=== PATIENT | female | born 1980 | race Caucasian/White ===

== ENCOUNTER 2023-06-19 21:17 | Outpatient (CLI) | payer MEDICARE, OTHER, SELFPAY ==
--- OUTSIDE RECORDS SUMMARY | 2023-06-19 21:21 | XMS_ITS | Encounter Summary ---
Author Name Unknown Organization [facility] Address [address] [place] [address] Care Team Providers Care General Farm Manager Name Role Phone Lesley Valencia M.D. Primary Care Provider Encounter Details Date Type Department Care Team (Late st Contact Info) Description 05/26/2023 Clinical Communication Department of Obstetrics and Gynecology in [place], [place] [address] [place] [phone] Negrita Robertson, KIRSTEN, C.N.P. [address] [phone] Social History Tobacco Use Types Packs/Day Years Used Date Smoking Tobacco: Heavy Smoker Cigarettes 1.5 Smokeless Tobacco: Never Alcohol Use Standard Drinks/Week Comments No 0 (1 standard drink = 0.6 oz pure alcohol) diagnossed with alcohol abuse in 2007 Overall Financial Resource Strain (CARDIA) Answe r Date Recorded How hard is it for you to pa y for the very basics like food, housing, medical care, and heating? Somewhat hard 03/29/2023 Exercise Vital Sign Answer Date Recorde d On average, how many days pe r week do you engage in moderate to strenuous exercise (like a brisk walk)? 1 day 03/29/2023 On average, how many minutes do you engage in exercise at this level? 10 min 03/29/2023 Hunger Vital Sign Answer Date Recorded Within the past 12 months, y ou worried that your food would run out before you got the money to buy more. Sometimes true Within the past 12 months, t he food you bought just didn't last and you didn't have money to get more. Never true PRAPARE - Transportation Answer Date Re corded In the past 12 months, has l ack of transportation kept you from medical appointments or from getting medications? No 03/12 In the past 12 months, has l ack of transportation kept you from meetings, work, or from getting things needed for daily living? No 03/29/2023 Nutrition Answer Date Recorded Nutrition: EVOO Fat Source Unknown 03/29 On average, how many serving s of fruits and vegetables do you eat per day (serving size is equal to 1 cup or approximately the size of a tennis ball)? 0-2 03/29/2023 Dental Answer Date Recorded Dental: Regular Dentist Yes 03/29/20 Employment Answer Date Recorded Employment status Permanently disabled Housing Stability Answer Date Recorded What is your living situation today? I have a [facility] place to live 03/29/2023 Sex and Gender Information Value Date Recorded Sex Assigned at Female 03/29/2023 10:01 AM CDT Gender Identity Female 03/29/2023 10:01 AM CDT Sexual Orientation Lesbian or Gill 03/29/2023 10 :01 AM CDT documented as of this encounter Miscellaneous Notes * Telephone Encounter - Maria D Church R.N. - 05/29/2023 8:23 AM LITHOGRAPHIC PROOFER APPRENTICE Patient notified of Negrita's recommendations.Questions when to take the medication. Advised the prescription states daily. She will read prescription insert and notify if any questions. OGRAPHIC PROOFER APPRENTICE * Telephone Encounter - Kristian Garcia R.N. - 05/26/2023 4:45 PM LITHOGRAPHIC PROOFER APPRENTICE Detailed message left to start the Veozah and discontinue taking the black cohosh. Encouraged patient to call back with any side effects or additional questions. OGRAPHIC PROOFER APPRENTICE documented in this encounter Plan of Treatment Upcoming Encounters Date Type Department Care Team (Latest Contact Info) Description 07/18/2023 8:30 AM LITHOGRAPHIC PROOFER APPRENTICE Procedure visit Department of Obstetrics and Gynecology in [place], [place] [address] [place] [phone] Negrita Robertson APRN, C.N.P. [address] [phone] Discharge Disposition: Home or Self Care documented as of this encounter Visit Diagnoses Not on filedocumented in this encounter Care Teams General Farm Manager Relationship Specialty Start Date End Date Lesley Valencia M.D. [address] [place] [phone] PCP - General Family Medicine 03/17/22 documented as of this encounter
--- OUTSIDE RECORDS SUMMARY | 2023-06-19 21:21 | XMS_ITS | Encounter Summary ---
Author Name Unknown Organization [facility] Address [address] [place] [address] Care Team Providers Care Brilliandeer Lopper Name Role Phone Lesley Valencia M.D. Primary Care Provider Encounter Details Date Type Department Care Team (Late st Contact Info) Description 05/25/2023 Orders Only Pharmacy Prior Auth [phone] Sonja Renee Social History Tobacco Use Types Packs/Day Years [...] your living situation today? I have a [facility] place to live 03/29/2023 Sex and Gender Information Value Date Recorded Sex Assigned at Female 03/29/2023 10:01 AM CDT Gender Identity Female 03/29/2023 10:01 AM CDT Sexual Orientation Lesbian or Gill 03/29/2023 10 :01 AM CDT documented as of this encounter Plan of Treatment Upcoming Encounters Date Type Department Care Team (Latest Contact Info) Description 07/18/2023 8:30 AM CAR PUSHER Procedure visit Department of Obstetrics and Gynecology in [place], [place] [address] [place] [phone] Negrita Robertson, FULLER BRUSH WORKER, C.N.P. [address] [phone] Discharge Disposition: Home or Self Care documented as of this encounter Visit Diagnoses Not on filedocumented in this encounter Care Teams Brilliandeer Lopper Relationship Specialty Start Date End Date Lesley Valencia M.D. [address] [place] [phone] PCP - General Family Medicine 03/17/22 documented as of this encounter
--- OUTSIDE RECORDS SUMMARY | 2023-06-19 21:21 | XMS_ITS | Clinical Summary ---
Author Name Unknown Organization [facility] Address [place], [place] [address] Care Team Providers Care Pharmacy Buyer Name Role Phone Oliver Herrera MD Unavailable Mariano Velazco MD Primary Care Provider Vikki Cross MD Unavailable Claudy Hurtado RN Unavailable Екатерина Dumont TRAY LINE SUPERVISOR Unavailable Allergies Active Allergy Reactions Criticality Noted Date Comments Adhesive Tape-Silicones Rash 03/04/2022 Bupropion Hcl Seizures High 08/27/2021 Buspirone Intolerance-Can't Take 09/04/2018 Suicidal ideation Varenicline Intolerance-Can't Take 09/04/2018 Suicidal ideation Clonidine Hcl Rash Low 12/23/2021 Lurasidone Other - Describe In Comment Field 04/07/2023 Increase cravings for nicotine Fluoxetine Other - Describe In Comment Field 02/09/2022 Weird dreams Quetiapine Fumarate Other - Describe In Comment Field 03/04/2022 Quetiapine Vestibular Toxicity High 12/27/2021 Ketorolac Itching 03/11/2022 Tramadol Itching 11/04/2022 States she had med around a year ago, that caused itching. Varenicline Tartrate Intolerance-Can't Take 01/31/2023 Medications Medication Sig Dispensed Refills Start Date End Date Status CaneIndications:Ch ronic bilateral low back pain without sciatica Single Point Cane for home use. 1 Device 0 06/22/19 19 Active Shower ChairIndications:C hronic bilateral low back pain without sciatica,Bulge of lumbar disc without myelopathy,Pseudos eizures For home use. 1 Each 0 04/27/20 21 Active albuterol (PROVENTIL) 0.083 % neb solutionIndication s:Moderate persistent asthma with acute exacerbation Inhale 3 mL (2.5 mg) via a nebulizer every 4 hours if needed for Cough 1st choice or Shortness of Breath 1st choice. 75 mL 09/14/19 22 Active albuterol-ipratrop ium (DUONEB) (2.5-0.5 mg) in 3 mL NEBULIZATION solutionIndication s:Moderate persistent asthma, unspecified whether complicated Inhale 3 mL via a nebulizer 4 times daily if needed for Shortness of Breath 1st choice (shortness of breath). 75 mL 0 11/30/19 22 Active NebulizerIndicatio ns:Moderate persistent asthma with acute exacerbation Nebulizer, disposable neb kit x 4, reuseable neb kit x 1, mask x 1, filters x 1. Frequency of use: daily; Medication: Albuterol and Duonebs. Length of need: lifelong months 1 Each 0 02/10/20 22 Active SUMAtriptan (IMITREX) 100 mg tabletIndications: Migraine syndrome Take 1 Tablet (100 mg) by mouth every 2 hours if needed for Migraine. Give at minimum 2hrs apart. Max Dose: 200mg per 24hrs. 10 Tablet 3 02/10/20 22 Active acetaminophen (TYLENOL EXTRA STRGTH) 500 mg tabletIndications: Chronic midline low back pain without sciatica,Chronic radicular cervical pain Take 2 Tablets (1,000 mg) by mouth every 6 hours if needed for Pain. Max acetaminophen dose: 4000mg in 24 hrs. 60 Tablet 6 03/09/20 22 Active fluticasone (50 mcg per actuation) nasal solution (FLONASE)Indicatio ns:Acute maxillary sinusitis, recurrence not specified Inhale 1 [place] into affected nostril(s) once daily. 16 g 0 03/23/20 22 Active cyclobenzaprine (FLEXERIL) 10 mg tabletIndications: Chronic low back pain without sciatica, unspecified back pain laterality TAKE 1 TABLET (10 MG) BY MOUTH 3 TIMES DAILY IF NEEDED FOR MUSCLE SPASM. 90 Tablet 3 05/23/20 Active blood-glucose meterIndications:P rediabetes As directed. Dispense meter covered by pt ins. E11.9 NIDDM type II - Test 1 time/day 1 Each 0 07/27/19 Active blood sugar diagnostic (Blood Glucose Test) stripIndications:P rediabetes Test 1 times per day. 100 Each 07/27/19 Active lancetsIndications :Prediabetes As directed. Test 1 times per day. 100 Each 07/27/19 Active melatonin 10 mg tabIndications:Ins omnia, unspecified type Take 2 Tablets (20 mg) by mouth at bedtime. 0 08/04/19 Active TENS unit and electrodes cmpkIndications:Ch ronic midline low back pain without sciatica As directed. She has the unit, but needs electrodes and pads. Use the Tens unit on the low back as needed. 1 Each 0 08/11/19 Active dicyclomine (BENTYL) 20 mg tabletIndications: Chronic bilateral low back pain without sciatica TAKE 1 TABLET BY MOUTH FOUR TIMES A DAY NEEDED FOR ABDOMINAL PAIN. 30 Tablet 0 08/31/19 Active ibuprofen (ADVIL; MOTRIN) 200 mg tabletIndications: Acute pain of left knee TAKE 2 TABLETS (400 MG) BY MOUTH EVERY 4 HOURS IF NEEDED FOR PAIN. 720 Tablet 1 09/24/19 Active metoprolol succinate (TOPROL XL) 50 mg sustained-release tabletIndications: Tachycardia Take 1 Tablet (50 mg) by mouth once daily. 90 Tablet 3 10/20/19 Active OLANzapine (ZYPREXA, FILM COATED TABLET,) 10 mg tabletIndications: Bipolar 1 disorder (HC) 1 Tablet nightly as needed for manic symptoms (decreased sleep, increased energy, impulsivity) 30 Tablet 2 12/24/19 Active Walker - 4 wheelsIndications: Traumatic brain injury, without loss of consciousness, sequela (HC),Chronic bilateral low back pain without sciatica Repair walker. 1 Each 0 01/25/20 Active dextroamphetamine- amphetamine (AdderalL) 20 mg tabletIndications: ADHD (attention deficit hyperactivity disorder), combined type Take 1 Tablet (20 mg) by mouth two times daily. 60 Tablet 0 10/23/20 23 Active propranoloL (INDERAL) 20 mg tabletIndications: Anxiety disorder, unspecified type Take 1-2 Tablets (20-40 mg) by mouth 3 times daily if needed (anxiety/panic symptoms). 180 Tablet 5 02/01/20 23 Active loperamide (IMODIUM) 2 mg capsuleIndications :Abdominal pain, unspecified abdominal location,Loose stools Take 2 capsules (4mg) orally with 1st loose stool, then 1 capsule (2mg) with other loose stools. Max 16 mg in 24 hrs. 20 Capsule 0 02/16/20 23 Active diphenhydrAMINE (BENADRYL) 25 mg tabletIndications: Withdrawal from other psychoactive substance (HC) Take 1 Tablet (25 mg) by mouth every 6 hours if needed for Sleep. 15 Tablet 0 03/20/20 23 Active cetirizine (ZYRTEC) 10 mg tabletIndications: Congestion of right ear TAKE 1 TABLET (10 MG) BY MOUTH ONCE DAILY. 90 Tablet 3 03/21/20 23 Active atorvastatin (LIPITOR) 10 mg tabletIndications: Dyslipidemia TAKE 1 TABLET BY MOUTH AT BEDTIME 90 Tablet 3 03/21/20 23 Active durable medical equipment (DME)Indications:R ight carpal tunnel syndrome Quickfit wrist II, univ, rt 1 Each 0 03/24/20 23 Active Mucus-ER MAX 1,200 mg [id number]:Ac [place] sal[place] maxillary sinusitis, recurrence not specified TAKE 1 TABLET BY MOUTH EVERY 12 HOURS NEEDED FOR EXPECTORATION 14 Tablet 5 04/07/20 23 Active furosemide (LASIX) 20 mg tabletIndications: Bilateral lower extremity edema TAKE 1 TABLET BY MOUTH EVERY MORNING 30 Tablet 11 04/07/20 23 Active ARIPiprazole (ABILIFY) 10 mg tabletIndications: Bipolar 1 disorder (HC) Take 1 Tablet (10 mg) by mouth once daily. 90 Tablet 1 04/10/20 23 Active traZODone (DESYREL) 100 mg tabletIndications: Insomnia, unspecified type Take 2 Tablets (200 mg) by mouth at bedtime. 180 Tablet 1 04/10/20 23 Active dextroamphetamine- amphetamine (AdderalL) 20 mg tabletIndications: ADHD (attention deficit hyperactivity disorder), combined type Take 1 Tablet (20 mg) by mouth two times daily. 60 Tablet 0 07/01/19 24 Active ipratropium-albute roL (COMBIVENT RESPIMAT) (20-100 mcg each actuation) mist inhalerIndications :Moderate persistent asthma with acute exacerbation Inhale 1 Puff by mouth four times daily. 1 Each 11 04/19/20 23 Active levalbuterol (XOPENEX HFA) 45 mcg/actuation inhalerIndications :Moderate persistent asthma with acute exacerbation Inhale 1-2 Puffs by mouth every 4 hours if needed for Wheezing. 15 g 6 04/19/20 23 Active fluticasone furoate (Arnuity Ellipta) 200 mcg/actuation inhalerIndications :Moderate persistent asthma with acute exacerbation Inhale 1 Puff by mouth once daily. 1 Each 11 04/19/20 23 Active metFORMIN (GLUCOPHAGE XR) 500 mg Extended-Release tabletIndications: Class 2 severe obesity with body mass index (BMI) of 35 to 39.9 with serious comorbidity (HC) Take 2 Tablets (1,000 mg) by mouth once daily. 180 Tablet 3 04/24/20 Active bisacodyL (DULCOLAX) 5 mg delayed release tabletIndications: Generalized abdominal pain,Constipation by delayed colonic transit TAKE 1 TABLET (5 MG) BY MOUTH ONCE DAILY. 90 Tablet 3 05/08/20 23 Active pregabalin (LYRICA) 150 mg capsuleIndications :Chronic bilateral low back pain without sciatica,Chronic pain syndrome TAKE ONE CAPSULE BY MOUTH THREE TIMES A DAY 90 Capsule 5 05/16/20 23 Active sulfacetamide-sulf ur , 10 - 5%, (SULFACET-R) 10-5 % (w/w) clsrIndications:Hi dradenitis suppurativa wash affected area(s) daily. 340 g 2 05/23/20 23 Active clindamycin 1% (CLEOCIN-T) 1 % gelIndications:Hid radenitis suppurativa Apply to affected areas 2 times a day . 60 g 3 05/23/20 23 Active doxycycline (VIBRAMYCIN) 100 mg capsuleIndications :Hidradenitis suppurativa take 1 by mouth two times daily with full glass of water and food. 20 Capsule 0 05/23/20 23 Active acetaminophen-code ine (TYLENOL #3) 300-30 mg per tabletIndications: Nondisplaced fracture of medial malleolus of left tibia, subsequent encounter for closed fracture with routine healing,Muscle strain of left lower leg, initial encounter Take 1 Tablet by mouth every 4 hours if needed for Pain. Max acetaminophen dose: 4000mg in 24 hrs. 20 Tablet 0 05/23/20 23 Active ondansetron (ZOFRAN ODT) 4 mg disintegrating tabletIndications: Withdrawal from other psychoactive substance (HC) PLACE 2 TABLETS (8 MG) ON THE TONGUE EVERY 8 HOURS IF NEEDED FOR NAUSEA/VOMITING. 10 Tablet 0 05/30/20 23 Active dextroamphetamine- amphetamine (AdderalL) 20 mg tabletIndications: ADHD (attention deficit hyperactivity disorder), combined type Take 1 Tablet (20 mg) by mouth two times daily. 60 Tablet 0 05/30/20 23 Active acetaminophen-code ine (TYLENOL #3) 300-30 mg per tabletIndications: Nondisplaced fracture of medial malleolus of left tibia, subsequent encounter for closed fracture with routine healing,Muscle strain of left lower leg, initial encounter Take 1 Tablet by mouth every 4 hours if needed for Pain. Max acetaminophen dose: 4000mg in 24 hrs. 20 Tablet 0 05/30/20 23 Active lansoprazole (PREVACID) 30 mg capsuleIndications :Gastroesophageal reflux disease, unspecified whether esophagitis present Take 1 Capsule (30 mg) by mouth two times daily before meals. 60 Capsule 11 06/13/19 24 Active codeine-guaiFENesi n (ROBITUSSIN AC) 10-100 mg/5 mL liquidIndications: Cough, unspecified type Take 5 mL by mouth every 6 hours if needed for Cough. Max dose 60 mL per 24 hrs. 280 mL 0 06/13/19 24 Active acetaminophen-code ine (TYLENOL #3) 300-30 mg per tabletIndications: Nondisplaced fracture of medial malleolus of left tibia, subsequent encounter for closed fracture with routine healing,Muscle strain of left lower leg, initial encounter Take 1 Tablet by mouth every 4 hours if needed for Pain. Max acetaminophen dose: 4000mg in 24 hrs. 20 Tablet 0 06/14/19 24 Active diclofenac (VOLTAREN) 75 mg delayed-release tabletIndications: Patellofemoral syndrome of both knees,Fibromyalgia ,Chronic pain of right knee Take 1 Tablet (75 mg) by mouth two times daily with meals. 60 Tablet 1 06/14/19 24 Active esomeprazole (NEXIUM) 40 mg capsule Take 1 Capsule by mouth once daily. 0 01/28/20 22 024 Discontinued(*M ed complete/Regime n complete/Level of care change) lansoprazole (PREVACID) 30 mg capsuleIndications :Gastroesophageal reflux disease, unspecified whether esophagitis present TAKE 1 CAPSULE BY MOUTH EVERY DAY 30 Capsule 11 08/27/19 23 024 Discontinued(Re order (E-cancel not sent)) ondansetron (ZOFRAN ODT) 4 mg disintegrating tabletIndications: Withdrawal from other psychoactive substance (HC) Place 2 Tablets (8 mg) on the tongue every 8 hours if needed for Nausea/Vomiting. 10 Tablet 0 03/20/20 23 023 Discontinued dextroamphetamine- amphetamine (AdderalL) 20 mg tabletIndications: ADHD (attention deficit hyperactivity disorder), combined type Take 1 Tablet (20 mg) by mouth two times daily. 60 Tablet 0 05/02/20 23 023 dextroamphetamine- amphetamine (AdderalL) 20 mg tabletIndications: ADHD (attention deficit hyperactivity disorder), combined type Take 1 Tablet (20 mg) by mouth two times daily. 60 Tablet 0 06/01/20 23 023 Discontinued(*M edication adjustment) oxyCODONE (ROXICODONE) 5 mg immediate release tabletIndications: Primary osteoarthritis of both knees Take 1 Tablet (5 mg) by mouth every 4 hours if needed for Pain. 20 Tablet 0 04/11/20 23 024 Discontinued(*P atient states no longer taking) oxyCODONE-acetamin ophen (PERCOCET) 5-325 mg per tabletIndications: S/P carpal tunnel release TAKE 1 TABLET BY MOUTH EVERY 6 HOURS IF NEEDED FOR PAIN. MAX ACETAMINOPHEN DOSE: 4000MG IN 24 HRS. 10 Tablet 0 05/08/20 23 024 Discontinued(*P atient states no longer taking) oxyCODONE (ROXICODONE) 5 mg immediate release tabletIndications: S/P carpal tunnel release Take 1 Tablet (5 mg) by mouth every 4 hours if needed for Pain. 20 Tablet 0 05/15/20 23 024 Discontinued(*P atient states no longer taking) Active Problems Problem Noted Date Diagnosed Date Carpal tunnel syndrome of right wrist 04/24/2023 Subacromial impingement of right shoulder 2022 Subacromial impingement of left shoulder 023 Subacromial bursitis of both shoulders 3 Tendinitis of both rotator cuffs 04/10/2023 S/P left carpal tunnel release 03/07/2023 S/P left cubital tunnel release 03/07/2023 Gastroesophageal reflux disease 01/27/2023 Hyperlipidemia 01/27/2023 Bipolar disorder, mixed 11/23/2022 Carpal tunnel syndrome of left wrist 09/19/2022 Cubital tunnel syndrome on left 09/19/2022 Right carpal tunnel syndrome 09/19/2022 Opioid dependence, uncomplicated 08/10/2022 Traumatic brain injury, with out loss of consciousness, sequela 08/10/2022 Encounter for routine checki ng of intrauterine contraceptive device 03/15/2022 Overview: Pelvic ultrasound 03/28/2022 indicates IUD is within the uterine canal, in the fundus of the uterus. Encouraged ibuprofen and Tylenol on a scheduled basis for pain management. Menorrhagia 03/10/2022 Overview: Initiated Mirena IUD and 03/10/2022 for management. She will follow-up in 6 weeks or string check. Esophageal dysphagia 02/05/2022 Nausea & vomiting 12/31/2021 Depressed level of consciousness 12/31/2021 Leukocytosis 12/31/2021 Volume depletion 12/31/2021 Hypokalemia 12/31/2021 Controlled substance agreement signed 12/15/2021 Overview: 12/07/21 Vikki Cross MD/psychiatry COPD exacerbation 05/26/2021 Hydronephrosis with urinary obstruction due to ureteral calculus 11/28/2020 Asthma 11/27/2020 Urinary tract obstruction due to kidney stone Bulge of L5-S1 lumbar disc without myelopathy ASCUS of cervix with negative high risk HPV 02/2021 Overview: 07/21/2020 ASCUS/HPV Negative. PLAN: Pap/HPV testing due 07/2023 HOLLY 04/15/2019 AHI-11 04/30/2019 Chronic insomnia 04/30/2019 Intractable vomiting with nausea 02/01/2019 Epigastric pain 02/01/2019 Marijuana abuse, continuous 02/01/2019 Hypokalemia 02/01/2019 Personal history of urinary calculi 10/11/2018 ADHD (attention deficit hype ractivity disorder), combined type 06/08/2018 Chronic pain syndrome 03/12/2018 Fibromyalgia 03/20/2017 Dyslipidemia 04/01/2015 Closed fracture of fifth metacarpal bone of righ t hand 03/18/2015 Moderate persistent asthma with acute exacerbati on 01/02/2015 Bilateral low back pain without sciatica 015 Tobacco use disorder 01/02/2015 Morbid obesity 01/02/2015 Ongoing leg pain 10/15/2013 Pseudoseizures 06/21/2013 Neuropathic pain 06/21/2013 Spells of trembling 06/09/2013 Substance abuse 04/27/2013 Hearing voices 04/26/2013 Allergic rhinitis 04/23/2013 Seizure grand mal 02/21/2013 TBI (traumatic brain injury) 02/18/2013 Ureteral stricture 02/03/2012 Overview: Normal CT abd/pelvis 07/10/18 Esthela He MD. Reviewing her records shows she has seen Urology. They found stones that were not obstructing. They did note she has right hydronephrosis from a ureteral stricture, but she never followed up for this. She needs to see Urology to likely have surgery or a stent. I worry she will lose her kidney if this is not treated.Recheck here PRN. Pt presents with complaints of right flank and side pain for the last 2 weeks. It is getting worse over time. She was originally worked up for urinary obstruction and none was found. She was found to have ureteral stricture, but Urology told her there is no obstruction and they will not see her. She has to sit different to try to get comfortable. Alcohol abuse, episodic drinking behavior 2009 Generalized anxiety disorder 04/19/2009 Borderline personality disorder 12/30/2008 Panic disorder without agoraphobia Posttraumatic stress disorder Resolved Problems Problem Noted Date Diagnosed Date Resolved Date Drug-seeking behavior 08/10/20182022 Controlled substance agreement signed 06/28/2018 12/15/2021 Overview: 12/23/2020 Vikki Cross MD/psychiatry Bilateral pneumonia 03/11/2018 02/02/20 19 Acute respiratory failure with hypoxia 03/11/2018 06/08/2018 Acute respiratory failure with hypoxia 03/10/2018 02/01/2019 Sebaceous cyst 03/08/2017 02/01/2019 Sinus tachycardia 01/02/2015 02/01/2019 Mood disorder 01/02/2015 06/08/2018 Mood disorder 04/27/2013 05/22/2015 Borderline personality disorder 04/27/2013 05/22/2015 Chest pain 04/26/2013 03/17/2018 Asthma 04/23/2013 05/22/2015 Overdose 02/21/2013 04/26/2013 Acute respiratory failure 02/21/2013 Chronic back pain 02/13/2013 11/13/2018 Allergic rhinitis 11/19/2012 05/22/2015 Depression 09/30/2011 11/23/2022 Overdose 09/30/2011 04/26/2013 Respiratory failure 09/30/2011 12/08/19 12 Suicidal intent 09/30/2011 12/08/2011 ADD (attention deficit disorder) 03/09/2010 02/01/2019 Recurrent major depression i n partial remission 04/19/2009 09/14/2011 Major depressive disorder, r ecurrent episode, moderate 12/19/2008 04/19/2009 MAJOR DEPRESSION, SINGLE 12/11/200807/2008 Anxiety with somatic features 12/18/2006 04/07/2009 Tobacco use disorder 015 Bipolar disorder, current ep isode mixed, moderate 07/07/2022 Encounters Date Type Department Care Team Description 06/16/2023 8:26 AM RADIATION MONITOR - 06/16/2023 11:59 PM RADIATION MONITOR Hospital Encounter [facility] [place] [address] [place] [address] Morgan Pendleton PA Rein, Erik, PT 06/16/2023 Travel 06/14/2023 8:00 AM RADIATION MONITOR Office Visit [facility] [place] [address] [facility] [address] [place] [phone] Morgan Pendleton PA Follow Up (right knee) 06/13/2023 8:50 AM RADIATION MONITOR Telemedicine [facility] [address] [place] [address] Mariano Velazco MD Indigestion; Cough; Telehealth (No vitals/) 06/13/[address] [phone] Mariano Velazco MD Prior Authorization (codeine-guaiFENesin (ROBITUSSIN AC) 10-100 mg/5 mL liquid (DENIED/EXCLUDED)) 06/13/2023 Travel 06/09/2023 Telephone [facility] [address] [phone] Tunde Wright MD CALL BACK (wrist pain ) 06/06/[address] [address] Mariano Velazco MD Refill Request (acetaminophen-codei ne (TYLENOL #3) 300-30 mg per tablet) 06/06/2023 Telephone [facility] [address] [phone] Morgan Pendleton PA Refill Request 06/01/2023 8:18 AM RADIATION MONITOR - 06/01/2023 11:59 PM RADIATION MONITOR Hospital Encounter [facility] [address] [place] [address] Morgan Pendleton PA Rein, Erik, PT Right knee pain, unspecified chronicity; Patellofemoral syndrome of both knees; Primary osteoarthritis of both knees 06/01/2023 Travel 05/30/2023 Refill [facility] [address] [place] [address] Mariano Velazco MD Refill Request (Ondansetron) 05/30/2023 Telephone [facility] [address] [place] [address] Vikki Cross MD Medication Management (dextroamphetamine-a mphetamine (AdderalL) 20 mg tablet) 05/30/2023 Telephone [facility] [address] [phone] Morgan Pendleton PA Refill Request 05/26/2023 Telephone [facility] [address] [place] [address] Vikki Cross MD Medication Management (ANXIETY MED) 05/24/2023 Telephone [facility] [address] [address] Namrata Mccloud PA Medication Management (sulfacetamide-sulfu r , 10 - 5%, (SULFACET-R) 10-5 % (w/w) clsr) 05/23/2023 9:50 AM RADIATION MONITOR Office Visit [facility] [address] [phone] Namrata Mccloud PA Derm Problem 05/23/2023 Travel 05/17/2023 8:00 AM RADIATION MONITOR Office Visit [facility] [address] [place] [address] [address] [place] [address] Angélica Mcrae PA Follow Up 05/17/2023 Travel 05/15/2023 8:13 AM RADIATION MONITOR - 05/15/2023 11:59 PM RADIATION MONITOR Hospital Encounter [address] [address] Morgan Pendleton PA Henry, Lori J, LEAD [employer] SOFTWARE ENGINEER 05/15/2023 8:00 AM RADIATION MONITOR Office Visit [facility] [address] [place] [phone] Morgan Pendleton PA Hand Pain/problem (p/o 2 week s/p carpal tunnel release right) 05/15/2023 Refill [facility] [address] [facility] [address] Mariano Velazco MD Refill Request (Pregabalin) 05/15/2023 Travel 05/11/2023 8:16 AM RADIATION MONITOR - 05/11/2023 11:59 PM RADIATION MONITOR Hospital Encounter [facility] [place] [address] [facility] [address] Morgan Pendleton, Suleiman Maya, PT 05/11/2023 Travel 05/09/2023 8:00 AM RADIATION MONITOR Office Visit [address] [place] [address] Christine Duenas NP Follow Up 05/09/2023 Travel 05/08/2023 Patient Outreach [facility] [address] [place] [address] Maritza Monaco RN Primary RN Care Management (Abdominal pain/ED Risk 81%/05/07/23); ER Follow up (05/07/23) 05/08/2023 Refill [facility] [address] [facility] [place] [address] Mariano Velazco MD Refill Request (Bisacodyl) 05/08/2023 Refill [facility] [address] [facility] [address] [place] [address] Tunde Wright MD Refill Request (Oxycodone-acetamino phen) 05/07/2023 11:08 AM RADIATION MONITOR - 05/07/2023 2:32 PM RADIATION MONITOR Emergency [facility] [address] [facility] [place] [address] Renata Mariano NP Abdominal pain, unspecified abdominal location (Primary Dx) Discharge Disposition: Home Self Care 05/07/2023 10:50 AM RADIATION MONITOR Office Visit [facility] [address] [facility] [place] [address] Abdominal Pain 05/07/2023 Travel 05/03/2023 8:00 AM RADIATION MONITOR Office Visit [facility] [address] [place] [phone] Morgan Pendleton PA Follow Up (right knee) 05/03/2023 Telephone [facility] [place] [address] Hilton Hernandez MD sleep study and sooner appt 05/03/2023 Refill [facility] [place] [address] [facility] [address] [place] [phone] Tunde Wright MD Refill Request 05/03/2023 Travel 04/28/2023 Orders Only [facility] [address] [place] [phone] Tunde Wright MD <No scans attached> 04/27/2023 8:35 AM RADIATION MONITOR - 04/27/2023 9:25 AM RADIATION MONITOR Surgery [facility] [address] [place] [address] Tunde Wright MD CARPAL TUNNEL RELEASE - RT WRIST 04/27/2023 7:19 AM RADIATION MONITOR - 04/27/2023 9:50 AM RADIATION MONITOR Hospital Encounter [facility] [address] [place] [address] Tunde Wright MD S/P left carpal tunnel release (Primary Dx); S/P carpal tunnel release Discharge Disposition: Home Self Care 04/27/2023 Telephone [facility] [address] [facility] [address] [place] [id number] [facility] Appointment (Patient had a referral for being seen for knee pain.//Patient can be scheduled for office visit.//Any provider but Angélica, per patient in last encounter 04/24.//Left message for patient, and placed on waitlist.) 04/26/2023 9:19 AM RADIATION MONITOR - 04/26/2023 11:59 PM RADIATION MONITOR Hospital Encounter [facility] - [address] [address] Morgan Pendleton PA Rein, Erik, PT 04/26/2023 Travel 04/24/2023 8:20 AM RADIATION MONITOR Office Visit [facility]ine [address] 1 [place] [address] Tunde Wright MD Follow Up (right hand) 04/24/2023 Telephone [facility] [address] [place] [address] [address] [place] [address] Angélica Mcrae PA Referral (Pt has a referral for knee pain, she is already a patient here. Do you need her to fill out another packet for this or just a follow up ) 04/24/[address] [address] Екатерина Dumont NP Refill Request (Metformin) 04/24/2023 Travel 04/22/[address] [address] Екатерина Dumont TRAY LINE SUPERVISOR Refill Request (Metformin) 04/19/2023 7:50 AM RADIATION MONITOR Office Visit [address] [address] Mariano Velazco MD Medication Management (inhalers); Cough; Physical 04/19/2023 Travel 04/18/2023 1:40 PM RADIATION MONITOR Office Visit [facility] Clinic [address] 1 [place] [address] Tunde Wright MD Consult (Bilateral Subacromial shoulder injection ) 04/17/2023 8:00 AM RADIATION MONITOR Office Visit [facility] Clinic [address] 1 [place] [address] Morgan Pendleton PA Knee Pain/problem (bilateral knee pain/) 04/17/2023 Telephone [facility] [place] [address] [facility] 1 [place] [phone] Morgan Pendleton PA Need Meds (acetaminophen-codei ne (TYLENOL #3) 300-30 mg per tablet) 04/17/2023 Travel 04/13/2023 12:44 PM CDT - 04/13/2023 11:59 PM CDT Hospital Encounter [facility] [address] [facility] [place] [address] Encounter for screening mammogram for malignant neoplasm of breast 04/13/2023 Refill [facility] [address] [facility] [place] [address] Екатерина Dumont NP Refill Request (Metformin) 04/12/2023 8:10 AM CDT Procedure Only [facility] [address] [facility] 100 [place] [address] Norberto Rasmussen, Procedure (Bilateral SI ) 04/12/2023 7:55 AM CDT - 04/12/2023 11:59 PM CDT Hospital Encounter [facility] [address] [place] [address] Norberto Rasmussen, 04/12/2023 Travel 04/11/2023 10:46 AM CDT - 04/11/2023 11:59 PM CDT Hospital Encounter [facility] [address] [address] Morgan Pendleton PA Henry, Lori J, LAKEISHA 04/11/2023 Telephone [facility] [address] [place] [address] Morgan Pendleton PA Need Meds 04/10/2023 2:15 PM CDT Ancillary Procedure [facility] [address] [facility] 1 [place] [address] 04/10/2023 2:00 PM CDT Ancillary Procedure [facility] Clinic [address] [phone] 04/10/2023 1:40 PM CDT Office Visit [facility] [address] [place] [address] Tunde Wright MD Consult (Bilateral Shoulder) 04/10/2023 7:45 AM CDT Telemedicine [facility] [address] [place] [address] Vikki Cross MD Telehealth; Follow Up 04/10/2023 Travel 04/08/2023 Travel 04/06/2023 Refill [facility] [address] [place] [address] Vikki Cross MD Refill Request (Aripiprazole) 04/06/2023 Refill [facility] [address] [place] [address] Mariano Velazco MD Refill Request (Mucus-er Max, Furosemide) 04/05/2023 8:23 AM CDT - 04/05/2023 11:59 PM CDT Hospital Encounter [address] [address] Morgan Pendleton PA Rein, Erik, PT Right knee pain, unspecified chronicity; Primary osteoarthritis of both knees 04/05/2023 Telephone [facility] [address] [place] [address] [address] [place] [address] Norberto Rasmussen DO Rigging Helper Plan (Preprocedure call) 04/05/2023 Travel 04/03/2023 8:00 AM CDT Office Visit [facility] [address] 1 [place] [address] Morgan Pendleton PA Knee Pain/problem (f/u right knee) 04/03/2023 Travel 03/30/2023 Telephone [facility] Clinic [address] [address] Morgan Pendleton PA Medication Management (HYDROcodone-acetami nophen ([place]) (5-325 mg/tablet) //) 03/30/2023 Refill [facility] [address] [place] [address] Mariano Velazco MD Refill Request (Bisacodyl) 03/29/2023 Telephone [facility] [address] [address] Angélica Mcrae PA Biofeedback Therapy (NO PA REQUIRED BY [facility] FOR BIOFEEDBACK) 03/27/2023 3:00 PM CDT Office Visit [facility] [address] [place] [address] Hilton Hernandez MD Sleep Consult 03/27/2023 Travel 03/27/2023 Telephone [facility] [address] [address] Morgan Pendleton PA Knee Pain/problem (PAIN MANAGEMENT) 03/24/2023 10:20 AM CDT Office Visit [facility] [address] [address] Tunde Wright MD Recheck (Right hand/wrist) 03/24/2023 Travel 03/24/[address] [address] Angélica Mcrae PA Appointment (Patient called wondering if she can schedule her Biofeedback and/or her SI Joint, this financial writer informed the patient that we will have to check with insurance and we will give her a call when she is ready to be scheduled.); Prior Authorization (No PA required for ordered injection) 03/22/2023 9:00 AM CDT Office Visit [facility] [address] [address] Angélica Mcrae PA Consult; Lab 03/22/2023 Patient Outreach [facility] 100 [place] [address] Mariano Velazco MD Primary RN Care Management (Hot flashes; N/V); Ed F/u (03/21/2023) 03/22/2023 Travel 03/21/2023 3:14 AM CDT - 03/21/2023 5:33 AM CDT Emergency [facility] 200 [place] [address] Lucian Zarate MD Hot flashes (Primary Dx); Nausea and vomiting, unspecified vomiting type; Hyperglycemia Discharge Disposition: Home Self Care 03/20/2023 5:11 AM CDT - 03/20/2023 7:46 AM CDT Emergency [facility] 200 [facility] [place] [address] Jesus Maldonado MD Withdrawal from other psychoactive substance (HC) (Primary Dx) Discharge Disposition: Home Self Care 03/20/2023 Refill [facility] 100 [facility] [place] [address] Mariano Velazco MD Refill Request (Cetirizine, Atorvastatin) 03/20/2023 Travel from Last 3 Months Immunizations Name Administration Dates Next Due AMB INFLUENZA, IIV4 (AGE=>6M OS) MDV (Flu Clinic Only) 03/26/2020 Hepatitis B (Adult) 01/30/2013,08/03/2012,2011 Influenza Intradermal PF 18-64 yrs 03/03/2016, Influenza Virus, Unspecified 02/20/2018, 03/03/2016,03/31/2015,2011,04/12/2005 Influenza, IIV3 (Age 6-35 mos) 03/30/2015,2004 Influenza, IIV3 (Age >=3 years) 03/10/20 14,03/08/2013,02/24/2013,2011,02/12/2009,04/27/2005,04/12/2005 Influenza, IIV4 03/06/2023, 2,03/26/2019,2017,03/03/2016,03/31/2015,03/10/2014 Pneumococcal Conj 20-valent (Prevnar 20) 01/27/2023 Pneumococcal Poly,23-Valent (Pneumovax) 01/22/2013 Td (Age >=7 Years) 02/29/2008,11/10/2004, 004 Td, Preservative Free (age > = 7 Years) 11/10/2004 Tdap 01/16/2014,11/13/2013,06/04/2012 Family History Medical History Relation Name Comments Stroke Maternal Grandmother Diabetes Mother Heart Disease Mother OR at age 61 Hyperlipidemia Mother Hypertension Mother Obesity Mother Cancer-breast Paternal Grandmother Cancer-colon No Family History Relation Name Status Comments Brother 1 infection age: 40s Brother 2 OD trazodone Brother 3 ETOH and druga Brother 4 Alive 1/2 brother Father unknown Maternal Grandmother Mother Type 2 diabetes heart disease Paternal Grandmother Sister 1 Alive 1/2 sister Sister 2 Alive 1/2 sister Son Alive Social History Tobacco Use Types Packs/Day Years Used Date Smoking Tobacco: Every Day Cigarettes 1 26 Started: 06/12/1997 Passive Smoke Exposure: Never Smokeless Tobacco: Never Tobacco Cessation:Ready to Q uit: Yes; Counseling Given: Yes Comments:tried chantix and bad side effects from it- wants to Varenicline Trying to quit 08/15/22 upped it to 1.5 packs 11/23/22. Quit smoking on 06/12/2023 Alcohol Use Standard Drinks/Week Comments No 0 (1 standard drink = 0.6 oz pure alcohol) diagnossed with alcohol abuse in 2007, last use was 6 months ago PHQ-2 Answer Date Recorded PHQ-2 TOTAL SCORE 1 04/10/2023 Social Connections Answer Date Recorded Frequency of Communication with Friends and Fami ly 0 03/06/2023 Alcohol Use Answer Date Recorded How often do you have a drink containing alcohol ? 0 11/15/2021 Average Number of Drinks Not on file 022 Frequency of Binge Drinking Not on file 11/2021 Financial Resource Strain Answer Date R ecorded Difficulty of Paying Living Expenses 2 03/06/2023 Difficulty of Paying Living Expenses 1 03/06/2023 Food Insecurity Answer Date Recorded Worried About Running Out of Food in the Last Ye ar 1 03/06/2023 Transportation Needs Answer Date Record ed Lack of Transportation (Medical) 1 03/06/2023 Housing Stability Answer Date Recorded Unable to Pay for Housing in the Last Year 1 03/06/2023 Sex and Gender Information Value Date Recorded Sex Assigned at Female 11/06/2020 7:13 AM CDT Gender Identity Female 11/06/2020 7:13 AM CDT Sexual Orientation Lesbian or Gill 05/29/2022 5: 19 PM RADIATION MONITOR Obstetrics History Para Term AB IAB SAB Ectopic Multiple Livin g Live Births 0 0 0 0 0 0 0 0 0 0 Last Filed Vital Signs Vital Sign Reading Time Taken Comments Blood Pressure 122/76 05/17/2023 7:48 AM RADIATION MONITOR Pulse 94 05/17/2023 7:48 AM RADIATION MONITOR Temperature 36.6 ??C (97.9 ??F) 05/09/2023 7:46 AM CS T Respiratory Rate 12 05/17/2023 7:48 AM RADIATION MONITOR Oxygen Saturation 96% 05/17/2023 7:48 AM RADIATION MONITOR Inhaled Oxygen Concentration - - Weight 98 kg (216 lb) 05/07/2023 11:16 AM RADIATION MONITOR Height 157.5 cm (5' 2) 04/27/2023 7:54 AM RADIATION MONITOR Body Mass Index 39.51 04/27/2023 7:54 AM RADIATION MONITOR Plan of Treatment Upcoming Encounters Date Type Department Care Team (Late st Contact Info) Description 06/20/2023 9:30 AM RADIATION MONITOR Appointment [facility] 35 [place] [address] Imani Lawton PTA 35 [place] [address] 06/21/2023 9:00 AM RADIATION MONITOR Office Visit [facility] [address] [place] [address] Hilton Hernandez MD [address] [place] [address] 06/23/2023 7:45 AM RADIATION MONITOR Telemedicine [facility] [address] [place] [address] Vikki Cross MD [address] [place] [address] 06/23/2023 9:30 AM RADIATION MONITOR Appointment [address] [address] Suleiman Renee, PT 35 [place] [address] 06/23/2023 1:15 PM RADIATION MONITOR Office Visit [facility]ry [facility] Spine [address] [place] [phone] Tunde Wright MD [address] [address] 06/26/2023 8:00 AM RADIATION MONITOR Office Visit [facility]ry [facility]ine [address] [phone] Howard Isaac PA [address] [place] [address] [address] [place] [address] 06/28/2023 3:45 PM RADIATION MONITOR Appointment [address] [address] Suleiman Renee, PT [address] [place] [address] 07/05/2023 2:15 PM RADIATION MONITOR Appointment [address] [address] Suleiman Renee, PT [address] [place] [address] 07/11/2023 7:45 AM RADIATION MONITOR Telemedicine [facility] [address] [place] [address] Vikki Cross MD [address] [place] [address] 07/12/2023 8:00 AM RADIATION MONITOR Appointment [facility] [address] [address] Suleiman Renee, PT [address] [place] [address] 07/19/2023 8:00 AM RADIATION MONITOR Appointment [facility] [address] [address] Suleiman Renee, PT [address] [place] [address] 07/20/2023 10:30 AM RADIATION MONITOR Office Visit [facility]ine [address] [address] Ravindra Jett DPM [address] [place] [address] 07/21/2023 9:00 AM RADIATION MONITOR Office Visit [address] [address] Екатерина Dumont NP [address] [place] [address] 07/21/2023 10:00 AM RADIATION MONITOR Nutrition/Lead Ramp Agent [address] [address] [place] [address] 07/27/2023 8:00 AM RADIATION MONITOR Office Visit [facility] [address] [place] [address] Morgan Pendleton PA [address] [address] 08/18/2023 8:00 AM RADIATION MONITOR Office Visit [facility] [place] [address] [phone] Tunde Wright MD [address] [address] 08/22/2023 8:30 AM CDT Office Visit [facility] [address] [facility] [address] [place], [place] [address] Namrata Mccloud PA [address] [facility] [address] [place], [place] [address] 11/27/2023 8:30 AM CDT Office Visit [facility] 100 [place] [address] Mariano Velazco MD [address] [place] [address] Health Maintenance Due Date Last Done Comments COVID-19 vaccine series (#1) 1982 Pap test for age 21-65 07/21/2023 , 07/21/2020, 01/02/2017, Additional history exists Tetanus booster 01/17/2024 01/16/2014, 0609/2013, 06/04/2012, Additional history exists BMI (ht and wt on same day) for age 18+ 03/27/2024 03/27/2023, 01/27/2023, 01/26/2023, Additional history exists Depression screening for age 12+ 04/18/2024 04/18/2023, 04/13/2023, 04/12/2023, Additional history exists HIV for age 15-65 Completed 02/12/2009 Hepatitis C screening for ag e 18-79 Completed 02/12/2009 Tdap Completed 01/16/2014, 09/2013, 06/04/2012 Pneumococcal series for age 6-64 Completed 01/28/20 23, 01/22/2013 Influenza for age 9-49 Completed 3, 03/09/2022, 03/26/2020, Additional history exists Procedures Procedure Name Priority Date/Time Associated Diagnosis Comments URINE CULTURE KALEB 05/07/2023 1:56 PM RADIATION MONITOR URINALYSIS MICROSCOPIC Timed 05/07/2023 1:56 PM RADIATION MONITOR UA W/ SEDIMENT EXAM REFLEXED PER CRITERIA Today 05/07/2023 1:56 PM RADIATION MONITOR INFLUENZA A/B PCR STAT 05/07/2023 12: 38 PM RADIATION MONITOR COVID-19 MOLECULAR STAT 05/07/2023 12 :38 PM RADIATION MONITOR ,SERUM KALEB 05/07/2023 11:30 AM RADIATION MONITOR C-REACTIVE PROTEIN KALEB 05/07/2023 11 :30 AM RADIATION MONITOR CBC WITH AUTO DIFFERENTIAL STAT 05/07/2023 11:30 AM RADIATION MONITOR LACTATE VENOUS Today 05/07/2023 11:30 AM RADIATION MONITOR COMP METABOLIC PANEL STAT 05/07/2023 11:30 AM RADIATION MONITOR CBC WITH AUTO DIFFERENTIAL STAT 05/07/2023 11:30 AM RADIATION MONITOR RELEASE CARPAL TUNNEL Elective 04/27/2023 8:07 AM RADIATION MONITOR Carpal tunnel syndrome of right wrist Case Notes HOWARD WILL BE THERENO REP Special Needs POST OP APPT XR MAMMO DARNELL BILAT SCREEN Routine 04/13/2023 1:15 PM CDT Encounter for screening mammogram for malignant neoplasm of breast [facility] CNTR IMAGE STORAGE Routine 04/11/2023 10:46 AM CDT XR SHOULDER 4 VIEWS LEFT Routine 04/10/2023 1:45 PM CDT Left shoulder pain, unspecified chronicity XR SHOULDER 1 VIEW RIGHT Routine 04/10/2023 1:34 PM CDT Right shoulder pain, unspecified chronicity COMPLIANCE DRUG ANALYSIS Routine 03/22/2023 9:00 AM CDT Encounter for therapeutic drug monitoring CBC WITH AUTO DIFFERENTIAL STAT 03/21/2023 4:02 AM CDT LIPASE STAT 03/21/2023 4:02 AM CDT COMP METABOLIC PANEL STAT 03/21/2023 4:02 AM CDT CBC WITH AUTO DIFFERENTIAL STAT 03/21/2023 4:02 AM CDT ISTAT CHEM 8 CLINIC ONLY AND [facility] Timed 03/20/2023 7:33 AM CDT CBC WITH AUTO DIFFERENTIAL STAT 03/20/2023 5:43 AM CDT CBC WITH AUTO DIFFERENTIAL STAT 03/20/2023 5:43 AM CDT EKG 12 LEAD STAT 03/20/2023 5:31 AM CDT from Last 3 Months Results * (ABNORMAL) URINALYSIS MICROSCOPIC (05/07/2023 1:56 PM RADIATION MONITOR) RBC 0-2 0-2, None Seen /HPF 05/07/2023 2:27 PM RADIATION MONITOR [facility] WBC 0-2 0-2, 3-5, None Seen /HPF 05/07/2023 2:27 PM RADIATION MONITOR [facility] BACTERIA Moderate(A) None Seen, Rare, Few Bacteria/ HPF 05/07/2023 2:27 PM RADIATION MONITOR [facility] EPITHELIAL CELLS Few None Seen, Few Epi/HPF 05/07/2023 2:27 PM RADIATION MONITOR [facility] Mucus Present 05/07/2023 2:27 PM [facility] Urine URINE SPECIMEN / Unknown Non-Blood / Unknown 05/07/2023 1:56 PM RADIATION MONITOR 05/07/2023 2:16 PM RADIATION MONITOR Bree Patterson MD URINE Performing Organization Address City/[facility]/ZIP Co de Phone Number [facility] [address] [place] [address] * URINE CULTURE (05/07/2023 1:56 PM RADIATION MONITOR) CULTURE 10-50,000 CFU/mL of multiple organisms, probable contaminants 05/08/2023 1:20 PM [facility] Urine URINE SPECIMEN / Unknown Non-Blood / Unknown 05/07/2023 1:56 PM RADIATION MONITOR 05/07/2023 2:16 PM RADIATION MONITOR Renata Mariano TRAY LINE SUPERVISOR MICROBIOLOG Y Performing Organization Address City/[facility]/ZIP Co de Phone Number [facility] [address] [place] [address], * (ABNORMAL) UA W/ SEDIMENT EXAM REFLEXED PER CRITERIA (05/07/2023 1:56 PM RADIATION MONITOR) COLOR Yellow Yellow Color 05/07/2023 2:23 PM [facility] CLARITY Clear Clear Clarity 05/07/2023 2:23 PM [facility] SPECIFIC GRAVITY,URINE 1.020 1.010, 1.015, 1.020, 1.025 05/07/2023 2:23 PM [facility] PH,URINE 5.5 6.0, 7.0, 8.0, 5.5, 6.5, 7.5, 8.5 05/07/2023 2:23 PM [facility] UROBILINOGEN, QUALITATIVE Normal Normal EU/dl 05/07/2023 2:23 PM [facility] PROTEIN, URINE Negative Negative mg/dL 05/07/2023 2:23 PM RADIATION MONITOR [facility] GLUCOSE, URINE Negative Negative mg/dL 05/07/2023 2:23 PM [facility] KETONES,URINE Negative Negative mg/dL 05/07/2023 2:23 PM [facility] BILIRUBIN,URI NE Negative Negative 05/07/2023 2:23 PM [facility] OCCULT BLOOD,URINE Negative Negative 05/07/2023 2:23 PM [facility] NITRITE Negative Negative 05/07/2023 2:23 PM [facility] LEUKOCYTE ESTERASE Trace(A) Negative 05/07/2023 2:23 PM [facility] Urine URINE SPECIMEN / Unknown Non-Blood / Unknown 05/07/2023 1:56 PM RADIATION MONITOR 05/07/2023 2:16 PM RADIATION MONITOR Bree Patterson MD URINE [facility] [address] [place] [address] * COVID-19 MOLECULAR (05/07/2023 12:38 PM RADIATION MONITOR) Pathologist [facility] COVID 19 [place] MOLECULAR Not detected Not detected 05/07/2023 1:15 PM [facility] TESTING LABORATORY [facility] 05/07/2023 1:15 PM [facility] Comment:Specimen submitted t o [facility] for testing. Other SPECIMEN FROM NASOPHARYNGEAL STRUCTURE / Unknown Non-Blood / Unknown 05/07/2023 12:38 PM RADIATION MONITOR 05/07/2023 12:48 PM RADIATION MONITOR [facility] - 05/07/2023 1:15 PM RADIATION MONITOR This test has been authorized by FDA under an Emergency Use Authorization (EUA). This test is only authorized for the duration of time the declaration that circumstances exist justifying the authorization of the emergency use of in vitro diagnostic tests for detection of SARS-CoV-2 virus and/or diagnosis of COVID-19 infection under section 564(b)(1) of the Act, 21 U.S.C. 360bbb-3(b) (1), unless the authorization is terminated or revoked sooner. Renata Mariano NP MICROBIOLOG Y Performing Organization Address City/[facility]/ZIP Co de Phone Number [facility] [address] [place] [address] * INFLUENZA A/B PCR (05/07/2023 12:38 PM RADIATION MONITOR) [facility] INFLUENZA A PCR NOT Detected 05/07/2023 1:15 PM RADIATION MONITOR [facility] INFLUENZA B PCR NOT Detected 05/07/2023 1:15 PM [facility] Other SPECIMEN FROM NASOPHARYNGEAL STRUCTURE / Unknown Non-Blood / Unknown 05/07/2023 12:38 PM RADIATION MONITOR 05/07/2023 12:48 PM RADIATION MONITOR Renata Mariano NP MICROBIOLOG Y Performing Organization Address [facility] de Phone Number [facility] [address] [place] [address] * (ABNORMAL) CBC WITH AUTO DIFFERENTIAL (05/07/2023 11:30 AM RADIATION MONITOR) Only the most recent of3 resultswithin the time period is included. [facility] WHITE BLOOD COUNT 11.5(H) 4.5 - 11.0 thou/cu mm 05/07/2023 11:37 AM [facility] RED BLOOD COUNT 4.88 4.00 - 5.20 mil/cu mm 05/07/2023 11:37 AM [facility] HEMOGLOBIN 14.9 12.0 - 16.0 g/dL 05/07/2023 11:37 AM [facility] HEMATOCRIT 44.6 33.0 - 51.0 % 05/07/2023 11:37 AM [facility] MCV 91 80 - 100 fL 05/07/2023 11:37 AM [facility] MCH 30.5 26.0 - 34.0 pg 05/07/2023 11:37 AM [facility] MCHC 33.4 32.0 - 36.0 g/dL 05/07/2023 11:37 AM [facility] RDW 18.3(H) 11.5 - 15.5 % 05/07/2023 11:37 AM [facility] PLATELET COUNT 212 140 - 440 thou/cu mm 05/07/2023 11:37 AM [facility] MPV 10.4 6.5 - 11.0 fL 05/07/2023 11:37 AM [facility] % NEUT 71.2 % 05/07/2023 11:37 AM [facility] % LYMPH 22.8 % 05/07/2023 11:37 AM [facility] % MONO 5.6 % 05/07/2023 11:37 AM [facility] % EOS 0.1 % 05/07/2023 11:37 AM [facility] % BASO 0.3 % 05/07/2023 11:37 AM [facility] ABSOLUTE NEUTROPHILS 8.2(H) 1.7 - 7.0 thou/cu mm 05/07/2023 11:37 AM [facility] ABSOLUTE LYMPHOCYTES 2.6 0.9 - 2.9 thou/cu mm 05/07/2023 11:37 AM [facility] ABSOLUTE MONOCYTES 0.7 <0.9 thou/cu mm 05/07/2023 11:37 AM [facility] ABSOLUTE EOSINOPHILS 0.0 <0.5 thou/cu mm 05/07/2023 11:37 AM [facility] ABSOLUTE BASOPHILS 0.0 <0.3 thou/cu mm 05/07/2023 11:37 AM [facility] Blood BLOOD SPECIMEN / Unknown Venipuncture / Unknown 05/07/2023 11:30 AM [facility] 05/07/2023 11:34 AM RADIATION MONITOR Bree Patterson MD HEMATOLOG Y [facility] [address] [place] [address] * LACTATE VENOUS (05/07/2023 11:30 AM RADIATION MONITOR) [facility] LACTATE,VENOUS 0.9 0.5 - 2.0 mmol/L 05/07/2023 11:54 AM RADIATION MONITOR [facility] Blood BLOOD SPECIMEN / Unknown Venipuncture / Unknown 05/07/2023 11:30 AM RADIATION MONITOR 05/07/2023 11:34 AM RADIATION MONITOR Bree Patterson MD CHEMISTRY [facility] [address] [place] [address] * ,SERUM (05/07/2023 11:30 AM RADIATION MONITOR) [facility] ,SERU M Negative Negative 05/07/2023 12:38 PM RADIATION MONITOR [facility] Blood BLOOD SPECIMEN / Unknown Venipuncture / Unknown 05/07/2023 11:30 AM RADIATION MONITOR 05/07/2023 11:34 AM RADIATION MONITOR Renata Mariano NP CHEMISTRY Performing Organization Address City/[facility]/ZIP Co de Phone Number [facility] [address] [place] [address] * (ABNORMAL) C-REACTIVE PROTEIN (05/07/2023 11:30 AM RADIATION MONITOR) [facility] C-REACTIVE PROTEIN 0.6(H) <0.5 mg/dL 05/07/2023 12:33 PM RADIATION MONITOR [facility] Blood BLOOD SPECIMEN / Unknown Venipuncture / Unknown 05/07/2023 11:30 AM RADIATION MONITOR 05/07/2023 11:34 AM RADIATION MONITOR Renata Mariano NP CHEMISTRY Performing Organization Address City/[facility]/ZIP Co de Phone Number [facility] [address] [place] [address] * (ABNORMAL) COMP METABOLIC PANEL (05/07/2023 11:30 AM RADIATION MONITOR) Only the most recent of2 resultswithin the time period is included. SODIUM 137 136 - 145 mmol/L 05/07/2023 11:53 AM [facility] POTASSIUM 3.5 3.5 - 5.1 mmol/L 05/07/2023 11:53 AM [facility] CHLORIDE 102 98 - 107 mmol/L 05/07/2023 11:53 AM [facility] CO2,TOTAL 23 22 - 29 mmol/L 05/07/2023 11:53 AM [facility] ANION GAP 12 5 - 18 05/07/2023 11:53 AM [facility] GLUCOSE 118(H) 70 - 99 mg/dL 05/07/2023 11:53 AM [facility] CALCIUM 9.7 8.6 - 10.0 mg/dL 05/07/2023 11:53 AM [facility] BUN 10 6 - 20 mg/dL 05/07/2023 11:53 AM [facility] CREATININE 0.95(H) 0.50 - 0.90 mg/dL 05/07/2023 11:53 AM [facility] BUN/CREAT RATIO 11 10 - 20 11:53 AM [facility] eGFR 77(L) >90 mL/min/1.7 3m2 05/07/2023 11:53 AM [facility] Comment:As of 2021, eG FR is calculated by the CKD-EPI creatinine equation without race adjustment. ??eGFR can be influenced by muscle mass, exercise, and diet. ??The reported eGFR is an estimation only and is only applicable if the renal function is stable. ALBUMIN 4.3 4.0 - 4.9 g/dL 05/07/2023 11:53 AM [facility] PROTEIN,TOTAL 7.8 6.0 - 8.0 g/dL 05/07/2023 11:53 AM [facility] BILIRUBIN,TOTAL 0.4 0.0 - 1.2 mg/dL 05/07/2023 11:53 AM [facility] ALK PHOSPHATASE 112(H) 35 - 104 IU/L 05/07/2023 11:53 AM RADIATION MONITOR [facility] ALT (SGPT) 26 10 - 35 IU/L 05/07/2023 11:53 AM RADIATION MONITOR [facility] AST (SGOT) 24 10 - 35 IU/L 05/07/2023 11:53 AM RADIATION MONITOR [facility] Blood BLOOD SPECIMEN / Unknown Venipuncture / Unknown 05/07/2023 11:30 AM RADIATION MONITOR 05/07/2023 11:34 AM RADIATION MONITOR Bree Patterson MD CHEMISTRY [facility] [address] [place] [address] * XR MAMMO DARNELL BILAT SCREEN (04/13/2023 1:15 PM CDT) Anatomical Region Laterality Modality BREASTS, Breast Left, Breast Right Bilateral Mammography Impressions 04/14/2023 7:15 AM CDT ??There is no radiographic evidence for malignancy. ??Recommend annual mammograms. MAMMOGRAM ASSESSMENT: ??ACR 1 Negative PATIENTS: You will also receive a letter with your examination results in an easy to read format. ??If you have questions about your results, please contact your referring provider. Narrative 04/14/2023 7:15 AM CDT For Patients: As a result of the Century Cures Act, medical imaging exams and procedure reports are released immediately into your electronic medical record. You may view this report before your referring provider. If you have questions, please contact your health care provider. XR MAMMO DARNELL BILAT SCREEN [[id number]] CLINICAL HISTORY: ??This is an asymptomatic 43 y.o. patient. INDICATION FOR EXAM: Mammogram Screening. TECHNIQUE: CC & MLO views were obtained. ??This study was evaluated with the assistance of Computer-Aided Detection. Breast Tomosynthesis was used in interpretation. COMPARISON FILM: Yes 04/12/22 [employer] ?? FINDINGS: ??The breasts are heterogeneously dense, which may obscure small masses. There are no dominant masses, suspicious micro calcifications or areas of architectural distortion. Mariano Velazco MD MAMMO * XR SHOULDER 4 VIEWS LEFT (04/10/2023 1:45 PM CDT) Anatomical Region Laterality Modality SHOULDERS, SHOULDER L Computed R adiography 04/11/2023 7:02 AM CDT Impressions 04/11/2023 7:02 AM CDT No acute abnormality. Dictated by Patel Fonseca MD @ 04/11/2023 7:02:37 AM (Electronically Signed) Narrative 04/11/2023 7:02 AM CDT For Patients: ??As a result of the Cures Act, medical imaging exams and procedure reports are released immediately into your electronic medical record. ??You may view this report before your referring provider. ??If you have questions, please contact your health care provider. INDICATION: Chronic left shoulder pain. TECHNIQUE: Four views left shoulder. FINDINGS: Normal glenohumeral and AC joint spacing and alignment. Presumed old healed fracture of the left clavicle. No acute fracture or dislocation. No lytic bone destruction or soft tissue calcifications. Low cervical fixation hardware. Procedure Note Shaun Fonseca MD - 04/11/2023 For Patients: As a result of the Cures Act, medical imagingexams and procedure reports are released immediately into your electronicmedical record. You may view this report before your referring provider.If you have questions, please contact your health care provider. INDICATION: Chronic left shoulder pain. TECHNIQUE: Four views left shoulder. FINDINGS: Normal glenohumeral and AC joint spacing and alignment. Presumed oldhealed fracture of the left clavicle. No acute fracture or dislocation. No lytic bone destruction or soft tissuecalcifications. Low cervical fixation hardware. IMPRESSION: No acute abnormality. Dictated by Patel Fonseca MD @ 04/11/2023 7:02:37 AM (Electronically Signed) Tudne Wright MD GENERAL IMAGING * XR SHOULDER 1 VIEW RIGHT (04/10/2023 1:34 PM CDT) Anatomical Region Laterality Modality SHOULDERS, SHOULDER R Computed R adiography 04/11/2023 7:00 AM CDT Narrative 04/11/2023 7:00 AM CDT For Patients: ??As a result of the Cures Act, medical imaging exams and procedure reports are released immediately into your electronic medical record. ??You may view this report before your referring provider. ??If you have questions, please contact your health care provider. INDICATION: Chronic right shoulder pain. TECHNIQUE: Single axillary view of the right shoulder. COMPARISON: 10/02/2022. FINDINGS: Glenohumeral joint spacing and alignment normal. No subchondral lesions or soft tissue calcifications. Dictated by Patel Fonseca MD @ 04/11/2023 7:00:47 AM (Electronically Signed) Procedure Note Shaun Fonseca MD - 04/11/2023 For Patients: As a result of the Cures Act, medical imagingexams and procedure reports are released immediately into your electronicmedical record. You may view this report before your referring provider.If you have questions, please contact your health care provider. INDICATION: Chronic right shoulder pain. TECHNIQUE: Single axillary view of the right shoulder. COMPARISON: 10/02/2022. FINDINGS: Glenohumeral joint spacing and alignment normal. No subchondral lesions orsoft tissue calcifications. Dictated by Patel Fonseca MD @ 04/11/2023 7:00:47 AM (Electronically Signed) Tunde Wright MD GENERAL IMAGING * (ABNORMAL) COMPLIANCE DRUG ANALYSIS (03/22/2023 9:00 AM CDT) 6-MONOACETYL MORPHINE NEG NEG ng/mL 03/30/2023 2:37 PM CDT [facility] AMPHETAMINE URINE POS(A) <=500 ng/mL 03/30/2023 2:37 PM CDT [facility] BARBITURATE URINE NEG <=200 ng/mL 03/30/2023 2:37 PM CDT [facility] BENZODIAZEPINE URINE NEG <=100 ng/mL 03/30/2023 2:37 PM CDT [facility] BUPRENORPHRINE URINE NEG <=5 ng/mL 03/12 2:37 PM [facility] COCAINE METAB URINE NEG <=300 ng/mL 03/30/2023 2:37 PM [facility] ETHYLGLUCURONIDE URINE NEG <=250 ng/mL 03/30/2023 2:37 PM [facility] FENTANYL URINE NEG <=4 ng/mL 03/30/2023 2:37 PM [facility] METHADONE URINE NEG <=300 ng/mL 03/30/2023 2:37 PM [facility] OPIATES URINE NEG <=300 ng/mL 03/30/2023 2:37 PM [facility] OXYCODONE URINE NEG <=100 ng/mL 03/30/2023 2:37 PM [facility] PROPOXYPHENE URINE NEG <=300 ng/mL 03/30/2023 2:37 PM [facility] THC 50 URINE POS(A) <=50 ng/mL 03/30/2023 2:37 PM [facility] Comment: Urine THC confirmed positive by GC/MS. The Confirmation Threshold Concentration for Urine THC-COOH is 15 ng/mL. Urine THC-COOH = 499 ng/mL TRAMADOL NEG <=200 ng/mL 03/30/2023 2:37 PM [facility] PH URINE 5.6 5.0 - 7.0 03/30/2023 2:37 PM [facility] CREAT UR 68 >=20 mg/dL 03/30/2023 2:37 PM [facility] MASS SPECTROMETRY URINE See Below 03/30/2023 2:37 PM [facility] Comment:Amphetamine, Cyclobe nzaprine, Diphenhydramine, Furosemide, Metformin, Ondansetron, and Propranolol present. Urine URINE SPECIMEN / Unknown Non-Blood / Unknown 03/22/2023 9:00 AM CDT 03/23/2023 7:33 AM T [facility] - 03/30/2023 2:37 PM T Current Outpatient Medications:Initial UTOX Bessy Munguia CMA8:42 AM03/22/23 acetaminophen (TYLENOL EXTRA STRGTH) 500 mg tablet, Take 2 Tablets (1,000 mg) by mouth every 6 hours if needed for Pain. Max acetaminophen dose: 4000mg in 24 hrs. albuterol (PROVENTIL) 0.083 % neb solution, Inhale 3 mL (2.5 mg) via a nebulizer every 4 hours if needed for Cough 1st choice or Shortness of Breath 1st choice. albuterol-ipratropium (DUONEB) (2.5-0.5 mg) in 3 mL NEBULIZATION solution, Inhale 3 mL via a nebulizer 4 times daily if needed for Shortness of Breath 1st choice (shortness of breath). ARIPiprazole (Abilify) 10 mg tablet, Take 1 Tablet (10 mg) by mouth once daily. atorvastatin (LIPITOR) 10 mg tablet, TAKE 1 TABLET BY MOUTH AT BEDTIME bisacodyL (DULCOLAX) 5 mg delayed release tablet, Take 1 Tablet (5 mg) by mouth once daily. blood sugar diagnostic (Blood Glucose Test) strip, Test 1 times per day. blood-glucose meter, As directed. Dispense meter covered by pt ins. E11.9 NIDDM type II - Test 1 time/day Cane, Single Point Cane for home use. cefdinir (OMNICEF) 300 mg capsule, Take 1 Capsule (300 mg) by mouth two times daily for 10 days. cetirizine (ZYRTEC) 10 mg tablet, TAKE 1 TABLET (10 MG) BY MOUTH ONCE DAILY. cyclobenzaprine (FLEXERIL) 10 mg tablet, TAKE 1 TABLET (10 MG) BY MOUTH 3 TIMES DAILY IF NEEDED FOR MUSCLE SPASM. dextroamphetamine-amphetamine (AdderalL) 20 mg tablet, Take 1 Tablet (20 mg) by mouth two times daily. [START ON 04/03/2023] dextroamphetamine-amphetamine (AdderalL) 20 mg tablet, Take 1 Tablet (20 mg) by mouth two times daily. dextroamphetamine-amphetamine (AdderalL) 20 mg tablet, Take 1 Tablet (20 mg) by mouth two times daily. dicyclomine (BENTYL) 20 mg tablet, TAKE 1 TABLET BY MOUTH FOUR TIMES A DAY NEEDED FOR ABDOMINAL PAIN. diphenhydrAMINE (BENADRYL) 25 mg tablet, Take 1 Tablet (25 mg) by mouth every 6 hours if needed for Sleep. esomeprazole (NEXIUM) 40 mg capsule, Take 1 Capsule by mouth once daily. fluticasone (50 mcg per actuation) nasal solution (FLONASE), Inhale 1 [place] into affected nostril(s) once daily. furosemide (LASIX) 20 mg tablet, Take 1 Tablet (20 mg) by mouth every morning. gabapentin (NEURONTIN) 100 mg capsule, Take 1 Capsule (100 mg) by mouth two times daily. ibuprofen (ADVIL; MOTRIN) 200 mg tablet, TAKE 2 TABLETS (400 MG) BY MOUTH EVERY 4 HOURS IF NEEDED FOR PAIN. ipratropium-albuteroL (COMBIVENT RESPIMAT) (20-100 mcg each actuation) mist inhaler, Inhale 1 Puff by mouth four times daily. lancets, As directed. Test 1 times per day. lansoprazole (PREVACID) 30 mg capsule, TAKE 1 CAPSULE BY MOUTH EVERY DAY levalbuterol (XOPENEX HFA) 45 mcg/actuation inhaler, INHALE 1-2 PUFFS BY MOUTH EVERY 4 HOURS IF NEEDED FOR WHEEZING. lidocaine 5 % topical patch, Apply to intact skin to cover most painful area for max 12hr per 24hr period. loperamide (IMODIUM) 2 mg capsule, Take 2 capsules (4mg) orally with 1st loose stool, then 1 capsule (2mg) with other loose stools. Max 16 mg in 24 hrs. melatonin 10 mg tab, Take 2 Tablets (20 mg) by mouth at bedtime. meloxicam (Mobic) 15 mg tablet, Take 1 Tablet (15 mg) by mouth once daily. metFORMIN (GLUCOPHAGE XR) 500 mg Extended-Release tablet, TAKE TWO TABLETS BY MOUTH EVERY EVENING WITH MEAL metoprolol succinate (TOPROL XL) 50 mg sustained-release tablet, Take 1 Tablet (50 mg) by mouth once daily. Nebulizer, Nebulizer, disposable neb kit x 4, reuseable neb kit x 1, mask x 1, filters x 1. ?? Frequency of use: daily; ??Medication: Albuterol and Duonebs. Length of need: lifelong months OLANzapine (ZYPREXA, FILM COATED TABLET,) 10 mg tablet, 1 Tablet nightly as needed for manic symptoms (decreased sleep, increased energy, impulsivity) ondansetron (ZOFRAN ODT) 4 mg disintegrating tablet, Place 2 Tablets (8 mg) on the tongue every 8 hours if needed for Nausea/Vomiting. pregabalin (LYRICA) 150 mg capsule, TAKE ONE CAPSULE BY MOUTH THREE TIMES A DAY propranoloL (INDERAL) 20 mg tablet, Take 1-2 Tablets (20-40 mg) by mouth 3 times daily if needed (anxiety/panic symptoms). Shower Chair, For home use. SUMAtriptan (IMITREX) 100 mg tablet, Take 1 Tablet (100 mg) by mouth every 2 hours if needed for Migraine. Give at minimum 2hrs apart. Max Dose: 200mg per 24hrs. TENS unit and electrodes cmpk, As directed. She has the unit, but needs electrodes and pads. Use the Tens unit on the low back as needed. tiZANidine (ZANAFLEX) 4 mg tablet, Take 1 Tablet (4 mg) by mouth every 8 hours if needed for Muscle Spasm. traZODone (DESYREL) 100 mg tablet, Take 2 Tablets (200 mg) by mouth at bedtime. Walker - 4 wheels, Repair walker. No current facility-administered medications for this visit. As of 03/22/2023 Release to patient->Immediate Angélica ABREU URINE [facility] [address] [place] [address] [address] [place] [address], * LIPASE (03/21/2023 4:02 AM CDT) LIPASE 38.2 13.0 - 60.0 IU/L 03/21/2023 4:28 AM CDT [facility] Blood BLOOD SPECIMEN / Unknown IV Start / Unknown 03/21/2023 4:02 AM CDT 03/21/2023 4:07 AM CDT Lucian Zarate MD CHEMISTRY [facility] [address] [place] [address] * (ABNORMAL) ISTAT CHEM 8 (SELECTED SITES ONLY) (03/20/2023 7:33 AM CDT) SODIUM, POCT 140 135 - 145 mmol/L 03/20/2023 7:36 AM [facility] POTASSIUM, POCT 4.3 3.5 - 5.0 mmol/L 03/20/2023 7:36 AM [facility] CHLORIDE, POCT 107 98 - 107 mmol/L 03/20/2023 7:36 AM [facility] CO2,TOTAL, POCT 22 21 - 31 mmol/L 03/20/2023 7:36 AM [facility] ANION GAP, POCT 16 5 - 18 7:36 AM [facility] GLUCOSE, POCT 03/20/2023 7:36 AM [facility] Comment:Unable to determine. IONIZED CALCIUM, POCT 1.15 1.15 - 1.27 mmol/L 03/20/2023 7:36 AM [facility] BUN, POCT 5(L) 8 - 25 mg/dL 03/20/2023 7:36 AM [facility] CREATININE, POCT 0.70 0.57 - 1.11 mg/dL 03/20/2023 7:36 AM [facility] Comment:Caution: Patients ta venus Hydroxyurea have falsely increased iStat Creatinine results. Verify creatinine results ordering a Creatinine (69187.2) BUN/CREAT RATIO, POCT 7(L) 10 - 20 03/20/2023 7:36 AM [facility] eGFR >90 >90 mL/min/1.7 3m2 03/20/2023 7:36 AM [facility] Comment:As of 2021, eG FR is calculated by the CKD-EPI creatinine equation without race adjustment. eGFR can be influenced by muscle mass, exercise, and diet. The reported eGFR is an estimation only and is only applicable if the renal function is stable. Blood BLOOD SPECIMEN / Unknown 03/20/2023 7:33 AM CDT 03/20/2023 7:36 AM CDT Jesus Maldonado MD CHEMISTRY [facility] [address] [place] [address] * EKG 12 LEAD (03/20/2023 5:31 AM CDT) Interpretation Normal sinus rhythm Normal ECG When compared with ECG of 22-DEC-2022 18:27, No significant change was found BEYOND NOW Ventricular Rate 89 BPM BEYOND NOW Atrial Rate 89 BPM BEYOND NOW P-R Interval 114 ms BEYOND NOW QRS Duration 70 ms BEYOND NOW QT 358 ms BEYOND NOW QTc 435 ms BEYOND NOW P [place] 17 degrees BEYOND NOW R [place] 33 degrees BEYOND NOW T [place] 31 degrees BEYOND NOW 03/20/2023 5:31 AM CDT 03/20/2023 10:18 AM CDT Jesus Maldonado MD EKG ORD BEYOND NOW [place], [place] from Last 3 Months Advance Directives Documents on File Type Date Recorded 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 Healthcare Directive 04/12/2017 11:57 AM 1 06/12/2016 Healthcare Directive 03/20/2017 4:09 PM Treatment Guidelines 06/15/2013 9:24 PM Latest Code Status on File Code Status Date Activated Date Inactivated Comments Full Code 04/27/2023 7:36 AM 04/27/2023 11:59 AM Question Answer Comments Code Status Discussion: Reviewed Preferences Code Status History Code Status Date Activated Date Inactivated Comments Full Code 11/02/2022 8:33 AM 11/02/2022 4:56 PM Question Answer Comments Code Status Discussion: Reviewed Preferences Full Code 12/31/2021 8:39 AM 01/02/2022 4:13 PM Question Answer Comments Code Status Discussion: Unable to Assess Preferences, Provider to review later Full Code 11/27/2020 10:55 AM 11/28/2020 12:04 PM Question Answer Comments Code Status Discussion: Discussed Full Code 02/01/2019 6:39 PM 02/03/2019 3:48 PM Care Teams Pharmacy Buyer Relationship Specialty Start Date End Date Mariano Velaczo MD [address] [place] [address] PCP - General Family Practice 07/02/20 Oliver Herrera MD Orthopedics Surgery - Orthopedics 07/29/19 Vikki Cross MD [address] [place] [address] Psychiatry 01/03/22 Claudy Hurtado, JOSHUA [address] [place] [address] Registered Nurse 08/24/22 Екатерина Dumont, [employer] SUPERVISOR [address] [place] [address] Nurse Practitioner - Family 08/24/22
--- OUTSIDE RECORDS SUMMARY | 2023-06-19 21:21 | XMS_ITS | Encounter Summary ---
Author Name Unknown Organization [facility] Address [address] [place] [address] Care Team Providers Care Senior Windows Administrator Name Role Phone Lesley Valencia M.D. Primary Care Provider Encounter Details Date Type Department Care Team (Late st Contact Info) Description 05/08/2023 Clinical Communication Department of Family Medicine, [facility], in [place], [place] [address] [place] [address] Lesley Valencia M.D. [address] [place] [address] Social History Tobacco Use Types Packs/Day Years [...] your living situation today? I have a [facility] to live 03/29/2023 Sex and Gender Information Value Date Recorded Sex Assigned at Female 03/29/2023 10:01 AM CDT Gender Identity Female 03/29/2023 10:01 AM CDT Sexual Orientation Lesbian or Gill 03/29/2023 10 :01 AM CDT documented as of this encounter Miscellaneous Notes * Telephone Encounter - Namrata Quiroz R.N. - 05/08/2023 12:32 PM FIRE ENGINE PUMP OPERATOR Called patient back and let her know that the prior authorization is still pending on .Patient requesting message be sent to PA team to see if anything further needs to be done. Let patient know that we were waiting on insurance to approve or deny. ENGINE PUMP OPERATOR documented in this encounter Plan of Treatment Upcoming Encounters Date Type Department Care Team (Latest Contact Info) Description 07/18/2023 8:30 AM FIRE ENGINE PUMP OPERATOR Procedure visit Department of Obstetrics and Gynecology in [address] [address] Negrita Robertson, CONFIGURATOR, C.N.P. [address] [facility] [place] [address] Discharge Disposition: Home or Self Care documented as of this encounter Visit Diagnoses Not on filedocumented in this encounter Care Teams Senior Windows Administrator Relationship Specialty Start Date End Date Lesley Valencia M.D. [address] [place] [phone] PCP - General Family Medicine 03/17/22 documented as of this encounter
--- OUTSIDE RECORDS SUMMARY | 2023-06-19 21:21 | XMS_ITS ---
Author Name Unknown Organization [facility] Address [address] [place] [address] Care Team Providers Care Maintenance Technician [address]Rd Shift Name Role Phone Unavailable Unavailable Unavailable Surgery Details Not on file Complications Check Surgery Details section. Procedure Estimated Blood Loss Check Surgery Details section. Procedure Findings Check Surgery Details section. Procedure Specimens Taken Check Surgery Details section.
--- OUTSIDE RECORDS SUMMARY | 2023-06-19 21:21 | XMS_ITS | Referral Summary ---
Author Name Unknown Organization [facility] Address [address] [place] [address] Care Team Providers Care Char House Supervisor Name Role Phone Lesley Valenica M.D. Primary Care Provider Source Comments Patient records contain information from all sites at [facility]. For routine questions regarding patient records, call [phone] during business hours, M-F 8:00 AM - 5:00 PM Central Time. Record requests for emergency care only can be directed to [phone] at any time.[facility] Encounters Date Type Department Care Team Description 05/26/2023 Clinical Communication Department of Obstetrics and Gynecology in [place], [place] [address] [place] [phone] Negrita Robertson APRN, C.N.P. 05/25/2023 Orders Only Pharmacy Prior Auth RO [phone] Sonja Renee 05/08/2023 Clinical Communication Pharmacy Prior Auth [place] [phone] Mariela Hartley 05/08/2023 Clinical Communication Department of Family Medicine, [facility], in [place], [place] [address] [place] [address] Lesley Valencia M.D. 05/02/2023 8:30 AM SCIENTIFIC ASSOCIATE Office Visit Department of Obstetrics and Gynecology in [place], [place] [address] [place] [address] Negrita Robertson APRN, C.N.P. Preventive Gynecological Examination Laboratory Test (Primary Dx); Symptoms Vasomotor Discharge Disposition: Home or Self Care 04/26/2023 Refill Department of Obstetrics and Gynecology in [address] [phone] Negrita Robertson APRN, C.N.P. Med Refill 03/30/2023 9:00 AM CDT Office Visit Department of Obstetrics and Gynecology in [address] [phone] Negrita Robertson APRN, C.N.P. Symptoms Vasomotor (Primary Dx) Discharge Disposition: Home or Self Care from Last 3 Months Allergies Active Allergy Reactions Criticality Noted Date Comments Adhesive Tape-Silicones Rash 03/04/2022 Buspirone Other (see comments) 09/04/2018 Suicidal ideation Suicidal ideation Clonidine Hcl Rash Low 12/23/2021 Fluoxetine Other (see comments) 02/09/2022 Weird dreams Ketorolac Itching 03/11/2022 Lurasidone Other (see comments) 04/07/2023 Increase cravings for nicotine Quetiapine Other (see comments) High 12/27/2021 Tramadol Itching 11/04/2022 States she had med around a year ago, that caused itching. Varenicline GI intolerance,Other (see comments) 09/04/2018 Suicidal ideation Suicidal ideation Bupropion Hcl Seizure 06/21/2018 Medications Medication Sig Dispensed Refills Start Date End Date Status acetaminophen (TYLENOL) 500 mg tablet Take 2 tablets by mouth every 6 (six) hours as needed. 0 01/17/2014 Active albuterol (ACCUNEB) 2.5 mg /3 mL nebulizer solution Inhale 1 vial. 0 Ac tive atorvastatin (LIPITOR) 10 mg tablet Take 1 tablet by mouth at bedtime. 0 01/28/2016 Active cholecalciferol (VITAMIN D3) 1,000 Unit capsule Take 1,000 Units by mouth. 0 07/18/2017 Active ibuprofen (ADVIL,MOTRIN) 600 mg tablet Take 1 tablet by mouth. 0 01/28/2016 Active ipratropium-albuter ol (DUO-NEB) 0.5-2.5 mg/3 mL nebulizer solution Inhale 3 mL. 0 03/18/2018 Acti ve melatonin 5 mg tablet Take 10 mg by mouth. 0 06/08/2018 Acti ve nicotine (NICODERM CQ) 21 mg/[address] 1 patch on the skin. 0 Active nicotine (NICOTROL) 10 mg inhaler Inhale 10 mg. 0 03/20/2017 Active nicotine (NICOTROL NS) 10 mg/mL nasal spray Administer 1 spray into affected nostril(s). 0 Active nicotine (NICODERM CQ) 14 mg/[address] 1 patch on the skin. 0 12/27/2016 Active nicotine (NICODERM CQ) 7 mg/[address] 1 patch on the skin. 0 12/27/2016 Active ondansetron ODT (ZOFRAN-ODT) [address] 1 TABLET ON THE TONGUE EVERY 8 HOURS IF NEEDED FOR NAUSEA VOMITING 2 05/01/2018 Active LYRICA 150 mg capsule Take 150 mg by mouth 3 (three) times a day. 0 06/01/2018 Active traZODone (DESYREL) 100 mg tablet 0 05/31/2018 Active cyanocobalamin (VITAMIN B12) 1,000 mcg tablet Take 1 tablet by mouth. 0 Active fluticasone (FLONASE) 50 mcg/actuation nasal spray Inhale 2 (two) times a day. 0 01/28/2016 Active multivitamin chewable tablet Chew. 0 Active esomeprazole (NexIUM) [address] capsule TAKE 1 CAPSULE BY ORAL ROUTE EVERY DAY 0 01/27/2022 Active lansoprazole (PREVACID) [address] capsule Take 30 mg by mouth. 0 Acti ve SUMAtriptan (IMITREX) 100 mg tablet TAKE 1 TABLET (100 MG) BY MOUTH EVERY 2 HOURS IF NEEDED FOR MIGRAINE. GIVE AT MINIMUM 2HRS APART. MAX DOSE: 200MG PER 24HRS. 0 02/15/2022 Active tiZANidine (ZANAFLEX) 4 mg tablet Take 4 mg by mouth. 0 07/02/2021 Activ e dextroamphetamine-a mphetamine (ADDERALL) 20 mg tablet Take 20 mg by mouth. 0 04/10/2022 Acti ve cetirizine (ZyrTEC) 10 mg tablet 0 03/09/2022 Active medroxyPROGESTERone (DEPO-PROVERA) 150 mg/mL injectionIndication s:Management Contraception By Injection,Menorrhag ia Inject 1 mL (150 mg total) intramuscularly every 3 (three) months. 1 mL 3 02/10/2023 Active lidocaine (LIDODERM) 5 % adhesive patch,medicated Apply to intact skin to cover most painful area for max 12hr per 24hr period. 0 02/13/2023 Active metFORMIN XR (GLUCOPHAGE-XR) 500 mg 24 hr tablet Take by mouth. 0 03/14/2023 Activ e blood sugar diagnostic strips (Blood Glucose Test Strips) Test 1 times per day. 0 07/27/2022 Active furosemide (LASIX) 20 mg tablet Take 20 mg by mouth. 0 03/06/2023 Ac tive meloxicam (MOBIC) 15 mg tablet Take 1 tablet by mouth daily. 0 03/13/2023 Active levalbuterol (XOPENEX HFA) 45 mcg/actuation inhaler Inhale 1-2 puffs every 4 (four) hours as needed. 0 11/09/2022 Active ipratropium-albuter oL (COMBIVENT RESPIMAT) 20-100 mcg/actuation inhaler Inhale 1 puff 4 (four) times a day. 0 08/30/2022 Active diphenhydrAMINE (BENADRYL) 25 mg tablet Take 25 mg by mouth every 6 (six) hours as needed. 0 03/20/2023 Active metoprolol succinate (TOPROL-XL) 50 mg 24 hr tablet TAKE 1 TABLET (50 MG) BY MOUTH ONCE DAILY. 0 Active bisacodyL (DULCOLAX) 5 mg EC tablet Take 5 mg by mouth. 0 01/24/2023 Activ e dicyclomine (BENTYL) 20 mg tablet Take by mouth. 0 08/30/2022 Active loperamide (IMODIUM A-D) 2 mg capsule Take 2 capsules (4mg) orally with 1st loose stool, then 1 capsule (2mg) with other loose stools. Max 16 mg in 24 hrs. 0 02/15/2023 Active cyclobenzaprine (FLEXERIL) 10 mg tablet TAKE 1 TABLET (10 MG) BY MOUTH 3 TIMES DAILY IF NEEDED FOR MUSCLE SPASM. 0 Active ARIPiprazole (ABILIFY) 10 mg tablet Take 10 mg by mouth. 0 03/13/2023 Acti ve OLANZapine (ZyPREXA) 10 mg tablet TAKE 1 TABLET BY MOUTH NIGHTLY NEEDED FOR MANIC SYMPTOMS (DECREASED SLEEP, INCREASED ENERGY, IMPULSIVITY) 0 Active fezolinetant (VEOZAH) 45 mg tabletIndications:S ymptoms Vasomotor Take 1 tablet (45 mg total) by mouth daily. 30 tablet 11 05/02/2023 Active Hospital, Clinic, or Other Facility Administered Medication Ordered Dose Route Frequency Start Date End Date Status medroxyPROGESTERone injection 150 mgIndications:Manageme nt Contraception By Injection,Menorrhagia 150 mg IM Every 3 months 02/10/2023 02/05/2024 Active Active Problems Problem Noted Date Diagnosed Date Symptoms Vasomotor 03/30/2023 Overview: Black cohosh is no longer effectively managing her hot flashes and night sweats. She did trial gabapentin without improvement in her hot flashes. Prescription for Veozah was faxed to her pharmacy and I assisted her in applying for the prescription savings plan through the medications website. If she is able to get the prescription, I would like blood work done in 3-4 months and a follow-up visit in clinic to see how she is tolerating the medication and to review her blood work. Management Contraception By Injection 02/10/2023 Overview: Utilizing Depo-Provera successfully for management of her menorrhagia since 04/01/2022. Constipation 02/10/2023 Overview: Diagnosed with severe constipation after emergency room visit periods started on laxatives daily for 2 weeks. Colonoscopy was scheduled for Monday, but patient canceled and will reschedule. Recommend against long-term laxative use common encouraged her to initiate MiraLax one capsule 1-2 times per day for management of her constipation. Laxatives can be saved for rescue. This was a likely cause of her right-sided pelvic pain. Frequency Urinary 02/10/2023 Overview: She does drink 40 oz of mountain dew and 50 oz of water per day. UA UC obtained and pending. I will plan to send her a portal message with results and we will treat accordingly. If negative, we can discuss behavioral management and medication options for management of OAB. Pain Pelvic Female 02/10/2023 Overview: Abdominal and pelvic CT scan on 01/22/2023 was normal. She was diagnosed with constipation and treated with laxatives. Pelvic ultrasound results on 02/16/2023 came back completely normal. She notes that at this point her pain has completely resolved. She will continue to monitor symptoms and contact me if pelvic pain symptoms returned. Menorrhagia 03/10/2022 Overview: Managing effectively with Depo-Provera since 04/01/2022. Attention Deficit Disorder Combined Type 018 Chronic Pain Syndrome 03/12/2018 Arthrodesis Status 04/18/2017 Fibromyalgia 03/20/2017 Dyslipidemia 04/01/2015 Pain Low Back Unspecified 01/02/2015 Asthma Moderate Persistent With Acute Exacerbati on 01/02/2015 Obesity Body Mass Index 30-39.9 Adult 01/02/2015 Tachycardia 01/02/2015 Nicotine Dependence Cigarettes 01/02/2015 Pain Leg 10/15/2013 Neuralgia And Neuritis Unspecified 06/21/2013 Tremor 06/09/2013 Other Psychoactive Substance Mild Use Disorder (Abuse) Uncomplicated 04/27/2013 Hallucination Auditory 04/26/2013 Rhinitis Allergic 04/23/2013 Other Generalized Epilepsy A nd Epileptic Syndromes Not Intractable Without Status Epilepticus 02/21/2013 Pain Back 02/13/2013 Depressive Disorder 09/30/2011 Alcohol Use Unspecified With Intoxication Unspec ified 02/05/2011 Alcohol Mild Use Disorder (Abuse) Uncomplicated 03/09/2010 Generalized anxiety disorder 04/19/2009 Borderline Personality Disorder 12/30/2008 Dizziness 07/20/2005 Syncope And Collapse 07/13/2005 Resolved Problems Problem Noted Date Diagnosed Date Resolved Date Surveillance Intrauterine Device 03/15/2022 02/10/2023 Overview: Pelvic ultrasound 03/28/2022 indicates IUD is within the uterine canal, in the fundus of the uterus. Encouraged ibuprofen and Tylenol on a scheduled basis for pain management. Menstrual Irregularity 06/21/201803/10 Pneumonia 03/11/2018 06/21/2018 Acute Respiratory Failure With Hypoxia 03/10/2018 06/21/2018 Sebaceous cyst 03/08/2017 06/21/2018 Fracture Fifth Metacarpal Cl osed Initial Right 03/18/2015 06/21/2018 Injury Intracranial With Los s Of Consciousness Initial 02/18/2013 06/21/2018 Stricture Ureter 10/10/2011 06/21/2018 Stone Ureteral 08/08/2011 06/21/2018 Immunizations Name Administration Dates Next Due HepB Adult 01/30/2013,08/03/2012,06/04/2012 Influenza (IM) Preservative Free 04/27/2005 Influenza Split 04/12/2005 Influenza Split Preservative Free ID 03/03/2016, 03/31/2015 Influenza TIV (IM) 03/10/2014, 3,02/24/2013,2011,02/12/2009,04/27/2005,04/12/2005 Influenza, Seasonal, Injectable 03/08/20 13,02/24/2013,05/01/2012,2008,04/12/2005 Influenza, Unspecified 03/03/2016,2014,05/01/2012,2008,04/27/2005 PPSV23 01/22/2013 Td (Adult), adsorbed 02/29/2008,11/10/2004,05/17 Td Preservative Free (TENIVA C, DECAVAC) 02/29/2008,11/10/2004,05/17/2004 Td, (Adult) Unspecified 11/10/2004 Tdap 01/16/2014,11/13/2013,06/04/2012 influenza vaccine quad (FLUZONE/FLUARIX) (6 months and older)(PF) 02/20/2018,03/03/2016,03/31/2015,2013 Social History Tobacco Use Types Packs/Day Years Used Date Smoking Tobacco: Heavy Smoker Cigarettes 1.5 Smokeless Tobacco: Never Tobacco Cessation:Ready to Q uit: Not Asked; Counseling Given: Not Answered Alcohol Use Standard Drinks/Week Comments No 0 [...] your living situation today? [facility] 03/29/2023 Sex and Gender Information Value Date Recorded Sex Assigned at Female 03/29/2023 10:01 AM CDT Gender Identity Female 03/29/2023 10:01 AM CDT Sexual Orientation Lesbian or Gill 03/29/2023 10 :01 AM CDT Last Filed Vital Signs Vital Sign Reading Time Taken Comments Blood Pressure 116/80 05/02/2023 8:18 AM SCIENTIFIC ASSOCIATE Pulse 107 04/11/2022 11:40 AM CDT Temperature - - Respiratory Rate 16 06/21/2018 1:46 PM SCIENTIFIC ASSOCIATE Oxygen Saturation - - Inhaled Oxygen Concentration - - Weight 100 kg (220 lb 9.1 oz) 05/02/2023 8:18 AM SCIENTIFIC ASSOCIATE Height 159.5 cm (5' 2.8) 02/17/2022 1:04 PM CDT Body Mass Index 39.33 02/17/2022 1:04 PM CDT Plan of Treatment Upcoming Encounters Date Type Department Care Team (Latest Contact Info) Description 07/18/2023 8:30 AM SCIENTIFIC ASSOCIATE Procedure visit Department of Obstetrics and Gynecology in [place], [place] [address] [place] [phone] Negrita Robertson APRN, C.N.P. [address] [place] [phone] Discharge Disposition: Home or Self Care Medical Devices Implanted Type Area Marketing Production Manager Device Identifier Shelf Expiration Date Model / Serial / Lot Mirena Iud-03/10/2022 Implanted:Qty : 1 on 03/10/2022 by Negrita Robertson APRN, C.N.P. Intrauterine Device Midline: Uterus William 05/10/2024 / / [id number] Description:Mirena IUD Advance Directives For more information, please contact: [phone] Documents on File Type Date Recorded Patient Box Strapper Expl anation Advance Directives 09/06/2012 12:00 AM Leg acy document. See document viewer. Care Teams Char House Supervisor Relationship Specialty Start Date End Date Lesley Valencia M.D. [address] [facility] [place] [phone] PCP - General Family Medicine 03/17/22
--- OUTSIDE RECORDS SUMMARY | 2023-06-19 21:21 | XMS_ITS | Encounter Summary ---
Author Name Unknown Organization [facility] Address [address] [place] [address] Care Team Providers Care Food Sales Clerk Name Role Phone Lesley Valencia M.D. Primary Care Provider [phone] Encounter Details Date Type Department Care Team (Late st Contact Info) Description 05/08/2023 Clinical Communication Pharmacy Prior Auth [place] [phone] Mariela Hartley Social History Tobacco Use Types Packs/Day Years [...] your living situation today? I have a [facility] place to live 03/29/2023 Sex and Gender Information Value Date Recorded Sex Assigned at Female 03/29/2023 10:01 AM CDT Gender Identity Female 03/29/2023 10:01 AM CDT Sexual Orientation Lesbian or Gill 03/29/2023 10 :01 AM CDT documented as of this encounter Plan of Treatment Upcoming Encounters Date Type Department Care Team (Latest Contact Info) Description 07/18/2023 8:30 AM BREAD AND PASTRY BAKER Procedure visit Department of Obstetrics and Gynecology in [place], [place] [address] [place] [phone] Negrita Robertson, SECURITY ORDERLY, C.N.P. [address] [phone] Discharge Disposition: Home or Self Care documented as of this encounter Visit Diagnoses Not on filedocumented in this encounter Care Teams Food Sales Clerk Relationship Specialty Start Date End Date Lesley Valencia M.D. [address] [place] [phone] PCP - General Family Medicine 03/17/22 documented as of this encounter
--- OUTSIDE RECORDS SUMMARY | 2023-06-19 21:21 | XMS_ITS | Referral Summary ---
Author Name Unknown Organization [facility] Address [address] [place] [address] Phone Care Team Providers Care Silk Weaver Name Role Phone Mariano Velazco Primary Care Provider [phone] Source Comments This disclosure is being made pursuant to the Care Everywhere program,applicable federal and state laws, and may not contain all informationavailable regarding this patient.[facility] Practices Allergies Active Allergy Reactions Criticality Noted Date Comments Bupropion Seizure High 07/27/2010 Possible seizure Buspirone OTHER 09/04/2018 Suicidal ideation Varenicline OTHER 09/04/2018 Suicidal ideation Medications Medication Sig Dispensed Refills Start Date End Date Status tiZANidine 4 mg tablet Take 4 mg by mouth every 8 hours as needed. 0 07/02/2021 Active TENS unit and electrodes cmpk 1 application as needed. 0 10/12/2020 Active traZODone 100 mg tablet Take 2 tablets by mouth daily at bedtime. 0 06/25/2021 Active pregabalin (LYRICA) 150 mg capsule Take 1 capsule by mouth 3 times daily. 0 02/03/2021 Active pantoprazole 40 mg delayed release tablet Take 1 tablet by mouth daily. 0 12/06/2020 Active oxyCODONE-acetaminoph en 5-325 mg per tablet Take 1 tablet by mouth every 4 hours as needed. 0 11/27/2020 Active pediatric multivitamin with minerals (FLINTSTONES) chewable tablet Take 2 tablets by mouth daily. 0 Active metFORMIN 500 mg extended release tablet Take 1,000 mg by mouth daily. 0 06/25/2021 Active melatonin 10 mg capsule Take 10 mg by mouth daily at bedtime. 0 Active miscellaneous medical supply For home use. 0 04/27/2021 Active LORazepam 0.5 mg tablet Take 1 tablet by mouth daily as needed. 0 06/29/2021 Active loperamide 2 mg tablet Take 2 mg by mouth 3 times daily as needed. 0 01/11/2021 Active albuterol-ipratropium 2.5 mg (3 mg albuterol sulfate)-0.5 mg/3 mL inhalation solution Use 3 mL by inhalation 4 times daily as needed. 0 07/21/2020 Active hydrOXYzine pamoate 50 mg capsule Take 50-100 mg by mouth 4 times daily as needed. For anxiety 0 06/25/2021 Active fluticasone 50 mcg/Actuation nasal spray Use 1 spray into both nostrils daily as needed. 0 07/15/2021 Active DULoxetine (CYMBALTA) 20 mg delayed release capsule Take 20 mg by mouth 2 times daily. 0 06/25/2021 Active dextroamphetamine-amp hetamine 20 mg tablet Take 1 tablet by mouth 2 times daily. 0 07/06/2021 Active cyanocobalamin (VITAMIN B-12) 1,000 mcg tablet Take 1 tablet by mouth daily. 0 Active cholecalciferol (VITAMIN D3) 25 mcg (1,000 unit) capsule Take 1,000 units by mouth daily. 0 09/03/2020 Active aspirin 81 mg enteric coated tablet Take 1 tablet by mouth daily. 0 09/05/2020 Active atorvastatin (LIPITOR) 10 mg tablet Take 1 tablet by mouth daily at bedtime. 0 07/21/2020 Active albuterol 90 mcg/actuation HFA inhaler Use 1-2 puffs by inhalation every 6 hours as needed. 0 Active ARIPiprazole (ABILIFY) 5 mg tablet Take 1 tablet by mouth daily at bedtime. 0 06/25/2021 Active albuterol (PROVENTIL) 2.5 mg/3 mL inhalation solution Use by inhalation every 6 hours as needed. 0 09/21/2020 Active dicyclomine 20 mg tabletIndications:Radu sea vomiting and diarrhea,Generalized abdominal pain Take 1 tablet (20 mg total) by mouth 3 times daily as needed (Abdominal pain). 30 tablet 11 07/24/2021 Active ondansetron 8 mg disintegrating tabletIndications:Radu sea vomiting and diarrhea,Generalized abdominal pain Take 1 tablet (8 mg total) by mouth every 8 hours as needed. 15 tablet 0 07/24/2021 Active diazePAM 5 mg tabletIndications:Cla ustrophobia Take 1 tab PO one hour prior to MRI, and bring 2nd tablet to MRI, and take just prior to scheduled MRI if needed. 2 tablet 0 11/12/2021 Active Active Problems Problem Noted Date Diagnosed Date Nausea 11/07/2021 Upper respiratory infection 11/07/2021 Leg cramps 11/01/2021 Right thigh pain 11/01/2021 Thigh sprain 11/01/2021 Anxiety 10/03/2021 Chest pain 10/03/2021 COPD exacerbation 05/26/2021 Asthma 11/27/2020 Urinary tract obstruction due to kidney stone Bulge of lumbar disc without myelopathy 10/30/19 ASCUS of cervix with negative high risk HPV 02/2021 Overview: 07/21/2020 ASCUS/HPV Negative. PLAN: Pap/HPV testing due 07/2023 Chronic insomnia 04/30/2019 HOLLY (obstructive sleep apnea) 04/30/2019 Epigastric pain 02/01/2019 Hypokalemia 02/01/2019 Intractable vomiting with nausea 02/01/2019 Marijuana abuse, continuous 02/01/2019 Personal history of urinary calculi 10/11/2018 Drug-seeking behavior 08/10/2018 Controlled substance agreement signed 06/28/2018 Overview: 12/23/2020 Vikki Cross MD/psychiatry Menstrual irregularity 06/21/2018 Attention deficit hyperactiv ity disorder (ADHD), combined type 06/08/2018 Chronic pain disorder 03/12/2018 Arthrodesis status 04/18/2017 Status post cervical spinal arthrodesis 04/18/20 17 Fibromyalgia 03/20/2017 Dyslipidemia 04/01/2015 Closed fracture of fifth metacarpal bone of righ t hand 03/18/2015 Moderate persistent asthma with exacerbation Morbid obesity 01/02/2015 Obesity with body mass index 30 or greater 01/02 Tachycardia 01/02/2015 Tobacco dependence due to cigarettes 01/02/2015 Tobacco use disorder 01/02/2015 Pain of lower extremity 10/15/2013 Neuropathic pain 06/21/2013 Neuropathy 06/21/2013 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 Depressive disorder 09/30/2011 Current drinker of alcohol 02/05/2011 Alcohol abuse, episodic drinking behavior 2009 Generalized anxiety disorder 04/19/2009 Borderline personality disorder 12/30/2008 Dizziness 07/20/2005 Syncope and collapse 07/13/2005 Immunizations Name Administration Dates Next Due Hepatitis B, adult (ENGERIX or RECOMBIVAX) 01/30/2013,08/03/2012,06/04/2012 Influenza 03/08/2013,02/24/2013,02/12/2009 Influenza, PF 03/30/2015,04/27/2005 Influenza, quadrivalent 03/26/2020 Influenza, quadrivalent PF 03/26/2019,,03/03/2016,2013 Influenza, unspecified 03/31/2015,05/01/2012,06/2004 Pneumococcal Polysaccharide, PPSV23 (Pneumovax 23) 01/22/2013 Td, adsorbed 02/29/2008,05/17/2004 Td, adult unspecified 11/10/2004 Tdap 01/16/2014,11/13/2013,06/04/2012 Social History Tobacco Use Types Packs/Day Years Used Date Smoking Tobacco: Every Day Cigarettes 1 Smokeless Tobacco: Never Comments:Started @ age 18 Alcohol Use Standard Drinks/Week Comments Never 0 (1 standard drink = 0.6 oz pur e alcohol) Sex and Gender Information Value Date Recorded Sex Assigned at Not on file Gender Identity Not on file Sexual Orientation Not on file Last Filed Vital Signs Vital Sign Reading Time Taken Comments Blood Pressure 128/85 10/21/2021 10:49 AM CDT Pulse 106 10/21/2021 10:49 AM CDT Temperature 37.1 ??C (98.7 ??F) 10/21/2021 10:49 AM C DT Respiratory Rate 22 10/21/2021 10:49 AM CDT Oxygen Saturation 97% 10/21/2021 10:49 AM CDT Inhaled Oxygen Concentration - - Weight 95.3 kg (210 lb 1.6 oz) 11/17/2021 8:32 A M CDT Height 157.5 cm (5' 2.01) 11/17/2021 8:32 AM CD T Body Mass Index 38.42 11/17/2021 8:32 AM CDT Plan of Treatment Not on file Care Teams Silk Weaver Relationship Specialty Start Date End Date Mariano Velazco [address] [facility] [address] [place] [id number] PCP - General Family Practice 07/24/21
--- OUTSIDE RECORDS SUMMARY | 2023-06-19 21:21 | XMS_ITS | Clinical Summary ---
Author Name Unknown Organization [facility] Address [address] [place] [address] Care Team Providers Care Lay Brother Name Role Phone Lesley Valencia M.D. Primary Care Provider [phone] Source Comments Patient records contain information from all sites at [facility]. For routine questions regarding patient records, call [phone] during business hours, M-F 8:00 AM - 5:00 PM Central Time. Record requests for emergency care only can be directed to [phone] at any time.[facility] Allergies Active Allergy Reactions Criticality Noted Date [...] Ureter 10/10/2011 06/21/2018 Stone Ureteral 08/08/2011 06/21/2018 Encounters Date Type Department Care Team Description 05/26/2023 Clinical Communication Department of Obstetrics and Gynecology in [place], [place] [address], [place] [address] Negrita Robertson APRN, C.N.P. 05/25/2023 Orders Only Pharmacy Prior Auth RO [phone] Sonja Renee 05/08/2023 Clinical Communication Pharmacy Prior Auth [place] [phone] Mariela Hartley 05/08/2023 Clinical Communication Department of Family Medicine, [facility], in [place], [place] [address] [place] [phone] Lesley Valencia M.D. 05/02/2023 8:30 AM POLICE RESERVES COMMANDER Office Visit Department of Obstetrics and Gynecology in [place], [place] [address] [place] [phone] Negrita Robertson APRN, C.N.P. Preventive Gynecological Examination Laboratory Test (Primary Dx); Symptoms Vasomotor Discharge Disposition: Home or Self Care 04/26/2023 Refill Department of Obstetrics and Gynecology in [place], [place] [address] [place] [address] Negrita Robertson APRN, C.N.P. Med Refill 03/30/2023 9:00 AM CDT Office Visit Department of Obstetrics and Gynecology in [address] [place] [address] Negrita Robertson, KIRSTEN, C.N.P. Symptoms Vasomotor (Primary Dx) Discharge Disposition: Home or Self Care from Last 3 Months Immunizations Name Administration Dates Next Due HepB [...] quad (FLUZONE/FLUARIX) (6 months and older)(PF) 02/20/2018,03/03/2016,03/31/2015,2013 Family History Medical History Relation Name Comments Throat cancer Father smoker Diabetes type II Mother Breast cancer Paternal Grandmother Relation Name Status Comments Father Mother Paternal Grandmother Alive Social History Tobacco Use Types Packs/Day [...] your living situation today? I have a [facility] place to live 03/29/2023 Sex and Gender Information Value Date Recorded Sex Assigned at Female 03/29/2023 10:01 AM CDT Gender Identity Female 03/29/2023 10:01 AM CDT Sexual Orientation Lesbian or Gill 03/29/2023 10 :01 AM CDT Last Filed Vital Signs Vital Sign Reading Time Taken Comments Blood Pressure 116/80 05/02/2023 8:18 AM POLICE RESERVES COMMANDER Pulse 107 04/11/2022 11:40 AM CDT Temperature - - Respiratory Rate 16 06/21/2018 1:46 PM POLICE RESERVES COMMANDER Oxygen Saturation - - Inhaled Oxygen Concentration - - Weight 100 kg (220 lb 9.1 oz) 05/02/2023 8:18 AM POLICE RESERVES COMMANDER Height 159.5 cm (5' 2.8) 02/17/2022 1:04 PM CDT Body Mass Index 39.33 02/17/2022 1:04 PM CDT Plan of Treatment Upcoming Encounters Date Type Department Care Team (Latest Contact Info) Description 07/18/2023 8:30 AM POLICE RESERVES COMMANDER Procedure visit Department of Obstetrics and Gynecology in [place], [place] [address] [place] [address] Negrita Robertson, CAFE ASSOCIATE, C.N.P. [address] [phone] Discharge Disposition: Home or Self Care Health Maintenance Due Date Last Done Comments HIV Screening 1982 Hepatitis C Screening 1982 Visit: Medicare Annual Wellness 1982 COVID-19 Vaccine (#1) 1982 Asthma Action Plan 06/21/2018 Asthma Control Test Questionnaire 06/21/2018 Depression Screening (Annual PHQ-2) 06/12/2023 DTaP,Tdap,and Td Vaccines (4 - Td or Tdap) 01/17/2024 01/16/2014, 11/13/2013, 06/04/2012, Additional history exists Mammogram 04/13/2024 04/13/2023, 07/2022, 04/12/2022 Creatinine Level (Kidney Function Test) 05/07/2024 05/07/2023, 03/21/2023, 03/20/2023, Additional history exists Glucose Test for Med Monitoring 05/07/2024 05/07/2023, 03/21/2023, 02/15/2023, Additional history exists Potassium Level 05/07/2024 05/07/2023, 03/12, 03/20/2023, Additional history exists Sodium Level 05/07/2024 05/07/2023, 03/12, 03/20/2023, Additional history exists Cervical Cancer Screening 03/10/2027 03/10/2022, Lipid (Cholesterol) Screening 01/28/2028 01/27/2023, 08/29/2022, 01/04/2022, Additional history exists Hepatitis B Vaccines Completed 01/30/2013, 08/03/2012, 06/04/2012 Pneumococcal vaccine (0-64 years) Completed 01/27/2023, 01/22/2013 Influenza Vaccine Completed 03/06/2023, , 03/26/2020, Additional history exists HPV Vaccines Aged Out No longer eligi ble based on patient's age to complete this topic Medical Devices Implanted Type Area Rickshaw Driver Device Identifier Shelf Expiration Date Model / Serial / Lot Mirena Iud-03/10/2022 Implanted:Qty : 1 on 03/10/2022 by Negrita Robertson APRN, C.N.P. Intrauterine Device Midline: Uterus William 05/10/2024 / / [id number] Description:Mirena IUD Advance Directives For more information, please contact: [phone] Documents on File Type Date Recorded Patient Car Rental Clerk Expl anation Advance Directives 09/06/2012 12:00 AM Leg acy document. See document viewer. Care Teams Lay Brother Relationship Specialty Start Date End Date Lesley Valencia M.D. [address] [place], [place] [address] [place] [phone] PCP - General Family Medicine 03/17/22
--- OUTSIDE RECORDS SUMMARY | 2023-06-19 21:21 | XMS_ITS | Encounter Summary ---
Author Name Unknown Organization [facility] Address [address] [place] [address] Phone Care Team Providers Care Forming Process Line Worker Name Role Phone Mariano Velazco Primary Care Provider Reason for Referral * Radiology Services (Routine) - Closed Specialty Diagnoses / Procedures Referred By Harman lira Referred To Contact Radiology Diagnoses Acute internal derangement of right knee Procedures [facility] MRI KNEE W WO CONTRAST RIGHT ([id number]) [facility] MRI KNEE WO CONTRAST RIGHT ([id number]) Salvatore Sullivan [address] [place] [address] Referral ID Status Reason Start Date Expiration Date Visits Re quested Visits Authorized [id number] Closed 11/02/2021 1 1 Encounter Details Date Type Department Care Team (Late st Contact Info) Description 11/16/2021 Ancillary Orders [facility] [address] [place], [place] [id number] Salvatore Sullivan [address] [place] [address] Social History Tobacco Use Types Packs/Day Years Used Date Smoking Tobacco: Every Day Cigarettes 1 Smokeless Tobacco: Never Comments:Started @ age 18 Alcohol Use Standard Drinks/Week Comments Never 0 (1 standard drink = 0.6 oz pur e alcohol) Sex and Gender Information Value Date Recorded Sex Assigned at Not on file Gender Identity Not on file Sexual Orientation Not on file documented as of this encounter Plan of Treatment Not on file documented as of this encounter Results * [facility] MRI KNEE W WO CONTRAST RIGHT ([id number]) (11/16/2021 11:53 AM CDT) Anatomical Region Laterality Modality knee Magnetic Resonan ce Impressions 11/16/2021 2:30 PM CDT IMPRESSION: 1. ??Mild insertional quadriceps tendinosis without tear. 2. ??Findings suggestive of lateral patellofemoral maltracking/fat pad impingement with patellofemoral compartment chondrosis. 3. 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 4. ??Hematopoietic marrow reconversion within the femoral and tibial diaphyses. 5. ??No suspicious osseous lesions. Electronically Signed By: Ruy Hall 11/16/2021 2:30 PM CDT Narrative 11/16/2021 2:30 PM CDT [facility] MRI KNEE W WO CONTRAST RIGHT ([id number]) Patient demographics: 41 year-old female INDICATION: Right knee pain anteriorly near the patellar apex; possible cyst on recent radiographs COMPARISON: Right knee radiographs on 10/21/2021 TECHNIQUE: A contrast-enhanced MRI of the right knee was performed. FINDINGS: OSSEOUS STRUCTURES: Alignment is anatomic. No acute fracture or osseous contusion. The background marrow signal is within normal limits. ??Within the lateral femoral condyle, there is a heterogeneous oval lesion with a markedly hypointense rim consistent with sclerosis with internal intrinsic T1 hyperintense signal which follows the signal intensity of fat on all sequences, most consistent with a medullary infarct extending from the lateral femoral trochlea to the posterior nonweightbearing aspect of the lateral femoral condyle. No collapse of the articular surface of the lateral femoral condyle or definite findings to suggest osteonecrosis or osseous stress response. No additional medullary infarcts within the regions imaged. Potential hematopoietic marrow conversion within the visualized femoral and tibial diaphyses. JOINT SPACE: Small joint effusion. No ??intra-articular bodies. No ??Gan's cyst. MEDIAL COMPARTMENT: Medial meniscus: Normal in morphology and signal. Medial compartment cartilage: No focal cartilage defects. LATERAL COMPARTMENT: Lateral meniscus: Normal in morphology and signal. Lateral compartment cartilage: No focal cartilage defects. CRUCIATE LIGAMENTS: Anterior cruciate ligament (ACL): Intact. Posterior cruciate ligament (PCL): Intact. COLLATERAL LIGAMENTS AND POSTEROLATERAL CORNER: Medial collateral ligament (MCL): Intact. Lateral collateral ligament (LCL) complex: Intact. Posterolateral corner structures: Intact. PATELLOFEMORAL COMPARTMENT: Patellofemoral compartment cartilage: Heterogeneity of the cartilage across the patellofemoral compartment with a focus of high-grade partial thickness cartilage fissuring at the junction of the medial patellar facet and median patellar ridge. Foci of high-grade partial thickness cartilage fissuring along the lateral patellar facet. Focus of heterogeneity of the cartilage of along the inferior medial femoral trochlea without a focal cartilage defect across the femoral trochlea. Patellofemoral tracking: There is mild edema in superolateral Hoffa's fat pad. No ??lateral patella tilt. No ??lateral patella translation. No ??patella diana. Normal patellar and trochlear morphology. Normal tibial tubercle-trochlear groove (TT-TG) distance of 12 mm. EXTENSOR MECHANISM: Distal quadriceps tendon: Mild insertional tendinosis without tear. Patella tendon: No tendinosis or tear. Medial patellofemoral ligament (MPFL) and patellar retinacula: Intact. SOFT TISSUES: Mild nonspecific edema of the prepatellar superficial soft tissues. No soft tissue mass. Normal neurovascular bundle. Procedure Note Demetria Hall MD - 11/16/2021 [facility] MRI KNEE W WO CONTRAST RIGHT ([id number]) Patient demographics: 41 year-old female INDICATION: Right knee pain anteriorly near the patellar apex; possiblecyst on recent radiographs COMPARISON: Right knee radiographs on 10/21/2021 TECHNIQUE: A contrast-enhanced MRI of the right knee was performed. FINDINGS: OSSEOUS STRUCTURES: Alignment is anatomic. No acute fracture or osseous contusion. Thebackground marrow signal is within normal limits. Within the lateral femoralcondyle, there is a heterogeneous oval lesion with a markedly hypointense rim consistent with sclerosis with internal intrinsic T1 hyperintense signalwhich follows the signal intensity of fat on all sequences, most consistentwith a medullary infarct extending from the lateral femoral trochlea to theposterior nonweightbearing aspect of the lateral femoral condyle. No collapse ofthe articular surface of the lateral femoral condyle or definite findings to suggest osteonecrosis or osseous stress response. No additional medullary infarcts within the regions imaged. Potential hematopoietic marrowconversion within the visualized femoral and tibial diaphyses. JOINT SPACE: Small joint effusion. No intra-articular bodies. No Gan's cyst. MEDIAL COMPARTMENT: Medial meniscus: Normal in morphology and signal. Medial compartment cartilage: No focal cartilage defects. LATERAL COMPARTMENT: Lateral meniscus: Normal in morphology and signal. Lateral compartment cartilage: No focal cartilage defects. CRUCIATE LIGAMENTS: Anterior cruciate ligament (ACL): Intact. Posterior cruciate ligament (PCL): Intact. COLLATERAL LIGAMENTS AND POSTEROLATERAL CORNER: Medial collateral ligament (MCL): Intact. Lateral collateral ligament (LCL) complex: Intact. Posterolateral corner structures: Intact. PATELLOFEMORAL COMPARTMENT: Patellofemoral compartment cartilage: Heterogeneity of the cartilageacross the patellofemoral compartment with a focus of high-grade partialthickness cartilage fissuring at the junction of the medial patellar facet andmedian patellar ridge. Foci of high-grade partial thickness cartilage fissuringalong the lateral patellar facet. Focus of heterogeneity of the cartilage ofalong the inferior medial femoral trochlea without a focal cartilage defectacross the femoral trochlea. Patellofemoral tracking: There is mild edema in superolateral Hoffa's fatpad. No lateral patella tilt. No lateral patella translation. No patellaalta. Normal patellar and trochlear morphology. Normal tibial tubercle-trochlear groove (TT-TG) distance of 12 mm. EXTENSOR MECHANISM: Distal quadriceps tendon: Mild insertional tendinosis without tear. Patella tendon: No tendinosis or tear. Medial patellofemoral ligament (MPFL) and patellar retinacula: Intact. SOFT TISSUES: Mild nonspecific edema of the prepatellar superficial soft tissues. Nosoft tissue mass. Normal neurovascular bundle. IMPRESSION IMPRESSION: 1. Mild insertional quadriceps tendinosis without tear. 2. Findings suggestive of lateral patellofemoral maltracking/fat pad impingement with patellofemoral compartment chondrosis. 3. 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 4. Hematopoietic marrow reconversion within the femoral and tibialdiaphyses. 5. No suspicious osseous lesions. Electronically Signed By: Ruy Hall 11/16/2021 2:30 PM CDT Salvatore Nate [facility] RAD MR documented in this encounter Visit Diagnoses Diagnosis Acute internal derangement of right knee- Primary Acute internal derangement of right knee documented in this encounter Care Teams Forming Process Line Worker Relationship Specialty Start Date End Date Mariano Velazco [address] [place] [address] PCP - General Family Practice 07/24/21 documented as of this encounter
--- OUTSIDE RECORDS SUMMARY | 2023-06-19 21:21 | XMS_ITS | Clinical Summary ---
Author Name Unknown Organization [facility] Address [address] [place] [address] Phone Care Team Providers Care Marketing Operations Coordinator Name Role Phone Mariano Velazco Primary Care Provider [phone] Source Comments This disclosure is being made pursuant to the Care Everywhere program,applicable federal and state laws, and may not contain all informationavailable regarding this patient.[facility] Pract[facility] Allergies Active Allergy Reactions Criticality Noted [...] 11/17/2021 8:32 AM CDT Plan of Treatment Health Maintenance Due Date Last Done Comments [id number] Vaccine (#1) 1982 Varicella Vaccine (1 of 2 - 2-dose childhood series) 1983 Annual Physical Visit 1985 HIV Harrison Screening 1997 HCV Screening 01/30/2000 Hepatitis A Vaccine (1 of 2 - Risk 2-dose series) 2001 Cervical Cancer Screening 2003 Lipid Disorder Screening 2003 Pneumococcal Vaccine (2 of 2 - PCV) 01/22/2014 01/22/2013 Mammogram 2022 Influenza Vaccine: Seasonal (#1) 01/10/2023 03/26/2020, 03/26/2019, 02/20/2018, Additional history exists Tetanus Diphtheria Pertussis (4 - Td or Tdap) 01/17/2024 01/16/2014, 11/13/2013, 06/04/2012, Additional history exists Prediabetes and Type 2 Diabe tim Screening 05/26/2024 05/26/2021 Hepatitis B Vaccine Completed 01/30/2013, 08/03/2012, 06/04/2012 Care Teams Marketing Operations Coordinator Relationship Specialty Start Date End Date Mariano Velazco [address] [facility] [place] [address] PCP - General Family Practice 07/24/21
--- OUTSIDE RECORDS SUMMARY | 2023-06-19 21:22 | XMS_ITS | Encounter Summary ---
Author Name Unknown Organization [facility] Address [address] [place] [address] Care Team Providers Care Nautical Instrument Mechanic Name Role Phone Lesley Valencia M.D. Primary Care Provider [phone] Reason for Visit * Reason Onset Date Comments Medical Information 02/21/2023 Encounter Details Date Type Department Care Team (Late st Contact Info) Description 02/21/2023 Nurse Triage Department of Family Medicine, [facility], in [place], [place] [address] [place] [phone] Charisse Tong, R.N. [address] [place] [phone] Medical Information Social History Tobacco Use Types Packs/Day Years Used Date Smoking Tobacco: Heavy Smoker Cigarettes 1.5 Smokeless Tobacco: Never Alcohol Use Standard Drinks/Week Comments No 0 (1 standard drink = 0.6 oz pure alcohol) diagnossed with alcohol abuse in 2007 Nutrition Answer Date Recorded Nutrition: EVOO Fat Source Unknown 08/11 Nutrition: Servings of Fruits/Vegetables per Day Not on file 08/11/2020 Dental Answer Date Recorded Dental: Regular Dentist Unknown 08/12/19 21 Sex and Gender Information Value Date Recorded Sex Assigned at Female 03/29/2023 10:01 AM CDT Gender Identity Female 03/29/2023 10:01 AM CDT Sexual Orientation Lesbian or Gill 03/29/2023 10 :01 AM CDT documented as of this encounter Miscellaneous Notes * Telephone Encounter - Charisse Tong, R.N. - 02/21/2023 7:03 AM CDT Chief Complaint / Reason for Call Patient is a 43 y.o. female calling regarding Medical Information. Assessment Concern: Patient is scheduled to have a pelvic ultrasound today prior to her appointment in Gynecology for follow up of pelvic pain she has been having. Patient states she had a pelvic ultrasound completed at [facility] and calls wondering if that has been accepted by her Gynecology provider. When looking at patients scheduled appointments she does not have an ultrasound scheduled for this morning. Her only appointment this morning is a follow up with David Robertson APRN, ARTIFICIAL LEATHER CALENDER OPERATOR. Patient states if the ultrasound appointment is not scheduled for this morning they must have received her ultrasound from [facility]. Patient states that answered he question and she will arrive for her appointment this morningas scheduled. Patient was appreciative. The recommended disposition is Other. documented in this encounter Plan of Treatment Upcoming Encounters Date Type Department Care Team (Latest Contact Info) Description 07/18/2023 8:30 AM ICHTHYOLOGY TEACHER Procedure visit Department of Obstetrics and Gynecology in [place], [place] [address] [place] [address] Negrita Robertson APRN, C.N.P. [address] [phone] Discharge Disposition: Home or Self Care documented as of this encounter Visit Diagnoses Not on filedocumented in this encounter Care Teams Nautical Instrument Mechanic Relationship Specialty Start Date End Date Lesley Valencia M.D. [address] [place] [address] PCP - General Family Medicine 03/17/22 documented as of this encounter
--- OUTSIDE RECORDS SUMMARY | 2023-06-19 21:22 | XMS_ITS | Encounter Summary ---
Author Name Unknown Organization [facility] Address [address] [place] [address] Care Team Providers Care Implant Polisher Name Role Phone Lesley Valencia M.D. Primary Care Provider Encounter Details Date Type Department Care Team (Late st Contact Info) Description 02/23/2023 Clinical Communication Department of Obstetrics and Gynecology in [place], [place] [address] [address] Negrita Robertson, KIRSTEN, C.N.P. [address], [place] [address] Social History Tobacco Use Types [...] encounter Miscellaneous Notes * Telephone Encounter - Flower Brown, Chay.S.N., R.N. - 02/23/2023 10:06 AM CDT Pt contacted with recommendations: Yes, let us go ahead and have her collect a UA and UC. I will place the order. Will plan to contact her with the results when we receive them. She was encouraged to return to the ED if her pain is severe and not improved with conservative measures, Tylenol or Ibuprofen. She was scheduled for lab today. * Telephone Encounter - Flower Brown M.S.N., Santi. - 02/23/2023 7:56 AM CDT SUBJECTIVE CHIEF COMPLAINT / REASON FOR CALL Pelvic pain. ASSESSMENT Pt was last evaluated in clinic on 02/21/23. She states that her umbilicus issue has resolved that she spoke to provider about. The pelvic pain had also resolved at that time. Last evening approximately 2099, she states the pain had returned near her right ovary. She has been up since 2100 since last evening due to the pain. She is using pain patches, hot baths, heating pads, Tylenol and Ibuprofen without any improvement in symptoms. Pain is constant. Rates 8 on a 0-10 scale. Describes as sharp, throbbing. It is much like the pain she has experienced in the past. Denies fevers, vomiting, back pain, urinary symptoms or vaginal bleeding. She is nauseated and has experienced occasional chills (but later states it is because of the cooler temperatures). She states she has diarrhea--this is her normal as she is on metformin. She has no history of abdominal surgeries. PLAN Disposition/Recommendation: notified provider and awaiting recommendations. Recommended if pain is severe or worsening or accompanied by fever to be evaluated in the E.D. to determine source of pain. Patient declines clinic visit. Encouraged Tylenol or Ibuprofen as directed. Information/Education: patient/caller able to teach back. Caller agreeable to plan of care: yes. The following references were used: nursing clinical judgement Per Telephone for Triage Obstetrics and Gynecology by Sloane Holman and Johanna Mac third edition. . documented in this encounter Plan of Treatment Upcoming Encounters Date Type Department Care Team (Latest Contact Info) Description 07/18/2023 8:30 AM SCRATCH POLISHER Procedure visit Department of Obstetrics and Gynecology in [place], [place] [address] [place] [phone] Negrita Robertson APRN, C.N.P. [address] [place] [phone] Discharge Disposition: Home or Self Care documented as of this encounter Visit Diagnoses Diagnosis Pain Pelvic Female- Primary documented in this encounter Care Teams Implant Polisher Relationship Specialty Start Date End Date Lesley Valencia M.D. [address] [place] [address] PCP - General Family Medicine 03/17/22 documented as of this encounter
--- OUTSIDE RECORDS SUMMARY | 2023-06-19 21:22 | XMS_ITS | Encounter Summary ---
Author Name Unknown Organization [facility] Address [address] [place] [address] Care Team Providers Care Tutor Coordinator Name Role Phone Lesley Valencia M.D. Primary Care Provider [phone] Reason for Visit * Reason Comments Follow-up * Outpatient (Routine) - Closed Specialty Diagnoses / Procedures Referred By Contac t Referred To Contact Obstetrics and Gynecology Diagnoses Pain Pelvic Female Constipation Negrita Robertson APRN, C.N.P. [address] [place] [address] [facility] Region Referral ID Status Reason Start Date Expiration Date Visits Re quested Visits Authorized [id number] Closed 02/10/2023 02/09/2026 1 1 Encounter Details Date Type Department Care Team (Late st Contact Info) Description 02/21/2023 9:00 AM CDT Office Visit Department of Obstetrics and Gynecology in [address] [phone] Negrita Robertson APRN, C.N.P. [address] [place] [address] Pain Pelvic Female; Constipation Discharge Disposition: Home or Self Care Social History Tobacco Use Types Packs/Day Years [...] AM CDT documented as of this encounter Last Filed Vital Signs Vital Sign Reading Time Taken Comments Blood Pressure 96/66 02/21/2023 8:52 AM CDT Pulse - - Temperature - - Respiratory Rate - - Oxygen Saturation - - Inhaled Oxygen Concentration - - Weight 99.6 kg (219 lb 9.3 oz) 02/21/2023 8:52 A M CDT Height - - Body Mass Index 39.15 02/17/2022 1:04 PM CDT documented in this encounter Progress Notes * Negrita Robertson, KIRSTEN, C.N.P. - 02/21/2023 9:00 AM CDT SUBJECTIVE Chief Complaint Patient presents with Follow-up HISTORY OF PRESENT ILLNESS Saba is a 43 y.o. . No LMP recorded. (Menstrual status: Amenorrhea with hormonal injection). She presents with concerns surrounding Follow-up. She completed her pelvic ultrasound 02/16/2023for evaluation of pelvic pain. Results came back completely normal. She notes that since we last chatted, her pelvic pain symptoms have completely resolved. She actually presented to the emergency department on 02/19/2023 with COPD exacerbation. She notes that she has smoked cigarettes and we would for about 23 years now. She has decided that she needs to stop smoking. She has ordered nicotine patches and lozenges through the [place] quit plan. She feels very motivated to quit smoking at this point in time. REVIEW OF SYSTEMS Respiratory: Positive for dry cough. The following systems were negative: Constitutional, Skin, Eyes, ENT, Cardiovascular, Gastrointestinal, Genitourinary, Hematologic, Musculoskeletal, Neurological, Psychiatric The patient's allergies, current medications, problem list, social history and family history were reviewed and updated as appropriate. OBJECTIVE BP 96/66 Wt 99.6 kg BMI 39.15 kg/m?? PREVENTATIVE HEALTH Last Pap Result Date: 03/14/2022 PHYSICAL EXAM General: She is a well-appearing female, in no acute distress. ASSESSMENT / PLAN #1 Pain Pelvic Female Overview: Abdominal and pelvic CT scan on 01/22/2023 was normal. She was diagnosed with constipation and treated with laxatives. Pelvic ultrasound results on 02/16/2023 came back completely normal. She notes that at this point her pain has completely resolved. She will continue to monitor symptoms and contact me if pelvic pain symptoms returned. #2 Constipation Overview: Diagnosed with severe constipation after emergency room visit periods started on laxatives daily for 2 weeks. Colonoscopy was scheduled for Monday, but patient canceled and will reschedule. Recommendagainst long-term laxative use common encouraged her to initiate MiraLax one capsule 1-2 times per day for management of her constipation. Laxatives can be saved for rescue. This was a likely cause of her right-sided pelvic pain. Other orders - Obstetrics and Gynecology office visit (clinic) All questions have been answered and those present are in agreement with this plan. Negrita Robertson APRN, C.N.P. Patient Education Ready to learn, no apparent learning barriers were identified; learning preferences include listening. Explained diagnosis and treatment plan; patient expressed understanding of the content. 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 [address], [place] [phone] Discharge Disposition: Home or Self Care documented as of this encounter Visit Diagnoses Diagnosis Pain Pelvic Female Constipation documented in this encounter Care Teams Tutor Coordinator Relationship Specialty Start Date End Date Lesley Valencia M.D. [address] [place] [phone] PCP - General Family Medicine 03/17/22 documented as of this encounter
--- OUTSIDE RECORDS SUMMARY | 2023-06-19 21:22 | XMS_ITS | Encounter Summary ---
Author Name Unknown Organization [facility] Address [address] [place] [address] Care Team Providers Care Trimming Caser Name Role Phone Lesley Valencia M.D. Primary Care Provider Encounter Details Date Type Department Care Team (Late Contact Info) Description 02/14/2023 Orders Only Department of Obstetrics and Gynecology in [place], [place] [address] [place] [phone] Negrita Robertson, GENERAL LOT ATTENDANT, C.N.P. [address] [place] [phone] Dysuria (Primary Dx) Social History Tobacco Use Types Packs/Day Years [...] (Latest Contact Info) Description 07/18/2023 8:30 AM TAKER OFF DRYING KILN Procedure visit Department of Obstetrics and Gynecology in [place], [place] [address] [place] [phone] Negrita Robertson, KIRSTEN, C.N.P. [address] [place] [phone] Discharge Disposition: Home or Self Care documented as of this encounter Visit Diagnoses Diagnosis Dysuria- Primary documented in this encounter Care Teams Trimming Caser Relationship Specialty Start Date End Date Lesley Valencia M.D. [address] [facility] [place] [phone] PCP - General Family Medicine 03/17/22 documented as of this encounter
--- OUTSIDE RECORDS SUMMARY | 2023-06-19 21:22 | XMS_ITS | Encounter Summary ---
Author Name Unknown Organization [facility] Address [address] [place] [address] Care Team Providers Care Laborer Gold Leaf Name Role Phone Lesley Valencia M.D. Primary Care Provider Encounter Details Date Type Department Care Team ( Contact Info) Description 02/21/2023 Clinical Communication Department of Family Medicine, [facility], in [place], [place] [address] [place] [phone] Lesley Valencia M.D. 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 [address] [place] [phone] Discharge Disposition: Home or Self Care documented as of this encounter Visit Diagnoses Not on filedocumented in this encounter Care Teams Laborer Gold Leaf Relationship Specialty Start Date End Date Lesley Valencia M.D. [address] [facility] [place] [phone] PCP - General Family Medicine 03/17/22 documented as of this encounter
--- OUTSIDE RECORDS SUMMARY | 2023-06-19 21:22 | XMS_ITS | Encounter Summary ---
Author Name Unknown Organization [facility] Address [address] [place] [address] Care Team Providers Care Gum Mixer Name Role Phone Lesley Valencia M.D. Primary Care Provider [phone] Reason for Visit * Reason Comments Post-op Problem Encounter Details Date Type Department Care Team (Late st Contact Info) Description 11/06/2022 11:55 AM CDT - 11/06/2022 12:38 PM CDT Emergency [facility] [address] [place] [phone] Pain Elbow Left (Primary Dx) Discharge Disposition: Home or Self Care Social [...] AM CDT documented as of this encounter Medications at Time of Discharge Medication Sig Dispensed Refills Start Date End Date acetaminophen (TYLENOL) 500 mg tablet Take 2 tablets by mouth every 6 (six) hours as needed. 0 01/17/2014 albuterol (ACCUNEB) 2.5 mg /3 mL nebulizer solution Inhale 1 vial. 0 atorvastatin (LIPITOR) 10 mg tablet Take 1 tablet by mouth at bedtime. 0 01/28/2016 blood sugar diagnostic strips (Blood Glucose Test Strips) Test 1 times per day. 0 07/27/2022 cetirizine (ZyrTEC) 10 mg tablet 0 03/09/2022 cholecalciferol (VITAMIN D3) 1,000 Unit capsule Take 1,000 Units by mouth. 0 07/18/2017 cyanocobalamin (VITAMIN B12) 1,000 mcg tablet Take 1 tablet by mouth. 0 dextroamphetamine-amphe tamine (ADDERALL) 20 mg tablet Take 20 mg by mouth. 0 04/10/2022 dicyclomine (BENTYL) 20 mg tablet Take by mouth. 0 08/30/2022 esomeprazole (NexIUM) [address] capsule TAKE 1 CAPSULE BY ORAL ROUTE EVERY DAY 0 01/27/2022 fluticasone (FLONASE) 50 mcg/actuation nasal spray Inhale 2 (two) times a day. 0 01/28/2016 ibuprofen (ADVIL,MOTRIN) 600 mg tablet Take 1 tablet by mouth. 0 01/28/2016 ipratropium-albuteroL (COMBIVENT RESPIMAT) 20-100 mcg/actuation inhaler Inhale 1 puff 4 (four) times a day. 0 08/30/2022 ipratropium-albuterol (DUO-NEB) 0.5-2.5 mg/3 mL nebulizer solution Inhale 3 mL. 0 03/18/2018 lansoprazole (PREVACID) [address] capsule Take 30 mg by mouth. 0 LYRICA 150 mg capsule Take 150 mg by mouth 3 (three) times a day. 0 06/01/2018 melatonin 5 mg tablet Take 10 mg by mouth. 0 06/08/2018 multivitamin chewable tablet Chew. 0 nicotine (NICODERM CQ) 14 mg/[address] 1 patch on the skin. 0 12/27/2016 nicotine (NICODERM CQ) 21 mg/[address] 1 patch on the skin. 0 nicotine (NICODERM CQ) 7 mg/[address] 1 patch on the skin. 0 12/27/2016 nicotine (NICOTROL NS) 10 mg/mL nasal spray Administer 1 spray into affected nostril(s). 0 nicotine (NICOTROL) 10 mg inhaler Inhale 10 mg. 0 03/20/2017 ondansetron ODT (ZOFRAN-ODT) [address] 1 TABLET ON THE TONGUE EVERY 8 HOURS IF NEEDED FOR NAUSEA VOMITING 2 05/01/2018 SUMAtriptan (IMITREX) 100 mg tablet TAKE 1 TABLET (100 MG) BY MOUTH EVERY 2 HOURS IF NEEDED FOR MIGRAINE. GIVE AT MINIMUM 2HRS APART. MAX DOSE: 200MG PER 24HRS. 0 02/15/2022 tiZANidine (ZANAFLEX) 4 mg tablet Take 4 mg by mouth. 0 07/02/2021 traZODone (DESYREL) 100 mg tablet 0 05/31/2018 albuterol 0.63 mg/3 mL nebulizer solution Take 3 mL by nebulization 3 (three) times a day. 0 01/28/2016 03/30/2023 amoxicillin (AMOXIL) 500 mg capsule 0 02/16/2022 03/30/[address] tablet TAKE 1 TABLET BY MOUTH ONCE DAILY WITH A MEAL 3 05/02/2018 03/30/2023 calcium carbonate 1,500 mg (600 mg calcium) tablet Take 600 mg by mouth. 0 06/08/2018 03/30/2023 dextroamphetamine-amphe tamine (ADDERALL) 10 mg tablet Take by mouth. 0 08/12/2021 03/30/2023 FERROUS SULFATE ORAL Take 1 tablet by mouth. 0 03/30/2023 FIBER-LAX 625 mg tablet Take 625 mg by mouth daily. 99 05/02/2018 03/30/2023 fluocinonide (LIDEX) 0.05 % cream Apply topically. 0 03/30/2023 HYDROcodone-acetaminoph en (NORCO) 5-325 mg per tabletIndications:Acute Pain Take 1-2 tablets by mouth every 4 (four) hours as needed for pain Indication: Acute Pain. 20 tablet 0 03/17/2022 02/15/2023 hydrOXYzine (VISTARIL) 50 mg capsule TAKE 2 CAPSULES EVERY 6 HOURS NEEDED FOR ANXIETY 0 03/22/2022 03/30/2023 methylPREDNISolone (MEDROL DOSEPAK) 4 mg tablet TAKE BY MOUTH INSTRUCTED PER PACKAGING. 0 04/04/2022 03/30/2023 naproxen sodium (ALEVE/ANAPROX) 550 mg tabletIndications:Pelvi c And Perineal Pain Take 1 tablet (550 mg total) by mouth 2 (two) times a day as needed for pain. Take with food 20 tablet 1 03/28/2022 03/30/2023 PARoxetine (PAXIL) 20 mg tablet 30mg daily 0 02/10/2022 03/30/2023 potassium chloride (KLOR-CON M) 10 mEq ER tablet TAKE 1 TABLET (10 MEQ) BY MOUTH IN THE MORNING AND 1 TABLET (10 MEQ) IN THE EVENING. TAKE WITH MEALS. 0 01/05/2022 03/30/2023 sennosides-docusate sodium (SENOKOT-S) 8.6-50 mg per tablet Take 1 tablet by mouth. 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 [address] [phone] Discharge Disposition: Home or Self Care documented as of this encounter Visit Diagnoses Diagnosis Pain Elbow Left- Primary documented in this encounter Care Teams Gum Mixer Relationship Specialty Start Date End Date Lesley aVlencia M.D. [address] [place] [phone] PCP - General Family Medicine 03/17/22 documented as of this encounter
--- OUTSIDE RECORDS SUMMARY | 2023-06-19 21:22 | XMS_ITS | Encounter Summary ---
Author Name Unknown Organization [facility] Address [address] [place] [address] Care Team Providers Care Communication Lecturer Name Role Phone Lesley Valencia M.D. Primary Care Provider Encounter Details Date Type Department Care Team (Late st Contact Info) Description 02/16/2023 Clinical Communication Department of Obstetrics and Gynecology in [place], [place] [address] [phone] Doris Virk APRN, C.N.P. [address], [place] [phone] Social History Tobacco Use Types [...] Encounter - Maria D Church R.N. - 02/16/2023 1:39 PM CDT PLAN The following information was provided: Doris's message. [facility] has availability for pelvic ultrasound this afternoon and patient will present for there. Information/Education: patient/caller able to teach back The following references were used: provider Doris Virk * Addendum Note - Doris Virk APRN, C.N.P. - 02/16/2023 1:05 PM CDT Addended by: DORIS VIRK on: 02/16/2023 01:05 PM Modules accepted: Orders * Telephone Encounter - Maria D Church R.N. - 02/16/2023 12:02 PM CDT ASSESSMENT Last appointment with you on 02/10/23 for pelvic pain. States she spoke with you yesterday on phone. Has US 02/21/23. No earlier availability in and is not able to come to [place] d/t transportation. Requesting refill of [place] until US. She was not able to sleep last night d/t pain. Last refill yesterday-states she only has 4 left. She is doing Ibuprofen 800 mg every 8 hours. Has tried heat and warm baths. PLAN Disposition/Recommendation: notified provider and awaiting recommendations. Information/Education: patient/caller able to teach back. Caller agreeable to plan of care: yes. The following references were used: nursing clinical judgement. documented in this encounter Plan of Treatment Upcoming Encounters Date Type Department Care Team (Latest Contact Info) Description 07/18/2023 8:30 AM STUNT DOUBLE Procedure visit Department of Obstetrics and Gynecology in [place], [place] [address] [place] [phone] Doris Virk APRN, C.N.P. [address] [place] [phone] Discharge Disposition: Home or Self Care documented as of this encounter Visit Diagnoses Diagnosis Pelvic And Perineal Pain documented in this encounter Care Teams Communication Lecturer Relationship Specialty Start Date End Date Lesley Valencia M.D. [address] [place] [phone] PCP - General Family Medicine 03/17/22 documented as of this encounter
--- OUTSIDE RECORDS SUMMARY | 2023-06-19 21:22 | XMS_ITS | Encounter Summary ---
Author Name Unknown Organization [facility] Address [address] [place] [address] Care Team Providers Care House Nurse Name Role Phone Lesley Valencia M.D. Primary Care Provider [phone] Reason for Referral * Outpatient (Routine) - Authorized Specialty Diagnoses / Procedures Referred By Contac t Referred To Contact Diagnoses Management Contraception By Injection Menorrhagia Procedures Injection Visit - Depo-Provera Negrita Robertson APRN, C.N.P. [address] [place] [address] [facility] Region Referral ID Status Reason Start Date Expiration Date V isits Requested Visits Authorized [id number] Authorized 02/10/2023 02/10/2024 4 4 * Outpatient (Routine) - Closed Specialty Diagnoses / Procedures Referred By Contac t Referred To Contact Obstetrics and Gynecology Diagnoses Pain Pelvic Female Constipation Negrita Robertson APRN, C.N.P. [address], [place] [address] [facility] Region Referral ID Status Reason Start Date Expiration Date Visits Re quested Visits Authorized [id number] Closed 02/10/2023 02/09/2026 1 1 Scheduling Instructions 30 min f/u pelvic pain after US Reason for Visit * Reason Comments Contraception Discuss options * Appointment Request (Routine) - Closed Specialty Diagnoses / Procedures Referred By Harman lira Referred To Contact Obstetrics and Gynecology Referral ID Status Reason Start Date Expiration Date Visits Re quested Visits Authorized [id number] Closed 11/25/2022 11/25/2023 1 1 Encounter Details Date Type Department Care Team (Latest Contact Info) Description 02/10/2023 8:30 AM CDT Office Visit Department of Obstetrics and Gynecology in [place], [place] [address] [place] [phone] Negrita Robertson, TRAIN DIRECTOR, C.N.P. [address] [phone] Pain Pelvic Female (Primary Dx); Constipation; Frequency Urinary; Management Contraception By Injection; Menorrhagia Discharge Disposition: Home or Self Care Social [...] Sign Reading Time Taken Comments Blood Pressure 110/66 02/10/2023 8:35 AM CDT Pulse - - Temperature - - Respiratory Rate - - Oxygen Saturation - - Inhaled Oxygen Concentration - - Weight 96 kg (211 lb 10.3 oz) 02/10/2023 8:35 AM CDT Height - - Body Mass Index 37.74 02/17/2022 1:04 PM CDT documented in this encounter Progress Notes * Negrita Robertson APRN, C.NDaniela. - 02/10/2023 8:30 AM CDT SUBJECTIVE Chief Complaint Patient presents with Contraception Discuss options HISTORY OF PRESENT ILLNESS Saba is a 43 y.o. . No LMP recorded. (Menstrual status: Amenorrhea with hormonal injection). She presents with concerns surrounding Contraception (Discuss options ). She has been utilizing Depo-Provera for management of her menorrhagia since March,. She is very pleased as she experiences amenorrhea. She also notes that she is having difficulty with weight loss. She is wondering if a different control would be more beneficial in assisting her with weight loss. She would bemost interested in a control, such as Nexplanon. We reviewed the risks, benefits and side effects with Nexplanon, and the fact that Nexplanon can also cause weight gain, and there is a chance she would get periods with Nexplanon. She is decided to stick with Depo-Provera for now. She also has concerns surrounding right-sided pelvic pain that sometimes shoots to the left side. She has been having this pain for about 3 weeks now. She was seen in the emergency department on 01/22/2023 for this pain and underwent CT scan with normal findings. She was told she had constipation and instructed to utilize laxatives every day for 2 weeks. She also was scheduled for colonoscopy this past Monday, but missed the appointment and needs to reschedule. She feels as if her laxatives areless effective and even with the laxatives she is feeling constipation. She was encouraged to add MiraLax. She also admits to concerns surrounding urinary frequency. She does consume about 50 oz of water and 40 oz of mountain dew every day. She has no burning with urination or blood in her urine. She would like to be tested for urinary tract infection. Two weeks ago she did have a normal UA. REVIEW OF SYSTEMS Gastrointestinal: Positive for abdominal (belly) pain or cramping and constipation. Genitourinary: Positive for frequent urination. The following systems were negative: Constitutional, Skin, Eyes, ENT, Respiratory, Cardiovascular, Hematologic, Musculoskeletal, Neurological, Psychiatric The patient's allergies, current medications, problem list, social history and family history were reviewed and updated as appropriate. OBJECTIVE BP 110/66 Wt 96 kg BMI 37.74 kg/m?? PREVENTATIVE HEALTH Last Pap Result Date: 03/14/2022 NILM/-HPV. Due 2026. No history of abnormal. PHYSICAL EXAM General: She is a well-appearing female, in no acute distress. ASSESSMENT / PLAN #1 Pain Pelvic Female Overview: Abdominal and pelvic CT scan on 01/22/2023 was normal. She was diagnosed with constipation and treated with laxatives. Pain has not significantly improved. Will proceed with pelvic ultrasound to ruleout ovarian or uterine cause of her pain. Will obtain UA UC to rule out bladder infection, as she does note urinary frequency. She plans to get her portal set up and I will plan to send a portal message with results. I will plan to see her back in clinic following her ultrasound to discuss the results and recommendations going forward, and if she is agreeable, will proceed with physical exam at that time. Orders: - Bacterial Culture, Aerobic + Susceptibility, Urine - Urinalysis with Microscopic: Urine, Midstream - US Pelvis Transvaginal; Future; Expected date: 02/10/2023 #2 Constipation Overview: Diagnosed with severe constipation after emergency room visit periods started on laxatives daily for 2 weeks. Colonoscopy was scheduled for Monday, but patient canceled and will reschedule. Recommendagainst long-term laxative use common encouraged her to initiate MiraLax one capsule 1-2 times per day for management of her constipation. Laxatives can be saved for rescue. This is a likely cause ofher right-sided pelvic pain. #3 Frequency Urinary Overview: She does drink 40 oz of mountain dew and 50 oz of water per day. UA UC obtained and pending. I willplan to send her a portal message with results and we will treat accordingly. If negative, we can discuss behavioral management and medication options for management of OAB. #4 Management Contraception By Injection Overview: Utilizing Depo-Provera successfully for management of her menorrhagia since 04/01/2022. #5 Menorrhagia Overview: Managing effectively with Depo-Provera since 04/01/2022. Other orders - Obstetrics and Gynecology office visit (clinic); Future; Expected date: After tests - medroxyPROGESTERone injection 150 mg; 150 mg, intramuscular, Every 3 months, First dose on Mon02/10/23 at 0915, For 4 doses - medroxyPROGESTERone (DEPO-PROVERA) 150 mg/mL injection; Inject 1 mL (150 mg total) intramuscularly every 3 (three) months., Starting Mon02/10/2023, Until Mon02/10/2024, No Print - Injection Visit - Depo-Provera; Standing All questions have been answered and those [...] (Latest Contact Info) Description 07/18/2023 8:30 AM TRADE CLERK Procedure visit Department of Obstetrics and Gynecology in [address] [phone] Negrita Robertson APRN, C.N.P. [address] [phone] Discharge Disposition: Home or Self Care Scheduled Orders Name Type Priority Associated Diagnoses Orde r Schedule Injection Visit - Depo-Provera OB Routine Management Contraception By Injection Menorrhagia every 3 months for 4 Occurrences starting 02/10/2023 until 05/12/2024 Scheduled Referrals Name Type Priority Associated Diagnoses Order Schedule Obstetrics and Gynecology office visit (clinic) Outpatient Referral Routine Pain Pelvic Female Constipation 1 Occurrences starting 02/10/2023 until 05/12/2024 documented as of this encounter Procedures Procedure Name Priority Date/Time Associated Diagnosis Comments URINALYSIS, DIPSTICK Routine 02/10/2023 8:59 AM CDT NV URINALYSIS AUTO W MICRO Routine 02/10/2023 8:59 AM CDT BACTERIAL CULTURE, AEROBIC + SUSC, URINE Routine 02/10/2023 8:59 AM CDT Pain Pelvic Female URINALYSIS WITH MICROSCOPIC Routine 02/10/2023 8:59 AM CDT Pain Pelvic Female documented in this encounter Results * (ABNORMAL) Microscopic Automated (02/10/2023 8:59 AM CDT) White Blood Cells Occ-3 /hpf 02/10/2023 1:56 PM CDT OWAT Comment: ----REFERENCE VALUE---- Males: 0-3 Females: 0-10 Unknown: 0-10 Red Blood Cells None Seen 0 - 2 /hpf 02/10/2023 1:56 PM CDT OWAT Crystals Calcium Oxalate(A) None Seen /lpf 02/10/2023 1:56 PM CDT OWAT Squamous Cells Occ-3 /hpf 02/10/2023 1:56 PM CDT OWAT Bacteria Present(A) None Seen 02/10/2023 1:56 PM CDT OWAT Urine 02/10/2023 8:59 AM CDT 02/10/2023 1:56 PM CDT Negrita Robertson APRN C.N.P. LAB URINE ORDERABLES [facility] [address] [place] [phone], [facility] OWAT [facility] in [place] [address] [place] [phone] * (ABNORMAL) Urinalysis, Dipstick (02/10/2023 8:59 AM CDT) Source Urine, Urine, Midstream 02/10/2023 10:49 AM CDT FB60 Comment:REVISED RESULTS Clarity Clear Clear 02/10/2023 10:58 AM CDT FB60 Color Yellow 02/10/2023 10:58 AM CDT FB60 Comment: ----REFERENCE VALUE---- Colorless Yellow Bessy Blood Negative Negative 02/10/2023 10:58 AM CDT FB60 Nitrite Negative Negative 02/10/2023 10:58 AM CDT FB60 Leukocyte Esterase Negative Negative 02/10/2023 10:58 AM CDT FB60 Protein 30(A) mg/dL 02/10/2023 10:58 AM CDT FB60 Comment: ----REFERENCE VALUE---- Negative Trace Glucose Negative Negative mg/dL 02/10/2023 10:58 AM CDT FB60 Ketones, QI(U) Negative Negative mg/dL 02/10/2023 10:58 AM CDT FB60 Bilirubin Negative Negative 02/10/2023 10:58 AM CDT FB60 pH 6.0 5.0 - 8.0 02/10/2023 10:58 AM CDT FB60 Specific [place] 1.025 1.001 - 1.035 02/10/2023 10:58 AM CDT FB60 Urobilinogen 0.2 0.2 - 1.0 mg/dL 02/10/2023 10:58 AM CDT FB60 Urine 02/10/2023 8:59 AM CDT 02/10/2023 10:49 AM CDT Negrita Robertson APRN, C.N.P. LAB URINE ORDERABLES Performing Organization Address City/State/[facility] Co de Phone Number [facility] [address] [place] [address], [facility] FB60 [facility] in [place] [address] [place] [address] * Urinalysis with Microscopic: Urine, Midstream (02/10/2023 8:59 AM CDT) Source Urine, Urine, Midstream 02/10/2023 10:52 AM CDT FB60 Comment:REVISED RESULTS White Blood Cells CANCELED 02/10/2023 10:52 AM CDT FB60 Comment:Result canceled by t he ancillary. Red Blood Cells CANCELED 10:52 AM CDT FB60 Comment:Result canceled by t he ancillary. Dysmorphic Red Blood Cells CANCELED 02/10/2023 10:52 AM CDT FB60 Comment:Result canceled by t he ancillary. Hyaline Casts CANCELED /lpf 02/10/2023 10:52 AM CDT FB60 Comment:Result canceled by t he ancillary. Epithelial Casts CANCELED /lpf 02/11/20 10:52 AM CDT FB60 Comment:Result canceled by t he ancillary. Leukocyte Casts CANCELED /lpf 10:52 AM CDT FB60 Comment:Result canceled by t he ancillary. Red Blood Cell Casts CANCELED /lpf 02/10/2023 10:52 AM CDT FB60 Comment:Result canceled by t he ancillary. Granular Casts CANCELED /lpf 02/10/2023 10:52 AM CDT FB60 Comment:Result canceled by t he ancillary. Broad Casts CANCELED /lpf 02/10/2023 10:52 AM CDT FB60 Comment:Result canceled by t he ancillary. Fatty Casts CANCELED /lpf 02/10/2023 10:52 AM CDT FB60 Comment:Result canceled by t he ancillary. Waxy Casts CANCELED /lpf 02/10/2023 10:52 AM CDT FB60 Comment:Result canceled by t he ancillary. Oval Fat Body Casts CANCELED /lpf 02/10/2023 10:52 AM CDT FB60 Comment:Result canceled by t he ancillary. Oval Fat Body CANCELED /hpf 02/10/2023 10:52 AM CDT FB60 Comment:Result canceled by t he ancillary. Crystals CANCELED /lpf 02/10/2023 10:52 AM CDT FB60 Comment:Result canceled by t he ancillary. Fat CANCELED /hpf 02/10/2023 10:52 AM CDT FB60 Comment:Result canceled by t he ancillary. Mucus CANCELED /hpf 02/10/2023 10:52 AM CDT FB60 Comment:Result canceled by t he ancillary. Squamous Cells CANCELED /hpf 02/10/2023 10:52 AM CDT FB60 Comment:Result canceled by t he ancillary. Transitional Cells CANCELED /hpf 02/10/2023 10:52 AM CDT FB60 Comment:Result canceled by t he ancillary. Renal Cells CANCELED /hpf 02/10/2023 10:52 AM CDT FB60 Comment:Result canceled by t he ancillary. Bacteria CANCELED 02/10/2023 10:52 AM CDT FB60 Comment:Result canceled by t he ancillary. Yeast CANCELED 02/10/2023 10:52 AM CDT FB60 Comment:Result canceled by t he ancillary. Trichomonas CANCELED 02/10/2023 10:52 AM CDT FB60 Comment:Result canceled by t he ancillary. Sperm CANCELED 02/10/2023 10:52 AM CDT FB60 Comment:Result canceled by t he ancillary. Urine (Urine, Midstream) 02/10/2023 8:59 AM CDT 02/10/2023 10:[address] [facility] - 02/10/2023 10:52 AM CDT Urinalysis w/ Microscopic was cancelled on 02/10/2023 at 10:52; Changed to a more appropriate test due to provided reason for referral. Negrita Robertson APRN, C.N.P. LAB URINE ORDERABLES Performing Organization Address City/[facility]/ZIP Co de Phone Number [facility] [address] [place] [address], [facility] FB60 [facility] [place] [address] [place] [address] * (ABNORMAL) Bacterial Culture, Aerobic + Susceptibility, Urine (02/10/2023 8:59 AM CDT) Urine Culture Mixed microbiota (A) 02/11/2023 1:[address] [facility] Urine (Urine, Midstream) 02/10/2023 8:59 AM CDT 02/10/2023 7:18 PM CDT Comment:Specimen Source Site : Urine Negrita Robertson APRN, C.N.P. LAB MICRO BIOLOGY - GENERAL ORDERABLES [facility] [address] [place] [address], [place] MKTO [facility] in [place] [address] [place] [address] documented in this encounter Visit Diagnoses Diagnosis Pain Pelvic Female- Primary Constipation Frequency Urinary Management Contraception By Injection Menorrhagia documented in this encounter Administered Medications Active Administered Medications - up to 3 most recent administrations Medication Order MAR Action Action Date Dose Rate Site medroxyPROGESTERone injection 150 mg 150 mg, intramuscular, Every 3 months, First dose on Mon02/10/23 at 0915, For 4 doses Given 05/02/2023 8:32 AM TRADE CLERK 150 mg Left Ventrogluteal Given 02/10/2023 9:00 AM CDT 150 mg Le ft Ventrogluteal documented in this encounter Care Teams House Nurse Relationship Specialty Start Date End Date Lesley Valencia M.D. NPDean: [phone] [address] [place] [phone] PCP - General Family Medicine 03/17/22 documented as of this encounter
--- OUTSIDE RECORDS SUMMARY | 2023-06-19 21:22 | XMS_ITS | Encounter Summary ---
Author Name Unknown Organization [facility] Address [address] [place] [address] Care Team Providers Care Community Outreach Manager Name Role Phone Lesley Valencia M.D. Primary Care Provider [phone] Encounter Details Date Type Department Care Team (Late Contact Info) Description 08/11/2022 Clinical Communication Department of Neurology in [place], [place] [address] [place] [address] Ran Mcnally M.D. [address] [place] [phone] Social History Tobacco Use Types Packs/Day Years [...] (Latest Contact Info) Description 07/18/2023 8:30 AM FLAKING ROLL OPERATOR Procedure visit Department of Obstetrics and Gynecology in [place], [place] [address] [place] [phone] Negrita Robertson, KIRSTEN, C.N.P. [address] [phone] Discharge Disposition: Home or Self Care documented as of this encounter Visit Diagnoses Not on filedocumented in this encounter Care Teams Community Outreach Manager Relationship Specialty Start Date End Date Lesley Valencia M.D. [address] [place] [address] [place] [phone] PCP - General Family Medicine 03/17/22 documented as of this encounter
--- OUTSIDE RECORDS SUMMARY | 2023-06-19 21:22 | XMS_ITS | Encounter Summary ---
Author Name Unknown Organization [facility] Address [address] [place] [address] Care Team Providers Care Wilton Weaver Name Role Phone Lesley Valencia M.D. Primary Care Provider [phone] Encounter Details Date Type Department Care Team (Late st Contact Info) Description 02/14/2023 Clinical Communication Department of Obstetrics and Gynecology in [place], [place] [address] [phone] Negrita Robertson APRN, C.N.P. [address] [address] Social History Tobacco Use Types [...] Telephone Encounter - Namrata Quiroz R.N. - 02/14/2023 4:29 PM CDT Called patient and relayed Negrita Robertson's message to patient. documented in this encounter Plan of Treatment Upcoming Encounters Date Type Department Care Team (Latest Contact Info) Description 07/18/2023 8:30 AM HOTEL ASSISTANT MANAGER Procedure visit Department of Obstetrics and Gynecology in [place], [place] [address] [place] [address] Negrita Robertson, SPA ASSISTANT MANAGER, C.N.P. [address] [phone] Discharge Disposition: Home or Self Care documented as of this encounter Visit Diagnoses Not on filedocumented in this encounter Care Teams Wilton Weaver Relationship Specialty Start Date End Date Lesley Valencia M.D. [address] [place] [phone] PCP - General Family Medicine 03/17/22 documented as of this encounter
--- OUTSIDE RECORDS SUMMARY | 2023-06-19 21:22 | XMS_ITS | Encounter Summary ---
Author Name Unknown Organization [facility] Address [address] [place] [address] Care Team Providers Care Wire Mill Operator Name Role Phone Lesley Valencia M.D. Primary Care Provider [phone] Reason for Referral * Outpatient (Routine) - Authorized Specialty Diagnoses / Procedures Referred By Harman lira Referred To Contact Lesley Valencia M.D. [address] [place] [phone] [facility] Region Referral ID Status Reason Start Date Expiration Date V isits Requested Visits Authorized [id number] Authorized 12/20/2022 12/19/2025 1 1 Scheduling Instructions Nurse AWV Do not schedule prior to due date to ensure insurance coverage Visit: Medicare Annual Wellness Never done. * Outpatient (Routine) - Authorized Specialty Diagnoses / Procedures Referred By Harman lira Referred To Contact Family Medicine Lesley Valencia M.D. [address] [place] [address] [facility] Region Referral ID Status Reason Start Date Expiration Date V isits Requested Visits Authorized [id number] Authorized 12/20/2022 12/19/2025 1 1 Scheduling Instructions Medicare annual provider visit/HCC gaps Do not schedule prior to due date to ensure insurance coverage Visit: Medicare Annual Wellness Never done. * Outpatient (Routine) - Authorized Specialty Diagnoses / Procedures Referred By Harman lira Referred To Contact Diagnoses Screening Mammogram Breast Cancer Procedures BI Breast Screening Bilateral with Tomosynthesis Lesley Valencia M.D. [address] [place] [address] [facility] Region Referral ID Status Reason Start Date Expiration Date V isits Requested Visits Authorized [id number] Authorized 12/20/2022 12/20/2023 1 1 Encounter Details Date Type Department Care Team (Late st Contact Info) Description 12/20/2022 Orders Only [facility] PCP [facility] Lesley Valencia M.D. [address] [place] [phone] Screening Mammogram Breast Cancer Social History Tobacco Use Types Packs/Day Years [...] (Latest Contact Info) Description 07/18/2023 8:30 AM FIELD CARE ADVOCATE Procedure visit Department of Obstetrics and Gynecology in [place], [place] [address] [place] [address] Negrita Robertson, METAL RECLAMATION KETTLE TENDER, C.N.P. [address] [place] [address] Discharge Disposition: Home or Self Care Scheduled Orders Name Type Priority Associated Diagnoses Order Schedule BI Breast Screening Bilateral with Tomosynthesis Imaging RAD - Routine (most inpatients and all outpatients) Screening Mammogram Breast Cancer Expected: 01/19/2023, Expires: 06/18/2023 Scheduled Referrals Name Type Priority Associated Diagnoses Orde r Schedule Family Medicine office visit (clinic) Outpatient Referral Routine Expected: 01/17/2023, Expires: 06/18/2023 Primary Care nurse visit (clinic) - [facility]; Medicare Annual Wellness Outpatient Referral Routine Expected: 01/17/2023, Expires: 06/18/2023 documented as of this encounter Visit Diagnoses Diagnosis Screening Mammogram Breast Cancer documented in this encounter Care Teams Wire Mill Operator Relationship Specialty Start Date End Date Lesley Valencia M.D. [address] [place] [phone] PCP - General Family Medicine 03/17/22 documented as of this encounter
--- OUTSIDE RECORDS SUMMARY | 2023-06-19 21:22 | XMS_ITS | Encounter Summary ---
Author Name Unknown Organization [facility] Address [address] [place] [address] Care Team Providers Care Food Service Counter Clerk Name Role Phone Lesley Valencia M.D. Primary Care Provider Encounter Details Date Type Department Care Team (Late Contact Info) Description 02/15/2023 Orders Only Department of Obstetrics and Gynecology in [place], [place] [address] [place] [phone] Negrita Robertson, SALES PROJECT MANAGER, C.N.P. [address] [place] [address] Pain Pelvic Female (Primary Dx); Pelvic And Perineal Pain Social History Tobacco Use Types Packs/Day Years [...] (Latest Contact Info) Description 07/18/2023 8:30 AM ARNP Procedure visit Department of Obstetrics and Gynecology in [place], [place] [address] [place] [phone] Negrita Robertson, KIRSTEN, C.N.P. [address] [place] [phone] Discharge Disposition: Home or Self Care documented as of this encounter Visit Diagnoses Diagnosis Pain Pelvic Female- Primary Pelvic And Perineal Pain documented in this encounter Care Teams Food Service Counter Clerk Relationship Specialty Start Date End Date Lesley Valencia M.D. [address] [place] [phone] PCP - General Family Medicine 03/17/22 documented as of this encounter
--- OUTSIDE RECORDS SUMMARY | 2023-06-19 21:22 | XMS_ITS | Encounter Summary ---
Author Name Unknown Organization [facility] Address [address] [place] [address] Care Team Providers Care Health Benefits Specialist Name Role Phone Lesley Valencia M.D. Primary Care Provider [phone] Reason for Referral * Outpatient (Routine) - Authorized Specialty Diagnoses / Procedures Referred By Harman lira Referred To Contact Obstetrics and Gynecology Diagnoses Symptoms Vasomotor Negrita Robertson APRN, C.N.P. [address] [phone] [facility] Region Referral ID Status Reason Start Date Expiration Date V isits Requested Visits Authorized [id number] Authorized 05/02/2023 05/01/2026 1 1 Scheduling Instructions 30 min f/u VMS ING MANAGER * Medication Prior Authorization - Authorized Specialty Diagnoses / Procedures Referred By Vidhiac t Referred To Contact Diagnoses Symptoms Vasomotor Negrita Robertson APRN, C.N.P. [address] [address] Referral ID Status Reason Start Date Expiration Date V isits Requested Visits Authorized [id number] Authorized 05/25/2023 06/11/2024 1 1 ING MANAGER Reason for Visit * Reason Comments Follow-up Med follow up * Outpatient (Routine) - Closed Specialty Diagnoses / Procedures Referred By Harman lira Referred To Contact Obstetrics and Gynecology Diagnoses Symptoms Vasomotor Negrita Robertson APRN, C.N.P. [address] [address] [facility] Region Referral ID Status Reason Start Date Expiration Date Visits Re quested Visits Authorized [id number] Closed 03/30/2023 03/29/2026 1 1 Encounter Details Date Type Department Care Team (Latest Contact Info) Description 05/02/2023 8:30 AM MAILING MANAGER Office Visit Department of Obstetrics and Gynecology in [place] [address] [place] [address] Negrita Robertson APRN, C.N.P. [address] [address] Preventive Gynecological Examination Laboratory Test (Primary Dx); Symptoms Vasomotor Discharge Disposition: Home or Self Care Social [...] your living situation today? I have a [facility] place to live 03/29/2023 Sex and Gender Information Value Date Recorded Sex Assigned at Female 03/29/2023 10:01 AM CDT Gender Identity Female 03/29/2023 10:01 AM CDT Sexual Orientation Lesbian or Gill 03/29/2023 10 :01 AM CDT documented as of this encounter Last Filed Vital Signs Vital Sign Reading Time Taken Comments Blood Pressure 116/80 05/02/2023 8:18 AM MAILING MANAGER Pulse - - Temperature - - Respiratory Rate - - Oxygen Saturation - - Inhaled Oxygen Concentration - - Weight 100 kg (220 lb 9.1 oz) 05/02/2023 8:18 AM MAILING MANAGER Height - - Body Mass Index 39.33 02/17/2022 1:04 PM CDT documented in this encounter Progress Notes * Negrita Robertson, KIRSTEN, C.N.P. - 05/02/2023 8:30 AM CST SUBJECTIVE Chief Complaint Patient presents with Follow-up Med follow up HISTORY OF PRESENT ILLNESS Saba is a 43 y.o. . No LMP recorded. (Menstrual status: Amenorrhea with hormonal injection). She presents with concerns surrounding Follow-up (Med follow up). She is utilizing Depo-Provera for management of her menorrhagia. She experiences amenorrhea and this pleased with her. She also experiences significant hot flashes and night sweats. In the past she had managed effectively with black cohosh, but that no longer is effective. She trialed gabapentin with no relief in her symptoms. She is not a candidate for estrogen due to cigarette smoking and significantly increased risk of cardiovascular event with dual usage. There was a new medication that has been FDA approved and is on the market called Veozah. We reviewed risks, benefits, side effects and use of the medication. She indicates that she has seen commercials about this medication. She would be interested in trialing the medication if she is able to get it covered affordable. She has checked with her insurance and they do not cover the medication. We went to the medication website and she applied for the prescription savings program that they offer. She also noted the phone number to call if she is not approved for the prescription savings program, to discuss other offers that they have. If she is able to get the medication for an affordable rate, she will initiate, and I will plan to see her back for blood workand follow-up in 3-4 months. REVIEW OF SYSTEMS Constitutional: Positive for night sweats. The following systems were negative: Skin, Eyes, ENT, Respiratory, Cardiovascular, Gastrointestinal, Genitourinary, Hematologic, Musculoskeletal, Neurological, Psychiatric The patient's allergies, current medications, problem list, social history and family history were reviewed and updated as appropriate. OBJECTIVE BP 116/80 Wt 100 kg BMI 39.33 kg/m?? PREVENTATIVE HEALTH Last Pap Result Date: 03/14/2022 PHYSICAL EXAM General: She is a well-appearing female, in no acute distress. ASSESSMENT / PLAN #1 Symptoms Vasomotor Overview: Black cohosh is no longer effectively managing her hot flashes and night sweats. She did trial gabapentin without improvement in her hot flashes. Prescription for Veozah was faxed to her pharmacy [place] assisted her in applying for the prescription savings plan through the medications website. If she is able to get the prescription, I would like blood work done in 3-4 months and a follow-up visit in clinic to see how she is tolerating the medication and to review her blood work. Orders: - Obstetrics and Gynecology office visit (clinic) - fezolinetant (VEOZAH) 45 mg tablet; Take 1 tablet (45 mg total) by mouth daily., Starting Mon05/02/2023, Normal - Obstetrics and Gynecology office visit (clinic); Future; Expected date: 08/30/2023 #2 Preventive Gynecological Examination Laboratory Test - Comprehensive Metabolic Panel; Future; Expected date: 08/30/2023 All questions have been answered and those present are in agreement with this plan. Negrita Robertson APRN, C.N.P. Patient Education Ready to learn, no apparent learning barriers were identified; learning preferences include listening. Explained diagnosis and treatment plan; patient expressed understanding of the content. ING MANAGER documented in this encounter Plan of Treatment Upcoming Encounters Date Type Department Care Team (Latest Contact Info) Description 07/18/2023 8:30 AM MAILING MANAGER Procedure visit Department of Obstetrics and Gynecology in [place], [place] [address] [facility] [address] Negrita Robertson APRN, C.N.P. [address] [phone] Discharge Disposition: Home or Self Care Scheduled Orders Name Type Priority Associated Diagnoses Orde r Schedule Comprehensive Metabolic Panel Lab Routine Preventive Gynecological Examination Laboratory Test Expected: 08/30/2023 (Approximate), Expires: 05/02/2024 Scheduled Referrals Name Type Priority Associated Diagnoses Order Schedule Obstetrics and Gynecology office visit (clinic) Outpatient Referral Routine Symptoms Vasomotor Expected: 08/30/2023 (Approximate), Expires: 08/02/2024 documented as of this encounter Visit Diagnoses Diagnosis Preventive Gynecological Examination Laboratory Test- Primary Symptoms Vasomotor documented in this encounter Administered Medications Active Administered Medications - up to 3 most recent administrations Medication Order MAR Action Action Date Dose Rate Site medroxyPROGESTERone injection 150 mg 150 mg, intramuscular, Every 3 months, First dose on Mon02/10/23 at 0915, For 4 doses Given 05/02/2023 8:32 AM MAILING MANAGER 150 mg Left Ventrogluteal Given 02/10/2023 9:00 AM CDT 150 mg Le ft Ventrogluteal documented in this encounter Care Teams Health Benefits Specialist Relationship Specialty Start Date End Date Lesley Valencia M.D. [address] [place] [phone] PCP - General Family Medicine 03/17/22 documented as of this encounter
--- OUTSIDE RECORDS SUMMARY | 2023-06-19 21:22 | XMS_ITS | Encounter Summary ---
Author Name Unknown Organization [facility] Address [address] [place] [address] Care Team Providers Care Mining Detail Draftsperson Name Role Phone Lesley Valencia M.D. Primary Care Provider [phone] Reason for Visit * Reason Comments Med Refill Encounter Details Date Type Department Care Team (Late st Contact Info) Description 04/26/2023 Refill Department of Obstetrics and Gynecology in [place], [place] [address] [place] [address] Negrita Robertson, KIRSTEN, C.N.P. [address] [place] [address] Med Refill Social History Tobacco Use Types Packs/Day Years [...] the money to buy more. Sometimes true 10 / Within the past 12 months, t he [...] your living situation today? I have a [facility] place to live 03/29/2023 Sex and Gender Information Value Date Recorded Sex Assigned at Female 03/29/2023 10:01 AM CDT Gender Identity Female 03/29/2023 10:01 AM CDT Sexual Orientation Lesbian or Gill 03/29/2023 10 :01 AM CDT documented as of this encounter Miscellaneous Notes * Telephone Encounter - Maria D Church R.N. - 04/27/2023 10:06 AM COOK PICKLED MEAT Has upcoming appointment on 05/02/23 and will be addressed at that time. PICKLED MEAT documented in this encounter Plan of Treatment Upcoming Encounters Date Type Department Care Team (Latest Contact Info) Description 07/18/2023 8:30 AM COOK PICKLED MEAT Procedure visit Department of Obstetrics and Gynecology in [place], [place] [address] [facility] [place] [phone] Negrita Robertson, DRYWALL TAPER, C.N.P. [address] [place] [address] Discharge Disposition: Home or Self Care documented as of this encounter Visit Diagnoses Diagnosis Symptoms Vasomotor documented in this encounter Care Teams Mining Detail Draftsperson Relationship Specialty Start Date End Date Lesley Valencia M.D. [address] [place] [phone] PCP - General Family Medicine 03/17/22 documented as of this encounter
--- OUTSIDE RECORDS SUMMARY | 2023-06-19 21:22 | XMS_ITS | Encounter Summary ---
Author Name Unknown Organization [facility] Address [address] [place] [address] Care Team Providers Care Teacher'S Assistant Name Role Phone Lesley Valencia M.D. Primary Care Provider [phone] Reason for Referral * Outpatient (Routine) - Closed Specialty Diagnoses / Procedures Referred By Harman t Referred To Contact Obstetrics and Gynecology Diagnoses Symptoms Vasomotor Negrita Robertson APRN, C.N.P. [address] [place] [address] [facility] Region Referral ID Status Reason Start Date Expiration Date Visits Re quested Visits Authorized [id number] Closed 03/30/2023 03/29/2026 1 1 Scheduling Instructions 30 min f/u hot flashes Reason for Visit * Reason Comments Menopause * Appointment Request (Routine) - Closed Specialty Diagnoses / Procedures Referred By Contac t Referred To Contact Obstetrics and Gynecology Referral ID Status Reason Start Date Expiration Date Visits Re quested Visits Authorized [id number] Closed 03/29/2023 03/28/2024 1 1 Encounter Details Date Type Department Care Team (Late st Contact Info) Description 03/30/2023 9:00 AM CDT Office Visit Department of Obstetrics and Gynecology in [place], [place] [address] [place] [phone] Negrita Robertson APRN, C.N.P. [address] [place] [phone] Symptoms Vasomotor (Primary Dx) Discharge Disposition: Home [...] Date Recorded Dental: Regular Dentist Yes 03/29/20 23 Employment Answer Date Recorded Employment status Permanently disabled Housing Stability Answer Date Recorded What is your living situation today? I have a [facility] place to live 03/29/2023 Sex and Gender Information Value Date Recorded Sex Assigned at Female 03/29/2023 10:01 AM CDT Gender Identity Female 03/29/2023 10:01 AM CDT Sexual Orientation Lesbian or Gill 03/29/2023 10 :01 AM CDT documented as of this encounter Last Filed Vital Signs Vital Sign Reading Time Taken Comments Blood Pressure 98/70 03/30/2023 8:53 AM CDT Pulse - - Temperature - - Respiratory Rate - - Oxygen Saturation - - Inhaled Oxygen Concentration - - Weight 98.5 kg (217 lb 4.2 oz) 03/30/2023 8:53 A M CDT Height - - Body Mass Index 38.74 02/17/2022 1:04 PM CDT documented in this encounter Progress Notes * Negrita Robertson APRN, C.N.P. - 03/30/2023 9:00 AM CDT SUBJECTIVE Chief Complaint Patient presents with Menopause HISTORY OF PRESENT ILLNESS Saba is a 43 y.o. . No LMP recorded. (Menstrual status: Amenorrhea with hormonal injection). She presents with concerns surrounding Menopause, and specifically hot flashes. She was utilizing black cohosh, which had been effectively managing her night sweats and hot flashes. She notes thatmore recently it is no longer helping. She experiences hot flashes and night sweats on a daily basis, multiple times per day. She has been using cooling pillows and dipping her feet in cold water to try to cool down. She notes that typically after hot flash, she becomes very cold once the hot flashgoes away. She also notes that during the day the symptoms tend to be worse. She will often become n auseous and even vomit occasionally when she has her hot flashes. She is interested in discussing alternative treatment options. She does continue to smoke cigarettes, but is working towards quitting. Therefore, estrogen is contraindicated. She is also cutting back on her caffeine, in hopes that will help reduce her hot flashes and night sweats. She does have history of fibromyalgia, attention deficit disorder, depression, chronic pain syndrome, anxiety and seizure disorder. Therefore, she is on many medications and care is required when adding medications to her current list. She also has allergies to many medications, primarily meds thatshe has noticed increase her seizure activity. She has taken gabapentin in the past and tolerated gabapentin quite well. She currently has a prescription for gabapentin 100 mg to take as needed. She really takes that, but when she does she tolerates it well. I think this would be the most appropriate treatment option to trial for treatment of her hot flashes at this time. She is agreeable, and feels good about it because she has tolerated it without any problems in the past. REVIEW OF SYSTEMS Constitutional: Positive for night sweats. Psychiatric/Behavioral: Positive for sleep disturbance. The following systems were negative: Skin, Eyes, ENT, Respiratory, Cardiovascular, Gastrointestinal, Genitourinary, Hematologic, Musculoskeletal, Neurological The patient's allergies, current medications, problem list, social history and family history were reviewed and updated as appropriate. OBJECTIVE BP 98/70 Wt 98.5 kg BMI 38.74 kg/m?? PREVENTATIVE HEALTH Last Pap Result Date: 03/14/2022 PHYSICAL EXAM General: She is a well-appearing female, in no acute distress. ASSESSMENT / PLAN #1 Symptoms Vasomotor Overview: Black cohosh is no longer effectively managing her hot flashes and night sweats. She was given prescription for gabapentin. She is tolerated this medication in the past. She will titrate up to 300 mgdaily and I will plan to see her back for follow-up in 1 month. Orders: - gabapentin (NEURONTIN) 100 mg capsule; Take 1 capsule (100 mg total) by mouth as directed. Take 100 mg daily for 1 week, then 100 mg twice daily for 1 week, then 100 mg 3 times daily., Starting Mon03/30/2023, Normal - Obstetrics and Gynecology office visit (clinic); Future; Expected date: 04/30/2023 All questions have been answered and those [...] (Latest Contact Info) Description 07/18/2023 8:30 AM HEEL SEAM RUBBER Procedure visit Department of Obstetrics and Gynecology in [address] [phone] Negrita Robertson APRN, C.N.P. [address] [place] [address] Discharge Disposition: Home or Self Care Scheduled Referrals Name Type Priority Associated Diagnoses Order Schedule Obstetrics and Gynecology office visit (clinic) Outpatient Referral Routine Symptoms Vasomotor Expected: 04/30/2023 (Approximate), Expires: 06/30/2024 documented as of this encounter Visit Diagnoses Diagnosis Symptoms Vasomotor- Primary documented in this encounter Care Teams Teacher'S Assistant Relationship Specialty Start Date End Date Lesley Valencia M.D. [address] [place] [phone] PCP - General Family Medicine 03/17/22 documented as of this encounter
--- OUTSIDE RECORDS SUMMARY | 2023-06-19 21:22 | XMS_ITS | Encounter Summary ---
Author Name Unknown Organization [facility] Address [address] [place] [address] Care Team Providers Care Human Resources Clerk Name Role Phone Lesley Valencia M.D. Primary Care Provider [phone] Reason for Visit * Outpatient (Routine) - Closed Specialty Diagnoses / Procedures Referred By Harman lira Referred To Contact Diagnoses Symptoms Vasomotor Procedures Injection Visit - Depo-Provera Joseph Crockett M.D. [address] [place] [address] [facility] Region Referral ID Status Reason Start Date Expiration Date Visits Re quested Visits Authorized [id number] Closed 04/01/2022 04/01/2023 1 1 Encounter Details Date Type Department Care Team (Latest Contact Info) Description 09/09/2022 9:00 AM CDT Procedure visit Department of Obstetrics and Gynecology in [place], [place] [address] [place] [address] Joseph Crockett M.D. [address] [place] [address] Nancy Corbin L.PAdina Symptoms Vasomotor Discharge Disposition: Home or Self [...] AM CDT documented as of this encounter Progress Notes * Nancy Corbin L.PEdnaN. - 09/09/2022 9:00 AM CDT Date of last gynecologic examination from a [facility] prescriber: 04-01-2022 Date of last documented prescription for Depo-Provera?? (Medroxyprogesterone) from a [facility] prescriber: 06-23-2022 Date of last Depo-Provera?? (Medroxyprogesterone) injection: 06-23-2022 Today's date is within injection time frame as ordered by healthcare provider. Patient denies any medical risk factors or concerns regarding medication. Patient instructed to return for injection on/between: November 25- Patient is able to teach back instructions. documented in this encounter Plan of Treatment Upcoming Encounters Date Type Department Care Team (Latest Contact Info) Description 07/18/2023 8:30 AM AIRCRAFT PILOT Procedure visit Department of Obstetrics and Gynecology in [address] [address] Negrita Robertson APRN, C.N.P. [address] [place] [phone] Discharge Disposition: Home or Self Care documented as of this encounter Visit Diagnoses Diagnosis Symptoms Vasomotor documented in this encounter Administered Medications Inactive Administered Medications - up to 3 most recent administrations Medication Order MAR Action Action Date Dose Rate Site medroxyPROGESTERone injection 150 mg 150 mg, intramuscular, Every 12 weeks, First dose on Janice 06/23/22 at 1300, For 3 doses Given 11/25/2022 8:50 AM CDT 150 mg Left Ventrogluteal Given 09/09/2022 9:03 AM CDT 150 mg Ri ght Ventrogluteal Given 06/23/2022 12:51 PM AIRCRAFT PILOT 150 mg R ight Ventrogluteal documented in this encounter Care Teams Human Resources Clerk Relationship Specialty Start Date End Date Lesley Valencia M.D. [address] [place], [place] [address] [phone] PCP - General Family Medicine 03/17/22 documented as of this encounter
--- OUTSIDE RECORDS SUMMARY | 2023-06-19 21:22 | XMS_ITS | Encounter Summary ---
Author Name Unknown Organization [facility] Address [address] [place] [address] Care Team Providers Care Perforator Name Role Phone Lesley Valencia M.D. Primary Care Provider [phone] Reason for Visit * Outpatient (Routine) - Closed Specialty Diagnoses / Procedures Referred By Harman lira Referred To Contact Diagnoses Symptoms Vasomotor Procedures Injection Visit - Depo-Provera Joseph Crockett M.D. [address] [place] [address] [facility] Region Referral ID Status Reason Start Date Expiration Date Visits Re quested Visits Authorized [id number] Closed 04/01/2022 04/01/2023 1 1 Encounter Details Date Type Department Care Team (Latest Contact Info) Description 11/25/2022 9:15 AM CDT Procedure visit Department of Obstetrics and Gynecology in [place], [place] [address] [place] [address] Joseph Crockett M.D. [address] [place] [address] Zahira Troy L.PEdnaNEdna [address] [place] [address] Symptoms Vasomotor Discharge Disposition: Home or Self [...] Sign Reading Time Taken Comments Blood Pressure 130/80 11/25/2022 8:49 AM CDT Pulse - - Temperature - - Respiratory Rate - - Oxygen Saturation - - Inhaled Oxygen Concentration - - Weight 95.9 kg (211 lb 8.5 oz) 11/25/2022 8:49 A M CDT Height - - Body Mass Index 37.72 02/17/2022 1:04 PM CDT documented in this encounter Progress Notes * Zahira Troy L.P.N. - 11/25/2022 9:15 AM CDT Patient identifiers were verified and the following medication was administered to the patient today: Medroxyprogesterone (Depo-Provera). During this visit: Patient tolerated medication administration with no issues identified documented in this encounter Plan of Treatment Upcoming Encounters Date Type Department Care Team (Latest Contact Info) Description 07/18/2023 8:30 AM METAL MOLDER Procedure visit Department of Obstetrics and Gynecology in [place] [address] [place] [phone] Negrita Robertson, KIRSTEN, C.N.P. [address] [phone] Discharge Disposition: Home or Self Care [...] Ri ght Ventrogluteal Given 06/23/2022 12:51 PM METAL MOLDER 150 mg R ight Ventrogluteal documented in this encounter Care Teams Perforator Relationship Specialty Start Date End Date Lesley Valencia M.D. [address] [place] [phone] PCP - General Family Medicine 03/17/22 documented as of this encounter
--- OUTSIDE RECORDS SUMMARY | 2023-06-19 21:23 | XMS_ITS | Encounter Summary ---
Author Name Unknown Organization [facility] Address [address] [place] [address]. [place] [address] Care Team Providers Care Hog Dropper Name Role Phone Mariano Velazco Primary Care Provider [phone] Reason for Visit * Reason Onset Date Comments Call Back 08/09/2019 [facility] wanting t o discuss what Radiology reports are needed Encounter Details Date Type Department Care Team ([facility] Contact Info) Description 08/09/2019 Telephone [facility] [address] [place] [address] [address] [place] [address] Oliver Herrera MD [address] [place] [phone] Call Back ([facility] wanting to discuss what Radiology reports are needed) Social History Tobacco Use Types Packs/Day Years Used Date Smoking Tobacco: Every Day Cigarettes 1 Smokeless Tobacco: Never Alcohol Use Standard Drinks/Week Comments Yes 0 (1 standard drink = 0.6 oz pur e alcohol) none 1 month Sex and Gender Information Value Date Recorded Sex Assigned at Not on file Gender Identity Not on file Sexual Orientation Not on file documented as of this encounter Miscellaneous Notes * Telephone Encounter - Maritza Myrick - 08/09/2019 3:44 PM CST [facility] Call Center Phone Message May a detailed message be left on voicemail: yes Reason for Call: Other: [facility] calling in to see what Radiligy reports are needed. Will stated thatthere was no specifics only a two year time frame. Please reach out to will for more information. Thank you Action Taken: Message routed to: [facility] Ortho Travel Screening: Not Applicable ALT SPREADER documented in this encounter Plan of Treatment Not on file documented as of this encounter Visit Diagnoses Not on filedocumented in this encounter Care Teams Hog Dropper Relationship Specialty Start Date End Date Mariano Velazco PCP - General Family Practice 03/30/17 documented as of this encounter
--- OUTSIDE RECORDS SUMMARY | 2023-06-19 21:23 | XMS_ITS | Encounter Summary ---
Author Name Unknown Organization [facility] Address [address] [place] [address] Care Team Providers Care Director Of Capital Giving Name Role Phone Lesley Valencia M.D. Primary Care Provider [phone] Reason for Visit * Outpatient (Routine) - Closed Specialty Diagnoses / Procedures Referred By Harman lira Referred To Contact Diagnoses Symptoms Vasomotor Procedures Injection Visit - Depo-Provera Joseph Crockett M.D. [address] [place] [address] [facility] Region Referral ID Status Reason Start Date Expiration Date Visits Re quested Visits Authorized [id number] Closed 04/01/2022 04/01/2023 1 1 Encounter Details Date Type Department Care Team (Latest Contact Info) Description 06/23/2022 1:15 PM MARKING STITCHER Procedure visit Department of Obstetrics and Gynecology in [place], [place] [address] [place] [address] Joseph Crockett M.D. [address] [place] [address] Zahira Troy L.PEdnaN. [address] [place] [address] Dysmenorrhea (Primary Dx); Symptoms Vasomotor Discharge Disposition: Home [...] Sign Reading Time Taken Comments Blood Pressure - - Pulse - - Temperature - - Respiratory Rate - - Oxygen Saturation - - Inhaled Oxygen Concentration - - Weight 93.8 kg (206 lb 12.7 oz) 023 12:49 PM MARKING STITCHER Height - - Body Mass Index 36.87 02/17/2022 1:04 PM CDT documented in this encounter Progress Notes * Zahira Troy L.P.N. - 06/23/2022 1:15 PM CST Patient identifiers were verified and the following medication was administered to the patient today: Medroxyprogesterone (Depo-Provera). During this visit: Patient tolerated medication administration with no issues identified ING STITCHER documented in this encounter Plan of Treatment Upcoming Encounters Date Type Department Care Team (Latest Contact Info) Description 07/18/2023 8:30 AM MARKING STITCHER Procedure visit Department of Obstetrics and Gynecology in [address] [address] Negrita Robertson APRN, C.N.P. [address] [address] Discharge Disposition: Home or Self Care documented as of this encounter Visit Diagnoses Diagnosis Dysmenorrhea- Primary Symptoms Vasomotor documented in this encounter [...] Ri ght Ventrogluteal Given 06/23/2022 12:51 PM MARKING STITCHER 150 mg R ight Ventrogluteal documented in this encounter Care Teams Director Of Capital Giving Relationship Specialty Start Date End Date Lesley Valencia M.D. [address] [place] [address] [place] [address] PCP - General Family Medicine 03/17/22 documented as of this encounter
--- OUTSIDE RECORDS SUMMARY | 2023-06-19 21:23 | XMS_ITS | Encounter Summary ---
Author Name Unknown Organization [facility] Address [facility], [facility] [place] [address] Care Team Providers Care Lens Block Gauger Name Role Phone Mariano Velazco Primary Care Provider [phone] Reason for Visit * Reason Onset Date Comments other 12/19/2017 Oxycodone reques t Encounter Details Date Type Department Care Team (Late st Contact Info) Description 12/19/2017 Telephone [facility] [address] [address] [place] [address] [address] other (Oxycodone request) Social History Tobacco Use Types Packs/Day Years [...] encounter Miscellaneous Notes * Telephone Encounter - Aubree Escobar - 12/19/2017 12:24 PM CDT Per Nereida LAWSON, okay for one time refill to manage until appointment on 12/28/17. [facility] [place] Patient notified that this will be the last refill from our clinic. * Telephone Encounter - Tere Srinivasan RN - 12/19/2017 10:40 AM CDT Spoke with patient she is scheduled for comprehensive pain care evaluation on 12/28. She is reporting continued pain along the left side of her incision and asking for another refill of her oxycodone to get her through until her scheduled appointment with pain management. Last refill was on 12/11 for # 40 max of 3/day. If approved she is asking for the Rx to mailed to [facility] in [place]. * Telephone Encounter - Namrata Pardo - 12/19/2017 9:56 AM CDT REASON FOR CALL: Pt requesting script for Oxycodone. If approved, requesting that script be mailed to [facility] in [place]. Detailed message can be left: YES documented in this encounter Plan of Treatment Not on file documented as of this encounter Visit Diagnoses Not on filedocumented in this encounter Care Teams Lens Block Gauger Relationship Specialty Start Date End Date Mariano Velazco PCP - General Family Practice 03/30/17 documented as of this encounter
--- OUTSIDE RECORDS SUMMARY | 2023-06-19 21:23 | XMS_ITS | Encounter Summary ---
Author Name Unknown Organization [facility] Address [address] [place] [address]. [place] [address] Care Team Providers Care Closed Circuit Screen Watcher Name Role Phone Mariano Velazco Primary Care Provider [phone] Reason for Visit * Reason Onset Date Comments other 09/19/2017 Prescription Encounter Details Date Type Department Care Team (Late st Contact Info) Description 09/19/2017 Telephone [facility] [address] [address] [place] [address] [address] other (Prescription ) Social History Tobacco Use Types Packs/Day Years [...] * Telephone Encounter - Aubree Escobar - 09/19/2017 2:41 PM CDT Spoke with patient. Per pharmacy, next fill date is 09/28/17. Can mail script in advance so it can arrive to pharmacy in time. Patient voiced agreement with this plan. * Telephone Encounter - Catrachita Swanson - 09/19/2017 1:43 PM CDT Pt called and asked that we mail her prescription for oxycodone to [facility] in [place]. Please call her when it's been sent. documented in this encounter Plan of Treatment Not on file documented as of this encounter Visit Diagnoses Not on filedocumented in this encounter Care Teams Closed Circuit Screen Watcher Relationship Specialty Start Date End Date Mariano Velazco PCP - General Family Practice 03/30/17 documented as of this encounter
--- OUTSIDE RECORDS SUMMARY | 2023-06-19 21:23 | XMS_ITS | Encounter Summary ---
Author Name Unknown Organization [facility] Address [facility] [place] [address] Care Team Providers Care Clinical Coder Name Role Phone Mariano Velazco Primary Care Provider [phone] Reason for Visit * Reason Onset Date Comments refill request status 11/21/2017 Encounter Details Date Type Department Care Team (Late st Contact Info) Description 11/21/2017 Telephone [facility] [address] [address] [place] [address] [place] [facility] [address] [place] [address] refill request status Social History Tobacco Use Types Packs/Day Years [...] * Telephone Encounter - Aubree Escobar - 12/04/2017 2:25 PM CDT Patient called clinic again. She thinks she has enough oxycodone tabs remaining until her clinic appt next Monday12/11/17. She'd like to discuss one last refill at her appt though. Will communicate with care team. * Telephone Encounter - Aubree Escobar - 12/04/2017 9:34 AM CDT Patient called back. She reports taking 4-6 tabs per day to manage her increased back pain from fracture. The prescription on 11/17/17 allowed for 3 tabs per day. Patient also reports going to ED yesterday in [facility]. They prescribed 6 tabs oxycodone. Patient has f/u scheduled on 12/11/17. She's requesting oxycodone refill in advance since it needs william mailed to her pharmacy in [facility] (this takes about 5 days to arrive via mail). Will discuss plan with care team. * Telephone Encounter - Aubree Escobar - 12/04/2017 9:11 AM CDT Patient is 3 months s/p T9-10 laminectomy and discectomy on 09/05/17. Contacted [facility] regarding oxycodone. Pharmacist, Bonnie, states it was last filled on 11/22/17 for a 14 day supply. Per note, patient has 4 days left at this time. LVM with patient to discuss taper and how many tabsper day she's currently taking. Awaiting call back. * Telephone Encounter - Luiza Armstrong CMA - 12/04/2017 8:39 AM CDT REASON FOR CALL: Patient calling and requesting a refill on Oxycodone. Patient states still has four days worth left but wants refill sent out as it takes a few days to reach pharmacy. Detailed message can be left: YES * Telephone Encounter - Luiza Armstrong CMA - 12/04/2017 8:31 AM CDT Patient called to speak with Aubree in regards to oxycodone refill, also called patient back to find out if pharmacy had received script or if patient was out of medication. Luiza Armstrong CMA on 12/04/2017 at 8:33 AM * Telephone Encounter - Aubree Escobar - 11/21/2017 4:18 PM CDT Contacted [facility] in [facility]. They have not received the script via mail yet, but in the past it has taken up to a week to receive. Script was mailed to [facility] on 11/17/17. Will update patient. * Telephone Encounter - Catrachita Swanson - 11/21/2017 10:55 AM CDT Pt calling asking if the prescription for pain meds has been mailed to her pharmacy yet? documented in this encounter Plan of Treatment Not on file documented as of this encounter Visit Diagnoses Diagnosis S/P discectomy Other postprocedural status documented in this encounter Care Teams Clinical Coder Relationship Specialty Start Date End Date Mariano Velazco PCP - General Family Practice 03/30/17 documented as of this encounter
--- OUTSIDE RECORDS SUMMARY | 2023-06-19 21:23 | XMS_ITS | Referral Summary ---
Author Name Unknown Organization [facility] Address [address] [place] [address]. [place] [address] Care Team Providers Care Car Seat Coverer Name Role Phone Mora Mariano Primary Care Provider [phone] Allergies Active Allergy Reactions Criticality Noted Date Comments Bupropion Hydrobromide 07/09/2012 Possible seizure Medications Medication Sig Dispensed Refills Start Date End Date Status TRAZODONE HCL PO Take 300 mg by mouth At Bedtime (3 x 100 mg = 300 mg dose) 0 Active albuterol (2.5 MG/3ML) 0.083% neb solution Take 1 vial by nebulization every 6 hours as needed for shortness of breath / dyspnea or wheezing 0 Active ARIPiprazole (ABILIFY) 15 MG tablet Take 15 mg by mouth daily 0 Active ATORVASTATIN CALCIUM PO Take 10 mg by mouth every evening 0 Active calcium polycarbophil (FIBERCON) 625 MG tablet Take 1 tablet by mouth daily 0 Active Docusate Sodium (COLACE PO) Take 100 mg by mouth daily as needed 0 Active fluticasone (FLONASE) 50 MCG/ACT spray [place] 1 spray into both nostrils daily as needed 0 Active Lisdexamfetamine Dimesylate (VYVANSE PO) Take 40 mg by mouth daily 0 Active ondansetron (ZOFRAN-ODT) 4 MG ODT tab Take 4 mg by mouth every 8 hours as needed for nausea 0 Active nicotine (NICODERM CQ) 21 MG/24HR [address] 1 patch onto the skin daily as needed 0 Active nicotine (NICOTROL) 10 MG/ML SOLN inhalation solution [place] 1 spray in nostril every hour as needed for smoking cessation 0 Active ipratropium - albuterol 0.5 mg/2.5 mg/3 mL (DUONEB) 0.5-2.5 (3) MG/3ML neb solution Take 1 vial by nebulization every 6 hours as needed for shortness of breath / dyspnea or wheezing 0 Active VITAMIN D, CHOLECALCIFEROL, PO Take 1,000 Units by mouth daily 0 Active Pregabalin (LYRICA PO) Take 150 mg by mouth 3 times daily 0 Active PROPRANOLOL HCL PO Take 10-20 mg by mouth 3 times daily as needed for high blood pressure 0 Active VENLAFAXINE HCL ER PO Take 150 mg by mouth At Bedtime 0 Active PANTOPRAZOLE SODIUM PO Take 40 mg by mouth every morning (before breakfast) 0 Active MELATONIN PO Take 10 mg by mouth At Bedtime 0 Active fish oil-omega-3 fatty acids 1000 MG capsule Take 2 g by mouth daily 0 Active diclofenac (VOLTAREN) 1 % GEL topical gel Place onto the skin 4 times daily as needed 0 Active fluocinonide (LIDEX) 0.05 % cream Apply topically 2 times daily as needed 0 Active mometasone-formotero l (DULERA) 100-5 MCG/ACT oral inhaler Inhale 2 puffs into the lungs 2 times daily 0 Active senna-docusate (SENOKOT-S;PERICOLAC E) 8.6-50 MG per tablet Take 1 tablet by mouth At Bedtime 0 Active albuterol (PROAIR HFA/PROVENTIL HFA/VENTOLIN HFA) 108 (90 BASE) MCG/ACT Inhaler Inhale 1-2 puffs into the lungs every 6 hours as needed for shortness of breath / dyspnea or wheezing 0 Active CALCIUM PO Take 1 tablet by mouth daily 0 Active Cyclobenzaprine HCl (FLEXERIL PO) Take 10 mg by mouth 3 times daily as needed for muscle spasms 0 Active HydrOXYzine Pamoate (VISTARIL PO) Take 50 mg by mouth 3 times daily as needed for itching 0 Active multivitamin peds with iron (FLINTSTONES COMPLETE) 60 MG chewable tablet Take 2 chew tab by mouth daily 0 Active Venlafaxine HCl (EFFEXOR XR PO) Take 225 mg by mouth every morning (1 x 150 mg + 1 x 75 mg = 225 mg dose) 0 Active GARCINIA CAMBOGIA-CHROMIUM PO Take 2 tablets by mouth daily 0 Active Ferrous Sulfate (IRON SUPPLEMENT PO) Take 1 tablet by mouth daily 0 Active Cyanocobalamin (VITAMIN B 12 PO) Take 1 tablet by mouth daily 0 Active aspirin 81 MG tabletIndications:St atus post cervical spinal arthrodesis Take 1 tablet (81 mg) by mouth daily 30 tablet 0 09/19/2017 Active busPIRone (BUSPAR) 10 MG tablet Take 10 mg by mouth 2 times daily 0 Active vortioxetine (TRINTELLIX) 20 MG tablet Take 20 mg by mouth daily 0 Active oxyCODONE (ROXICODONE) 5 MG tabletIndications:S/ P discectomy Take 1 tablet (5 mg) by mouth every 8 hours as needed for moderate to severe pain (Moderate to Severe) . Max of 3 tabs per day 40 tablet 0 05/28/2018 Active Active Problems Problem Noted Date Diagnosed Date Status post cervical spinal arthrodesis 04/18/20 17 Immunizations Name Administration Dates Next Due Hepatitis B, Adult 01/30/2013,08/03/2012, 012 Influenza (IIV3) PF 03/10/2014, 3,02/24/2013,2011,02/12/2009,04/27/2005,04/12/2005 Influenza (intradermal) 03/03/2016,03/31/2015 Influenza Vaccine >6 months,quad, PF 02/20/2018 Pneumococcal 23 valent 01/22/2013 TD,PF 7+ (Tenivac) 02/29/2008,11/10/2004, 004 TDAP Vaccine (Adacel) 01/16/2014,11/13/2013,05/13 Social History Tobacco Use Types Packs/Day Years Used Date Smoking Tobacco: Every Day Cigarettes 1 Smokeless Tobacco: Never Tobacco Cessation:Ready to Q uit: No; Counseling Given: No Alcohol Use Standard Drinks/Week Comments Yes 0 (1 standard drink = 0.6 oz pur e alcohol) none 1 month Adolescent Education Answer Date Record ed Getting School Help Needed Not on file 03/03 Sex and Gender Information Value Date Recorded Sex Assigned at Not on file Gender Identity Not on file Sexual Orientation Not on file Last Filed Vital Signs Vital Sign Reading Time Taken Comments Blood Pressure 148/102 06/20/2018 8:22 AM DAIRY EQUIPMENT MECHANIC Pulse 103 06/20/2018 8:18 AM DAIRY EQUIPMENT MECHANIC Temperature 36.1 ??C (97 ??F) 05/28/2018 1:05 PM DAIRY EQUIPMENT MECHANIC Respiratory Rate 15 09/05/2017 5:00 PM CDT Oxygen Saturation 98% 06/20/2018 8:18 AM DAIRY EQUIPMENT MECHANIC Inhaled Oxygen Concentration - - Weight 95.3 kg (210 lb) 06/20/2018 8:18 AM DAIRY EQUIPMENT MECHANIC Height 160 cm (5' 3) 09/05/2017 11:22 AM CDT Body Mass Index 37.2 09/05/2017 11:22 AM CDT Plan of Treatment Not on file Medical Devices Implanted Type Area Life Sciences Director Device Identifier Shelf Expiration Date Model / Serial / Lot Imp Spacer Strk Avs [id number] [id number] Implanted:Qt y: 3 on 04/18/2017 by Rishi Warren MD at [facility] Metallic Hardware/An chor N/A: Spine Cervical OSKAR [employer] [id number] / / [id number] Imp 10mm Rescue Screw Implanted:Qt y: 2 on 04/18/2017 by Rishi Warren MD at [facility] N/A: Spine Cervical [employer]- 10-14-010 / / [id number] 04 Advance Directives For more information, please contact: [phone] Latest Code Status on File Code Status Date Activated Date Inactivated Comments Full Code 04/19/2017 9:47 AM Code Status History Code Status Date Activated Date Inactivated Comments Full Code 04/18/2017 1:48 PM 04/19/2017 9:47 AM Care Teams Car Seat Coverer Relationship Specialty Start Date End Date Kevenjose jMariano PCP - General Family Practice 03/30/17
--- OUTSIDE RECORDS SUMMARY | 2023-06-19 21:23 | XMS_ITS | Encounter Summary ---
Author Name Unknown Organization [facility] Address [address] [place] [address]. [place] [address] Care Team Providers Care Bulk Clerk Name Role Phone Mariano Velazco Primary Care Provider [phone] Reason for Visit * Reason Onset Date Comments other 08/10/2017 Discuss thoracic spine surgery Encounter Details Date Type Department Care Team (Late st Contact Info) Description 08/10/2017 Telephone [facility] [address] [address] [place] [address] [place] [address] [address] other (Discuss thoracic spine surgery ) Social History Tobacco Use Types Packs/Day [...] * Telephone Encounter - Aubree Escobar - 08/10/2017 2:35 PM CST Contacted patient to schedule follow up appt with Dr. Warren. [facility], awaiting call back to schedule. PIN BOWLING CENTRE MANAGER * Telephone Encounter - Namrata Pardo - 08/10/2017 9:59 AM CST REASON FOR CALL: Pt states that recent injection only provided 30% relief and Dr. Moya is not recommending another injection. States Dr. Moya is referring her back to Dr. Warren to discuss surgical options. Pt requesting call back to discuss/confirm next steps. Detailed message can be left: YES PIN BOWLING CENTRE MANAGER documented in this encounter Plan of Treatment Not on file documented as of this encounter Visit Diagnoses Not on filedocumented in this encounter Care Teams Bulk Clerk Relationship Specialty Start Date End Date Mariano Velazco PCP - General Family Practice 03/30/17 documented as of this encounter
--- OUTSIDE RECORDS SUMMARY | 2023-06-19 21:23 | XMS_ITS | Clinical Summary ---
Author Name Unknown Organization [facility] Address [address] [place] [address]. [place] [address] Care Team Providers Care Boat Camp Operator Name Role Phone Mora Mariano Primary Care Provider [phone] Allergies Active Allergy Reactions Criticality Noted Date [...] 0 Active fluticasone (FLONASE) 50 MCG/ACT spray [place] 1 spray into both nostrils daily as [...] nicotine (NICOTROL) 10 MG/ML SOLN inhalation solution [place] 1 spray in nostril every hour as [...] Comments Blood Pressure 148/102 06/20/2018 8:22 AM ASSISTANT COUNTY ENGINEER Pulse 103 06/20/2018 8:18 AM ASSISTANT COUNTY ENGINEER Temperature 36.1 ??C (97 ??F) 05/28/2018 1:05 PM ASSISTANT COUNTY ENGINEER Respiratory Rate 15 09/05/2017 5:00 PM CDT Oxygen Saturation 98% 06/20/2018 8:18 AM ASSISTANT COUNTY ENGINEER Inhaled Oxygen Concentration - - Weight 95.3 kg (210 lb) 06/20/2018 8:18 AM ASSISTANT COUNTY ENGINEER Height 160 cm (5' 3) 09/05/2017 11:22 AM CDT Body Mass Index 37.2 09/05/2017 11:22 AM CDT Plan of Treatment Health Maintenance Due Date Last Done Comments ADVANCE CARE PLANNING 1982 ANNUAL REVIEW OF HM ORDERS 1982 URINE DRUG SCREEN 1982 COVID-19 Vaccine (#1) 1982 HIV SCREENING 1997 HEPATITIS C SCREENING 01/30/2000 MEDICARE ANNUAL WELLNESS VISIT 01/30/2000 PAP 2003 Pneumococcal Vaccine: Pediatrics (0 to 5 Years) and At-Risk Patients (6 to 64 Years) (2 of 2 - PCV) 01/22/2014 01/22/2013 PHQ-2 (once per calendar year) 2022 INFLUENZA VACCINE (#1) 2023 9, 02/20/2018, 02/20/2018, Additional history exists DTAP/TDAP/TD IMMUNIZATION (6 - Td or Tdap) 01/17/2024 01/16/2014, 11/13/2013, 06/04/2012, Additional history exists HEPATITIS B IMMUNIZATION Completed 013, 08/03/2012, 06/04/2012 HPV IMMUNIZATION Aged Out No longer e ligible based on patient's age to complete this topic IPV IMMUNIZATION Aged Out No longer e ligible based on patient's age to complete this topic MENINGITIS IMMUNIZATION Aged Out No l onger eligible based on patient's age to complete this topic RSV MONOCLONAL ANTIBODY Aged Out No l onger eligible based on patient's age to complete this topic Medical Devices Implanted Type Area Casting Machine Operator Helper Device Identifier Shelf Expiration Date Model / Serial / Lot Imp Spacer Strk Avs [id number] 4deg [id number] Implanted:Qt y: 3 on 04/18/2017 by Rishi Warren MD at [facility] Metallic Hardware/An chor N/A: Spine Cervical OSKAR [employer] [id number] / / [id number] 04 Imp 10mm Rescue Screw Implanted:Qt y: 2 on 04/18/2017 by Rishi Warren MD at [facility] N/A: Spine Cervical OSKAR [employer]- 10-14-010 / / [id number] 04 Advance Directives For more information, please contact: [phone] Latest Code Status on File Code Status Date Activated Date Inactivated Comments Full Code 04/19/2017 9:47 AM Code Status History Code Status Date Activated Date Inactivated Comments Full Code 04/18/2017 1:48 PM 04/19/2017 9:47 AM Care Teams Boat Camp Operator Relationship Specialty Start Date End Date Mariano Velazco PCP - General Family Practice 03/30/17
--- OUTSIDE RECORDS SUMMARY | 2023-06-19 21:23 | XMS_ITS | Encounter Summary ---
Author Name Unknown Organization [facility] Address [address] [place] [address] Care Team Providers Care Logistics System Engineer Name Role Phone MoraMariano Primary Care Provider [phone] Reason for Referral * Specialty Diagnoses / Procedures Referred By Harman t Referred To Contact Rishi Warren MD [address] [facility] [address] [place] [address] Referral ID Status Reason Start Date Expiration Date Visits Re quested Visits Authorized Comments This referral order prints off in the [facility] Central Scheduling Office The [facility] Central Scheduling Staff will contact the patient to schedule appointments. Central Scheduling Contact Information: ([facility]) Orthotics: Jewitt brace Please be aware that coverage of these services is subject to the terms and limitations of your health insurance plan. Call member services at your health plan with any benefit or coverage questions. Please bring the following to your appointment: >> Any x-rays, CTs or MRIs which have been performed. Contact the facility where they were done to arrange for berry picker prior to your scheduled appointment. >> List of current medications >> This referral request >> Any documents/labs given to you for this referral Reason for Visit * Reason Onset Date Comments Other 11/21/2017 Suspected spine fracture Encounter Details Date Type Department Care Team (Late st Contact Info) Description 11/21/2017 Telephone [facility] [address] [place] [phone] [place] [address] [place] [phone] Other (Suspected spine fracture ) Social History Tobacco Use Types Packs/Day [...] * Telephone Encounter - Aubree Escobar - 11/22/2017 11:[address] Warren reviewed recent CT thoracic spine. He recommends Jewitt brace and follow up in clinic as scheduled. Oxycodone script was mailed to [facility] on 11/17/17. Pharmacy will contact patient when it's ready for berry picker. Discussed with patient and she voiced agreement with plan. Placed order through [facility].Advised patient to call back with any further questions, concerns, or if symptoms change/worsen. * Telephone Encounter - Aubree Escobar - 11/22/2017 9:59 AM CDT Returned call and spoke with patient. She is s/p T9-10 lami on 09/05/17. She went to [facility] ED on 11/17/17 for upper back pain. Denies any fall or injury to cause the increased pain. CT thoracic spine done at ED visit. Will have Dr. Warren review. Also received notes from ED visit. Today, patient is reporting continued 9/10 mid back pain radiating to bilateral ribs. Denies any weakness or neurological changes. Will communicate with Dr. Warren for review and recommendation. * Telephone Encounter - Aubree Escobar - 11/21/2017 4:[address] reviewed by Nereida SMITH Will further discuss with Dr. Warren as well. Still awaiting notesfrom ED. * Telephone Encounter - Aubree Escobar - 11/21/2017 4:19 PM CDT Awaiting images and report so can review with care team. * Telephone Encounter - Namrata Pardo - 11/21/2017 11:21 AM CDT REASON FOR CALL: Pt calling stating she has a thoracic spinal fracture. Patient had x-rays done at [facility] in [facility]. Requesting images and report. Detailed message can be left: YES documented in this encounter Plan of Treatment Scheduled Referrals Name Type Priority Associated Diagnoses Orde r Schedule ORTHOTICS REFERRAL Referral Routine S/P discectomy Ordered: 11/22/2017 documented as of this encounter Visit Diagnoses Diagnosis S/P discectomy- Primary Other postprocedural status documented in this encounter Care Teams Logistics System Engineer Relationship Specialty Start Date End Date Kevenjose j Mariano PCP - General Family Practice 03/30/17 documented as of this encounter
== END 2023-06-19 21:18 | disposition home or self-care (01) ==
LOC: SLEEP 21:18
PROVIDERS: Visit Provider Internal Medicine
DX: G47.33 Obstructive sleep apnea (adult) (pediatric) (principal)
CPT/HCPCS: 95811